=== PATIENT | male | born 1955 | race Caucasian/White ===

== ENCOUNTER 2022-08-04 14:27 | Outpatient (CLI) | payer OTHER, SELFPAY ==
--- OUTSIDE RECORDS SUMMARY | 2022-08-04 14:30 | XMS_ITS | Encounter Summary ---
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 [facility] Procedures Cardiac Rehab Program [address], [address] [place], [place] [address] Referral ID Status Reason Start Date Expiration Date Visits V isits Requested Authorized [id number] Authorized 03/12/2022 03/12/2023 36 36 Reason for Visit Outpatient (Routine) - Authorized Specialty Diagnoses / Procedures Referred By Contact Refer red To Contact Diagnoses Coronary Artery Disease With Stable Angina (With Other Forms Angina Pectoris) ([facility]) [facility] Procedures Cardiac Rehab Program [address], [address] [place], [place] [address] Referral ID Status Reason Start Date Expiration Date Visits V isits Requested Authorized [id number] Authorized 03/12/2022 03/12/2023 36 36 Encounter Details Date Type Department Care Team Description 07/01/2022 Hospital Encounter Department of Cardiac Benja Fry Coronary Artery Rehabilitation ashlee Palomo M.D. 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 aspirin [address] tablet Take 81 mg by mouth 0 daily. clopidogreL (PLAVIX) 75 mg Take 75 mg by mouth 0 tablet daily. levothyroxine (SYNTHROID, Take 125 mcg by 0 LEVOTHROID) 125 mcg tablet mouth every morning before breakfast. metoprolol tartrate Take 25 mg by mouth 0 (LOPRESSOR) 25 mg tablet 2 (two) times a day. nitroglycerin (NITROSTAT) Place 0.4 mg under 0 0.4 mg SL tablet the tongue every 5 (five) minutes as needed for chest pain. rosuvastatin (CRESTOR) 20 Take 20 mg by mouth 0 mg tablet daily. documented as of this encounter Plan of Treatment Upcoming Encounters Date Type Specialty Care Team Description 08/06/2022 Appointment Cardiovascular Disease Benja Fry M.D. [address] [facility] [address] [place] [address] (Wo rk) Scheduled Orders Name Type Priority Associated Diagnoses Order S chedule Cardiac Rehab Card Rehab Routine Coronary Artery Once for 1 Occurrences Program Disease With Stable starting 07/01/2022 Angina (With Other until Forms Angina Pectoris) ([facility]) documented as of this encounter Visit Diagnoses Diagnosis Coronary Artery Disease With Stable Vivienne na (With Other Forms Angina Pectoris) ([facility]) documented in this encounter Additional Health Concerns Assessment Noted Time PHQ-9 Depression Total Score: 6 03/16/2022 9:52 AM CDT documented as of this encounter
--- OUTSIDE RECORDS SUMMARY | 2022-08-04 14:30 | XMS_ITS | Encounter Summary ---
:1955 Author Organization [facility] Address [address] [place] [address] Care Team Providers Name Role Phone Unavailable Primary Care Provider Unavailable Reason for Referral Outpatient (Routine) - Authorized Specialty Diagnoses / Procedures Referred By Contact Refer red To Contact Diagnoses Coronary Artery Disease With Stable Angina (With Other Forms Angina Pectoris) ([facility]) Benja Fry M.D. [facility] Procedures Cardiac Rehab Program [address], [address] [place], [place] [address] Referral ID Status Reason Start Date Expiration Date Visits V isits Requested Authorized [id number] Authorized 03/12/2022 03/12/2023 36 36 Reason for Visit Outpatient (Routine) - Authorized Specialty Diagnoses / Procedures Referred By Contact Refer red To Contact Diagnoses Coronary Artery Disease With Stable Angina (With Other Forms Angina Pectoris) ([facility]) [facility]. [facility] Procedures Cardiac Rehab Program [address], [address] [place], [place] [address] Referral ID Status Reason Start Date Expiration Date Visits V isits Requested Authorized [id number] Authorized 03/12/2022 03/12/2023 36 36 Encounter Details Date Type Department Care Team Description 07/07/2022 Hospital Encounter Department of Cardiac Benja Fry Coronary Artery Rehabilitation ashlee Palomo M.D. Disease With Stable [place], [facility] deejay [address], Angina (With Other [address] [place] [address] [address] Forms Angina [place], [place], Pectoris) ( [facility]) [id number] [place] [address] [phone] Social History Tobacco Use Types Packs/Day Years [...] Disease Benja Fry M.D. [address] [facility] [address] [place] [address] (Wo rk) Scheduled Orders Name Type Priority Associated Diagnoses Order S chedule Cardiac Rehab Card Rehab Routine Coronary Artery Once for 1 Occurrences Program Disease With Stable starting 07/07/2022 Angina (With Other until Forms Angina Pectoris) ([facility]) documented as of this encounter Visit Diagnoses Diagnosis Coronary Artery Disease With Stable Vivienne na (With Other Forms Angina Pectoris) ([facility]) documented in this encounter Additional Health Concerns Assessment Noted Time PHQ-9 Depression Total Score: 6 03/16/2022 9:52 AM CDT documented as of this encounter
--- OUTSIDE RECORDS SUMMARY | 2022-08-04 14:30 | XMS_ITS | Encounter Summary ---
:1955 Author Organization [facility] Address [address] [place] [address] Care Team Providers Name Role Phone Unavailable Primary Care Provider Unavailable Reason for Referral Outpatient (Routine) - Authorized Specialty Diagnoses / Procedures Referred By Contact Refer red To Contact Diagnoses Coronary Artery Disease With Stable Angina (With Other Forms Angina Pectoris) ([facility]) Benja Fry M.D. [facility] Procedures Cardiac Rehab Program [address], [address] [place], [place] [address] Referral ID Status Reason Start Date Expiration Date Visits V isits Requested Authorized [id number] Authorized 03/12/2022 03/12/2023 36 36 Reason for Visit Outpatient (Routine) - Authorized Specialty Diagnoses / Procedures Referred By Contact Refer red To Contact Diagnoses Coronary Artery Disease With Stable Angina (With Other Forms Angina Pectoris) ([facility]) [facility]. [facility] Region Procedures Cardiac Rehab Program [address], [address] [place], [place] [address] Referral ID Status Reason Start Date Expiration Date Visits V isits Requested Authorized [id number] Authorized 03/12/2022 03/12/2023 36 36 Encounter Details Date Type Department Care Team Description 06/30/2022 Hospital Encounter Department of Cardiac Benja Fry Coronary Artery Rehabilitation ashlee Palomo M.D. 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 [address] [facility] [address] [place] [address] (Wo rk) Scheduled Orders Name Type Priority Associated Diagnoses Order S chedule Cardiac Rehab Card Rehab Routine Coronary Artery Once for 1 Occurrences Program Disease With Stable starting 06/30/2022 Angina (With Other until Forms Angina Pectoris) ([facility]) documented as of this encounter Visit Diagnoses Diagnosis Coronary Artery Disease With Stable Vivienne na (With Other Forms Angina Pectoris) ([facility]) documented in this encounter Additional Health Concerns Assessment Noted Time PHQ-9 Depression Total Score: 6 03/16/2022 9:52 AM CDT documented as of this encounter
--- OUTSIDE RECORDS SUMMARY | 2022-08-04 14:30 | XMS_ITS | Clinical Summary ---
:1955 Author Organization [facility] Address [address] [place] [address] Care Team Providers Name Role Phone Unavailable Primary Care Provider Unavailable Source Comments Patient records contain information from all sites at [facility]. For routine questions regarding patient records, call [phone] during business hours, M-F 8:00 AM - 5:00 PM Central Time. Record requests for emergency care only can be directed to [phone] at any time.[facility] Medications Medication Sig Dispensed Refills Start Date End Date Status amLODIPine (NORVASC) 5 Take 5 mg by 0 Active mg tablet mouth daily. aspirin [address] tablet Take 81 mg by 0 Active mouth daily. clopidogreL (PLAVIX) 75 Take 75 mg by 0 Active mg tablet mouth daily. levothyroxine Take 125 mcg by 0 Active (SYNTHROID, LEVOTHROID) mouth every 125 mcg tablet morning before breakfast. metoprolol tartrate Take 25 mg by 0 Active (LOPRESSOR) 25 mg mouth 2 (two) tablet times a day. nitroglycerin Place 0.4 mg 0 Act nathan (NITROSTAT) 0.4 mg SL under the tongue tablet every 5 (five) minutes as needed for chest pain. rosuvastatin (CRESTOR) Take 20 mg by 0 Active 20 mg tablet mouth daily. Encounters Date Type Specialty Care Team Description 08/04/2022 Hospital Encounter Cardiovascular Benja Fry Gonzalez ry Artery Disease Hai Palomo Disease With Stable Angina (With Other For ms Angina Pectoris ) ([facility]) 08/02/2022 Hospital Encounter Cardiovascular Benja Fry [place] ry Artery Disease Hai Palomo Disease With Stable Angina (With Other For ms Angina Pectoris ) ([facility]) 07/30/2022 Hospital Encounter Cardiovascular Benja Fry [place] ry Artery Disease Hai Palomo Disease With Stable Angina (With Other For ms Angina Pectoris ) ([facility]) 07/28/2022 Hospital Encounter Cardiovascular [place], Benja Gonzalez ry Artery Disease K, M.D. Disease With Stable Angina (With Other For ms Angina Pectoris ) ([facility]) 07/26/2022 Hospital Encounter Cardiovascular [place], Benja Gonzalez ry Artery Disease K, M.D. Disease With Stable Angina (With Other For ms Angina Pectoris ) ([facility]) 07/21/2022 Hospital Encounter Cardiovascular [place], Benja Gonzalez ry Artery Disease K, M.D. Disease With Stable Angina (With Other For ms Angina Pectoris ) ([facility]) 07/19/2022 Hospital Encounter Cardiovascular [place], Benja Gonzalez ry Artery Disease K, M.D. Disease With Stable Angina (With Other For ms Angina Pectoris ) ([facility]) 07/16/2022 Hospital Encounter Cardiovascular [place], Benja Gonzalez ry Artery Disease K, M.D. Disease With Stable Angina (With Other For ms Angina Pectoris ) ([facility]) 07/14/2022 Hospital Encounter Cardiovascular [place], Benja Gonzalez ry Artery Disease K, M.D. Disease With Stable Angina (With Other For ms Angina Pectoris ) ([facility]) 07/09/2022 Hospital Encounter Cardiovascular [place], Benja Gonzalez ry Artery Disease K, M.D. Disease With Stable Angina (With Other For ms Angina Pectoris ) ([facility]) 07/07/2022 Hospital Encounter Cardiovascular [place], Benja Gonzalez ry Artery Disease K, M.D. Disease With Stable Angina (With Other For ms Angina Pectoris ) ([facility]) 07/05/2022 Hospital Encounter Cardiovascular [place], Benja Gonzalez ry Artery Disease K, M.D. Disease With Stable Angina (With Other For ms Angina Pectoris ) ([facility]) 07/01/2022 Hospital Encounter Cardiovascular [place], Benja Gonzalez ry Artery Disease K, M.D. Disease With Stable Angina (With Other For ms Angina Pectoris ) ([facility]) 06/30/2022 Hospital Encounter Cardiovascular [place], Benja Gonzalez ry Artery Disease K, M.D. Disease With Stable Angina (With Other For ms Angina Pectoris ) ([facility]) 06/25/2022 Hospital Encounter Cardiovascular [place], Benja Gonzalez ry Artery Disease K, M.D. Disease With Stable Angina (With Other For ms Angina Pectoris ) ([facility]) 06/25/2022 Clinical Cardiovascular [facility], Scheduling Communication Disease Dipti R 06/18/2022 Hospital Encounter Cardiovascular [place], Benja Gonzalez ry Artery Disease K, M.D. Disease With Stable Angina (With Other For ms Angina Pectoris ) ([facility]) 06/14/2022 Hospital Encounter Cardiovascular [place], Benja Gonzalez ry Artery Disease K, M.D. Disease With Stable Angina (With Other For ms Angina Pectoris ) ([facility]) 06/11/2022 Hospital Encounter Cardiovascular [place], Benja Gonzalez ry Artery Disease K, M.D. Disease With Stable Angina (With Other For ms Angina Pectoris ) ([facility]) 06/09/2022 Hospital Encounter Cardiovascular [place], Benja Gonzalez ry Artery Disease K, M.D. Disease With Stable Angina (With Other For ms Angina Pectoris ) ([facility]) 06/07/2022 Hospital Encounter Cardiovascular [place], Benja Gonzalez ry Artery Disease K, M.D. Disease With Stable Angina (With Other For ms Angina Pectoris ) ([facility]) 06/04/2022 Hospital Encounter Cardiovascular [place], Benja Gonzalez ry Artery Disease K, M.D. Disease With Stable Angina (With Other For ms Angina Pectoris ) ([facility]) 06/02/2022 Hospital Encounter Cardiovascular [place], Benja Gonzalez ry Artery Disease K, M.D. Disease With Stable Angina (With Other For ms Angina Pectoris ) ([facility]) 05/31/2022 Hospital Encounter Cardiovascular [place], Benja Gonzalez ry Artery Disease K, M.D. Disease With Stable Angina (With Other For ms Angina Pectoris ) ([facility]) 05/28/2022 Hospital Encounter Cardiovascular [place], Benja Gonzalez ry Artery Disease K, M.D. Disease With Stable Angina (With Other For ms Angina Pectoris ) ([facility]) 05/26/2022 Hospital Encounter Cardiovascular [place], Benja Gonzalez ry Artery Disease K, M.D. Disease With Stable Angina (With Other For ms Angina Pectoris ) ([facility]) 05/24/2022 Hospital Encounter Cardiovascular [place], Ebnja Gonzalez ry Artery Disease K, M.D. Disease With Stable Angina (With Other For ms Angina Pectoris ) ([facility]) from Last 3 Months Social History Tobacco Use Types Packs/Day Years Used Date Smoking Tobacco: Never Assessed Sex Assigned at Date Recorded Not on file Last Filed Vital Signs Vital Sign Reading Time Taken Comments Blood Pressure 120/66 08/03/2022 10:27 AM CDT Pulse - - Temperature - - Respiratory Rate - - Oxygen Saturation - - Inhaled Oxygen Concentration - - Weight 86.2 kg (190 lb) 03/16/2022 9:00 AM CDT Height 172.7 cm (5' 7.99) 08/03/2022 10:00 AM CDT Body Mass Index 28.89 03/16/2022 9:00 AM CDT Plan of Treatment Upcoming Encounters Date Type Specialty Care Team Description 08/06/2022 Appointment Cardiovascular Disease Benja Fry M.D. [address] [address] [place] [address] (Wo rk) Health Maintenance Due Date Last Done Comments CT Colonography 1955 Cologuard 1955 Colonoscopy 1955 Colorectal Cancer Screening 1955 FIT 1955 HIV Screening 1955 Hepatitis C Screening 1955 Thyroid Stimulating Hormone 1955 (TSH) test for thyroid function Zoster Vaccines (1 of 2) 2007 Depression Screening 11/07/2021 (Annual PHQ-2) COVID-19 Vaccine (5 - 05/04/2022 03/09/2022, 09/28/2021, Booster for Pfizer series) 03/03/2021, Additiona l history exists Influenza Vaccine (#1) 2022 09/28/2021, 08/12/2021, 10/10/2020 Creatinine Level 01/14/2023 01/14/2022, 01/13/2022 Sodium Level 01/14/2023 01/14/2022, 01/13/2022 Potassium Level 03/04/2023 03/04/2022, 01/14/2022, 01/13/2022 Fasting Glucose for 01/14/2025 01/14/2022, 01/13/2022 Diabetes Screening Lipid (Cholesterol) 03/02/2027 03/02/2022 Screening DTaP,Tdap,and Td Vaccines 06/10/2027 06/10/2017 (2 - Td or Tdap) Pneumococcal vaccine (0-64 Aged Out No lo nger eligible years) based on patient 's age to complete this topic Insurance Payer Benefit Plan / Subscriber ID Effective Dates Phone Addre ss Type Group NAVEED NAVEED [id number] 2018-Present [phone] [address] [place] [address]
--- OUTSIDE RECORDS SUMMARY | 2022-08-04 14:30 | XMS_ITS | Encounter Summary ---
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 [facility] Procedures Cardiac Rehab Program [address], [address] [place], [place] [address] Referral ID Status Reason Start Date Expiration Date Visits V isits Requested Authorized [id number] Authorized 03/12/2022 03/12/2023 36 36 Reason for Visit Outpatient (Routine) - Authorized Specialty Diagnoses / Procedures Referred By Contact Refer red To Contact Diagnoses Coronary Artery Disease With Stable Angina (With Other Forms Angina Pectoris) ([facility]) [facility] Procedures Cardiac Rehab Program [address], [address] [place], [place] [address] Referral ID Status Reason Start Date Expiration Date Visits V isits Requested Authorized [id number] Authorized 03/12/2022 03/12/2023 36 36 Encounter Details Date Type Department Care Team Description 06/25/2022 Hospital Encounter Department of Cardiac Benja Fry Coronary Artery Rehabilitation ashlee Palomo M.D. 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 documented as of this encounter Progress Notes Chau Sow CCRP - 06/25/2022 8:00 AM CDT Cardiac Rehab Individualized Treatment Plan (ITP) Mr. Chowdary (66 y.o., : 1955) was referred to the [facility] Cardiac Rehab Program and has completed 16 sessions. Medical Record Number (MRN): [id number] Encounter Date: 06/25/2022 PCP: No primary care provider on file. Referring Provider and Rotor Coil Taper 03/16/[address] Yohan Gannon Prescribed Sessions 36 Program Information 03/16/2022 Program Type CR Phase II - Center Based Referral Date 03/03/2022 Primary Diagnosis PCI Date 03/02/2022 Secondary Diagnosis PCI PCI Date 01/13/2022 Enrollment Date 03/16/2022 Risks 03/16/2022 AACVPR Risk Low ECHO Date 03/03/2022 Ejection Fraction (EF) % 66 % Symptoms: Symptoms 03/16/2022 06/01/2022 06/29/2022 Charting Type Initial Assessment Reassessment Reassessment Kenny Dyspnea 2 - Slight 2 - Slight 2 - Slight Cardiovascular Symptoms Claudication;Fatigue;Shortness of Breath;Lightheadedness Claudication;Shortness of Breath;Lightheadedness;Fatigue Claudication;Shortness of Breath;Fatigue;Lightheadedness Claudication Scale 4 - Moderate Claudication (significant, but able to keep walking) 3 - Mild Claudication (easily forgot about) 2 - Onset of Claudication Pain Generalized Edema None None None Right Lower Extremity Edema None None None Left Lower Extremity Edema None None None Circulation Edema No No No Edema Severity None None None Comments - PAD was diagnosed and procedure completed early May; some leg pain is still noted but heis able to walk further without the need to stop PAD sx have improved; able to walk further without the need for rest Exercise Assessment Vital Signs 03/16/2022 06/01/2022 06/29/2022 Source ECG ECG ECG Heart Rate 72 103 81 Source Pulse oximetry Pulse oximetry Pulse oximetry Cardiac Rhythm SR;SB SR SR;SB Ectopy PVCs PVCs PVCs Ectopy Frequency Rare Rare Rare Six Minute Walk Test (6MWT) 03/16/2022 Total Distance Walked (Meters) 228.6 Estimated METs 2.19 % OF PREDICTED DISTANCE 42.83 % Comments stood and stopped; did not sit; needed to due to claudication discomfort that went away with stopping DASI Calculations 03/16/2022 Estimated V02 Peak 23.12 Estimated MET Level 6.61 IPAQ 03/16/2022 MET-mins/week 278 Exercise Session 03/16/2022 06/01/2022 06/29/2022 Session # 1 5 16 Peak METs 2.1 2.5 2.5 Assessment 03/16/2022 06/01/2022 06/29/2022 Exercise Stage of Change Preparation Action Action Assistive Device None None None Do you exercise routinely? No No No Do you perform strength training? No No No Exercise Limitations Yes Yes Yes Limitation Description claudication like sx limit walking progression - - Action Taken will take rest breaks as needed PAD procedure completed; able to walk on TM with no rest breaks - Fall Risk Assessment 03/16/2022 Have you fallen within the last year or do you fear you might fall? No Do you use an assisted device to walk? (Walker, cane, wheelchair, crutch) No Today, do you feel any of the following? Weak, dizzy, shaky, or unsteady? No Have you taken any medication within the last 6 hours which may make you feel drowsy? Such as sleep,pain, or anxiety medication No Exercise Plan Exercise Prescription 03/16/2022 06/01/2022 06/29/2022 Frequency 3-5 sessions per week 3-5 sessions per week 3-5 sessions per week Intensity Work at a level that is comfortable but also challenging Work at a level that is comfortable but also challenging Work at a level that is comfortable but also challenging Target heart rate (pulse): 100-110 100-110 100-110 Rating of Perceived Exertion range (RPE): 11-14 11-14 -14 Rating of Perceived Dyspnea (Kenny Dyspnea): -01/14-01/14-01/14 METS: 2.1-3.1 2.5-3.5 2.5-3.5 Maintain SpO2 at this percentage: 97 97 97 Treadmill Speed: 1.5 1.6 1.6 Treadmill Grade: 0 0 0 Duration Warm-up minutes;Aerobic exercise minutes;Increase 1-5 minutes each session, as tolerated Warm-up minutes;Aerobic exercise minutes;Increase 1-5 minutes each session, as tolerated Warm-up minutes;Aerobic exercise minutes;Increase 1-5 minutes each session, as tolerated Warm Up Minutes: 2-3 2-3 2-3 Aerobic exercise minutes: 30 45 45 Cool Down minutes: 2-3 2-3 2-3 Gradually progress to this many minutes per week: 150 150 150 Goal minutes: 55 55 55 Type Arm Ergometer;Recumbent stepper (with or without arms);Walk indoors;Walk outdoors;Walk treadmill Arm Ergometer;Recumbent stepper (with or without arms);Walk indoors;Walk outdoors;Walk treadmill Arm Ergometer;Recumbent stepper (with or without arms);Walk indoors;Walk outdoors;Walk treadmill Interval Training Moderate intensity interval training Moderate intensity interval training Moderateintensity interval training Progression Use RPE to guide when to increase work level intensity and duration Use RPE to guide when to increase work level intensity and duration Use RPE to guide when to increase work level intensity and duration Increase continuous exercise to this many minutes: 55 55 55 Increase by this many METS: 3.5 3.5 3.5 Flexibility and Balance Stretch major muscle groups daily Stretch major muscle groups daily Stretch major muscle groups daily Strength Training Calisthenics Calisthenics Calisthenics Reps: 10 10 10 Sets: 1 1 1 Other Exercise Avoid prolonged sitting;Gardening/Yardwork/Housework;Farm Chores;Pedometer: 2,500 steps per day above baseline;Play with children;Take the stairs;Walk for transportation;Walk on work breaks Avoid prolonged sitting;Gardening/Yardwork/Housework;Farm Chores;Pedometer: 2,500 steps per day above baseline;Take the stairs;Walk for transportation Avoid prolonged sitting;Gardening/Yardwork/Housework;Farm Chores;Pedometer: 2,500 steps per day above baseline;Take the stairs;Walk for transportation Plan 03/16/2022 06/01/2022 06/29/2022 Charting Type Initial Assessment Reassessment Reassessment Goals Compliance to on-site program;Compliance to home program;Return to work / community service;Target MET level (Comment);Improve exercise tolerance Compliance to on-site program;Compliance to home program;Return to work / community service;Target MET level (Comment);Improve exercise tolerance Compl iance to on-site program;Compliance to home program;Return to work / community service;Target MET level (Comment);Improve exercise tolerance Interventions Therapist Discussion;Vocational/return to work recommendations;Equipment/facility orientation;Review of signs/symptoms to report;Exercise/activity guidelines Therapist Discussion;Vocational/return to work recommendations;Equipment/facility orientation;Review of signs/symptoms to report;Exercise/activity guidelines Therapist Discussion;Vocational/return to work recommendations;Equipment/facility orientation;Review of signs/symptoms to report;Exercise/activity guidelines Progress Toward Goals 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; 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 but is able to get things done 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; 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sx but is able to get things done 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; 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 but is able to get things done Activity Education ACTIVITY LOG [id number];EXERCISE AND PHYSICAL ACTIVITY GUIDELINES FOR PEOPLE WITH HEART DISEASE [id number];EXERCISE PROGRAM GUIDELINES [id number] ACTIVITY LOG [id number];EXERCISE AND PHYSICAL ACTIVITY GUIDELINES FOR PEOPLE WITH HEART DISEASE [id number];EXERCISE PROGRAM GUIDELINES [id number] ACTIVITY LOG [id number];EXERCISE AND PHYSICAL ACTIVITY GUIDELINES FOR PEOPLE WITH HEART DISEASE [id number];EXERCISEPROGRAM GUIDELINES [id number] Comments - PAD procedure in early May; able to walk on TM without the need for 3 rest breaks as it was prior to procedure no change Nutrition Assessment Vital Signs 03/16/2022 06/01/2022 06/29/2022 Height 172.7 cm 172.7 cm 172.7 cm Weight 86.183 kg - - BMI (Calculated) 28.9 - - Assessment 03/16/2022 06/01/2022 06/29/2022 Nutrition Stage of Change Maintenance Maintenance Maintenance Dietary Recommendations Low Salt;Low Fat/ Low Cholesterol Low Salt;Low Fat/ Low Cholesterol Low Salt;Low Fat/ Low Cholesterol Low Salt Amount 2000 mg 2000 mg 2000 mg Appetite Good Good Good Social History Substance and Sexual Activity Alcohol Use Not on file Nutrition Plan Plan 03/16/2022 06/01/2022 06/29/2022 Charting Type Initial Assessment Reassessment Reassessment Goals Increase fruit intake;Increase vegetable intake;Decrease overall portions;Compliance with dietary guidelines;Normalize appetite;Reduce saturated fat intake;Limit sodium intake Increase fruit intake;Increase vegetable intake;Decrease overall portions;Compliance with dietary guidelines;Normalize ap petite;Reduce saturated fat intake;Limit sodium intake Increase fruit intake;Increase vegetable intake;Decrease overall portions;Compliance with dietary guidelines;Normalize appetite;Reduce saturated fat intake;Limit sodium intake Goal Weight no goal weight set on initial session no goal weight set on initial session no goal weight set on initial session Modify weight by Decrease;Percent (%) Decrease;Percent (%) Decrease;Percent (%) Percent (%) 5 % 5 % 5 % Interventions Dietary Consult Referral;Discussion on identifying/incorporating diet changes;Home weight monitoring;Discussion on current eating habits;Diet survey review;Meal/snack related to exercise;Nutrition Class;Therapist Discussion Dietary Consult Referral;Discussion on identifying/incorporatingdiet changes;Home weight monitoring;Discussion on current eating habits;Diet survey review;Meal/snack related to exercise;Nutrition Class;Therapist Discussion Dietary Consult Referral;Discussion on identifying/incorporating diet changes;Home weight monitoring;Discussion on current eating habits;Diet survey review;Meal/snack related to exercise;Nutrition Class;Therapist Discussion Progress Toward Goals pt is working on low salt; low cholesterol pt is working on low salt; low cholesterol pt is working on low salt; low cholesterol Nutrition Education LOWERING HIGH CHOLESTEROL THROUGH DIET [id number];CONTRACTS MANAGER CONSULT/CLASS LOWERING HIGH CHOLESTEROL THROUGH DIET [id number];CONTRACTS MANAGER CONSULT/CLASS LOWERING HIGH CHOLESTEROL THROUGH DIET [id number];CONTRACTS MANAGER CONSULT/CLASS Comments - no change no change Psychosocial Assessment PHQ-9 03/16/2022 Charting Type Initial Assessment PHQ-9 Score 6 Interpretation [facility] 03/16/2022 Total Score 20 Assessment 03/16/2022 06/01/2022 06/29/2022 Psychosocial Stage of Change Maintenance Maintenance Maintenance Current Medication Therapy No No No Support Systems Spouse;Significant other;Children;Family members - - Patient Stress Factors Health changes Health changes Health changes Needs Expressed Denies Denies Denies Psychosocial Plan Plan 03/16/2022 06/01/2022 06/29/2022 Charting Type Initial Assessment Reassessment Reassessment Goals Verbalize appropriate coping skills;Identify a positive support system;Utilize support system;Improve PHQ-9 score;Return to leisure and social activities;Return to vocational activities;Identifies stressors;Normalize Sleep patterns;Verbalize realistic health related expectations Verbalize appropriate coping skills;Identify a positive support system;Utilize support system;Improve PHQ-9 score;Return to leisure and social activities;Return to vocational activities;Identifies stressors;Normalize Sleep patterns;Verbalize realistic health related expectations Verbalize appropriate coping skills;Identify a positive support system;Utilize support system;Improve PHQ-9 score;Return to leisure and social activities;Return to vocational activities;Identifies stressors;Normalize Sleep patterns;Verbalizerealistic health related expectations Interventions Therapist Discussion;Patient declined intervention;Review depression S/S;Assist patient in identifying stressors Therapist Discussion;Patient declined intervention;Review depression S/S;Assist patient in identifying stressors Therapist Discussion;Patient declined intervention;Review depression S/S;Assist patient in identifying stressors Progress Toward Goals pt is frustrated with PAD like sx that limit him; he plans to discuss treatment further with his PCP as it is not on his diagnosis list pt is frustrated with PAD like sx that limit him; he plans to discuss treatment further with his PCP as it is not on his diagnosis list pt is frustrated with PAD like sx that limit him; he plans to discuss treatment further with his PCP as it isnot on his diagnosis list Psychosocial Education STRESS MANAGEMENT/RELAXATION TECHNIQUE CLASS STRESS MANAGEMENT/RELAXATION TECHNIQUE CLASS STRESS MANAGEMENT/RELAXATION TECHNIQUE CLASS Comments - PAD sx improved no change Other Core Components Hypertension Assessment Vital Signs 03/16/2022 06/01/2022 06/29/2022 BP 130/68 116/74 146/78 BP Location Left arm;Upper Left arm;Upper Left arm;Upper Assessment 03/16/2022 06/01/2022 06/29/2022 Hypertension Stage of Change Action Action Action History of Hypertension Yes Yes Yes Current Medication Therapy Yes Yes Yes Hypertension Plan Plan 03/16/2022 06/01/2022 06/29/2022 Charting Type Initial Assessment Reassessment Reassessment Goals Stable BP response;BP at physician prescribed goal;Decrease sodium Stable BP response;BP at physician prescribed goal;Decrease sodium Stable BP response;BP at physician prescribed goal;Decrease sodium Interventions Therapist Discussion;Communication with provider Therapist Discussion;Communication with provider Therapist Discussion;Communication with provider Progress Toward Goals pt is recent to BP medications; his BP is better now than before; tolerating medications well and working on low salt diet pt is recent to BP medications; his BP is better now than before; tolerating medications well and working on low salt diet pt is recent to BP medications; his BP is better now than before; tolerating medications well and working on low salt diet Hypertension Education BLOOD PRESSURE RECORD WALLET CARD [id number];HIGH BLOOD PRESSURE (HYPERTENSION) [id number];MANAGING CHOLESTEROL SODIUM AND TRIGLYCERIDES [id number] BLOOD PRESSURE RECORD WALLET CARD [id number];HIGH BLOOD PRESSURE (HYPERTENSION) [id number];MANAGING CHOLESTEROL SODIUM AND TRIGLYCERIDES [id number] BLOOD PRESSURE RECORD WALLET CARD [id number];HIGH BLOOD PRESSURE (HYPERTENSION) [id number];MANAGING CHOLESTEROL SODIUM AND TRIGLYCERIDES SX4805-09 Comments - no change no change Hyperlipidemia Assessment Assessment 03/16/2022 06/01/2022 06/29/2022 History of Hyperlipidemia Yes Yes Yes Current Medication Therapy Yes Yes Yes Hyperlipidemia Stage of Change Maintenance Maintenance Maintenance Lipids No lab values to display. Hyperlipidemia Plan Plan 03/16/2022 06/01/2022 06/29/2022 Charting Type Initial Assessment Reassessment Reassessment Goals Improve Lipids;Lipids in optimal range;Understand current Lipid profile Improve Lipids;Lipids in optimal range;Understand current Lipid profile Improve Lipids;Lipids in optimal range;Understand current Lipid profile Interventions Therapist Discussion;[employer] Travel Counselor consult/class;Review lipid profile;Discussion on statins Therapist Discussion;[employer] Travel Counselor consult/class;Review lipid profile;Discussion on statins Therapist Ashely borjas;[employer] Travel Counselor consult/class;Review lipid profile;Discussion on statins Progress Toward Goals tolerating statin well tolerating statin well tolerating statin well Hyperlipidemia Education LOWERING HIGH CHOLESTEROL THROUGH DIET [id number] LOWERING HIGH CHOLESTEROL THROUGH DIET [id number] LOWERING HIGH CHOLESTEROL THROUGH DIET [id number] Comments - no change no change Diabetes Assessment Lab Results None Diabetes Plan Plan 03/16/2022 06/01/2022 06/29/2022 Charting Type Initial Assessment Reassessment Reassessment Tobacco Assessment Smoking History/Assessment 03/16/2022 Smoking Status Former (greater than 6 months) Quit Date 11/15/2005 Smoking Types cigarettes Packs Per Day 1 Years 32 Assessment 03/16/2022 06/01/2022 06/29/2022 Charting Type Initial Assessment Reassessment Reassessment Tobacco Stage of Change Maintenance - - Exposure to second hand smoke None Identified None Identified None Identified Social History Substance and Sexual Activity Drug Use Not on file Drug Abuse Screening Test (DAST) 03/16/2022 06/01/2022 06/29/2022 How many times in the past year have you used a recreational drug or used a prescription medication for nonmedical reasons? Never Never Never Tobacco Plan Plan 03/16/2022 06/01/2022 06/29/2022 Charting Type Initial Assessment Reassessment Reassessment Progress Toward Goals has been smoke free since 2005 and it is going well - - Heart Failure Assessment Assessment 03/16/2022 06/01/2022 06/29/2022 Generalized Edema None None None Right Lower Extremity Edema None None None Left Lower Extremity Edema None None None Circulation Edema No No No Edema Severity None None None Heart Failure Plan Plan 03/16/2022 06/01/2022 06/29/2022 Charting Type Initial Assessment Reassessment Reassessment Medication Compliance Assessment Assessment 03/16/2022 06/01/2022 06/29/2022 Med Compliance Stage of Change Maintenance Maintenance Maintenance Medication Compliance Plan Plan 03/16/2022 06/01/2022 06/29/2022 Charting Type Initial Assessment Reassessment Reassessment Goals Medication compliance;Knowledge of medication (Comment) Medication compliance;Knowledge of medication (Comment) Medication compliance;Knowledge of medication (Comment) Interventions Therapist Discussion;Medication review Therapist Discussion;Medication review Therapist Discussion;Medication review Comments reviewed on initial session - - Fletcher Education/Other Education: Medications were reviewed every visit. documented in this encounter Plan of Treatment Upcoming Encounters Date Type Specialty Care Team Description 08/06/2022 Appointment Cardiovascular Disease Benja Fry M.D. [address] [place] [address] [address] [place] [address] (Wo rk) Scheduled Orders Name Type Priority Associated Diagnoses Order S chedule Cardiac Rehab Card Rehab Routine Coronary Artery Once for 1 Occurrences Program Disease With Stable starting 06/25/2022 Angina (With Other until Forms Angina Pectoris) ([facility]) documented as of this encounter Visit Diagnoses Diagnosis Coronary Artery Disease With Stable Vivienne na (With Other Forms Angina Pectoris) ([facility]) documented in this encounter Additional Health Concerns Assessment Noted Time PHQ-9 Depression Total Score: 6 03/16/2022 9:52 AM CDT documented as of this encounter
--- OUTSIDE RECORDS SUMMARY | 2022-08-04 14:30 | XMS_ITS | Encounter Summary ---
:1955 Author Organization [facility] Address [address] [place] [address] Care Team Providers Name Role Phone Unavailable Primary Care Provider Unavailable Reason for Referral Outpatient (Routine) - Authorized Specialty Diagnoses / Procedures Referred By Contact Refer red To Contact Diagnoses Coronary Artery Disease With Stable Angina (With Other Forms Angina Pectoris) ([facility]) Benja Fry M.D. [facility] Procedures Cardiac Rehab Program [address], [address] [place], [place] [address] Referral ID Status Reason Start Date Expiration Date Visits V isits Requested Authorized [id number] Authorized 03/12/2022 03/12/2023 36 36 Reason for Visit Outpatient (Routine) - Authorized Specialty Diagnoses / Procedures Referred By Contact Refer red To Contact Diagnoses Coronary Artery Disease With Stable Angina (With Other Forms Angina Pectoris) ([facility]) [facility].D. [facility] [place] [facility] Procedures Cardiac Rehab Program [address], [address] [place], [place] [address] Referral ID Status Reason Start Date Expiration Date Visits V isits Requested Authorized [id number] Authorized 03/12/2022 03/12/2023 36 36 Encounter Details Date Type Department Care Team Description 07/30/2022 Hospital Encounter Department of Cardiac Benja Fry Coronary Artery Rehabilitation ashlee Palomo M.D. Disease With Stable [place], [facility] rotary drier [address], Angina (With Other [address] [place] [address] [address] Forms Angina [place], [place], Pectoris) ( [facility]) [id number] [place] [address] [phone] Social History Tobacco Use Types Packs/Day Years [...] Disease Benja Fry M.D. [address] [facility] [facility] [address] [place] [address] (Wo rk) Scheduled Orders Name Type Priority Associated Diagnoses Order S chedule Cardiac Rehab Card Rehab Routine Coronary Artery Once for 1 Occurrences Program Disease With Stable starting 07/30/2022 Angina (With Other until Forms Angina Pectoris) ([facility]) documented as of this encounter Visit Diagnoses Diagnosis Coronary Artery Disease With Stable Vivienne na (With Other Forms Angina Pectoris) ([facility]) documented in this encounter Additional Health Concerns Assessment Noted Time PHQ-9 Depression Total Score: 6 03/16/2022 9:52 AM CDT documented as of this encounter
--- OUTSIDE RECORDS SUMMARY | 2022-08-04 14:30 | XMS_ITS | Clinical Summary ---
:1955 Author Organization [email or web address] [place] [address] Care Team Providers Name Role Phone Flako Pierre MD Primary Care Provider Allergies No known active allergies Medications Medication Sig Dispensed Refills Start End Status Date Date multivitamins-mine Take 1 tablet by 0 Active rals-lutein mouth once daily. 1 (CENTRUM SILVER) tab tablet calcium 600 mg Take 2 capsules 0 Active capsule by mouth once 1 daily. levothyroxine Take 125 mcg by 0 Active (SYNTHROID) 125 mouth once daily. [address] 1 TABLET 0 A ctive (NITROSTAT) 0.4 mg UNDER THE TONGUE 2 sublingual tablet NEEDED FOR CHEST PAIN. MAY REPEAT EVERY 5 MINUTES FOR UP TO 3 DOSES. CALL 911 AFTER USE aspirin 81 mg cap Take by mouth. 0 Active acetaminophen SR Take 1,300 mg by 0 Active (TYLENOL mouth every 8 ARTHRITIS) 650 mg hours. Max Extended-Release acetaminophen tablet dose: 4000mg in 24 hrs. amLODIPine Take 1 Tablet (5 90 Tablet 0 Ac tive (NORVASC) 5 mg mg) by mouth once 2 tabletIndications: daily. HTN (hypertension) rosuvastatin Take 1 Tablet (20 90 Tablet 0 Active (CRESTOR) 20 mg mg) by mouth at 2 tabletIndications: bedtime. CAD S/P percutaneous coronary angioplasty clopidogreL Take 1 Tablet (75 90 Tablet 3 Active (PLAVIX) 75 mg mg) by mouth 2 tabletIndications: every morning. CAD S/P percutaneous coronary angioplasty isosorbide Take one-half 45 Tablet 0 Activ e mononitrate tablet (15 mg) by 2 (IMDUR) 30 mg mouth once daily. extended release tablet 24 HourIndications: CAD S/P percutaneous coronary angioplasty chlorthalidone Take 0.5 Tablets 45 Tablet 2 Active (HYGROTON) 25 mg (12.5 mg) by 2 tabletIndications: mouth every HTN (hypertension) morning. metoprolol Take 1 Tablet (25 180 Tablet 1 Active tartrate mg) by mouth two 2 (LOPRESSOR) 25 mg times daily. tabletIndications: Hypertension, unspecified type, PAD (peripheral artery disease) (HC) metoprolol Take one and 270 Tablet 0 Disco ntinued tartrate one-half tablets 2 022 (*E rror/Order (LOPRESSOR) 25 mg (37.5 mg) by entry error) tabletIndications: mouth 2 times CAD S/P daily. percutaneous coronary angioplasty metoprolol Take 1 Tablet (25 90 Tablet 1 D iscontinued tartrate mg) by mouth two 2 022 (*M edication (LOPRESSOR) 25 mg times daily. 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 S/P angiogram of extremity 05/18/2022 S/P insertion of iliac artery stent 05/18/2022 Overview: Bilateral iliac artery stents CAD S/P percutaneous coronary angioplasty 01/13/2022 Overview: - 01/13/22: s/p rotational atherectomy and NOAH X 2 mLAD *consider staged intervention to RCA - 03/02/22: complex PCI of severely disea sed RCA; rotational atherectomy utilized; s/p NOAH pRCA, s/p NOAH mRCA, s/p NOAH dRCA Paroxysmal atrial fibrillation 07/16/2011 Erectile dysfunction 07/16/2011 Encounters Date Type Specialty Care Team Description 07/07/2022 Office Visit Maninder Begum MD office vis it (OV; Imaging after visit; 6w FU aortogram and i liac stenting) 07/07/2022 Hospital Encounter Vivek Chan H, Periph eral vascular Allied Health disease with c laudication (HC) 07/07/2022 Travel 06/18/2022 Refill Abilio Qureshi Refill Request MD Luca (Chlorthalidone ) 05/18/2022 Anesthesia Event Ayo Dai MD Pickering, Jordan L, ALEXANDRA 05/18/2022 Surgery Maninder Begum MD PERCUTANEO US AORTOGRAM, BILATERAL ILIAC STENTING 05/18/2022 Hospital Encounter Maninder Begum MD 05/18/2022 Orders Only Shazia Banks <No scans att ached> MD Jerilyn 05/18/2022 Travel from Last 3 Months Social History Tobacco Use Types Packs/Day Years Used Date Former Smoker Cigarettes Quit: 11/15/19 06 Smokeless Tobacco: Never Used Tobacco Cessation: Counseling Given: Yes Comments: TIP 01/14/22 Alcohol Use Standard Drinks/Week Comments Yes 1.7 (1 standard drink = 0.6 oz pure alco hol) Sex Assigned at Date Recorded Not on file COVID-19 Exposure Response Date Recorded In the last 10 days, have you been in contact with No / Unsu re 07/07/2022 1:43 PM CDT someone who was confirmed or suspected to have Coronavirus/COVID-19? Obstetrics History Last Filed Vital Signs Vital Sign Reading Time Taken Comments Blood Pressure 144/72 07/07/2022 1:58 PM CDT Pulse 60 07/07/2022 1:58 PM CDT Temperature 36 ??C (96.8 ??F) 05/18/2022 1:00 PM CDT Respiratory Rate 16 05/18/2022 1:00 PM CDT Oxygen Saturation 98% 07/07/2022 1:58 PM CDT Inhaled Oxygen Concentration - - Weight 87.1 kg (192 lb) 07/07/2022 1:58 PM CDT Height 172.7 cm (5' 8) 05/18/2022 7:02 AM CDT Body Mass Index 29.19 05/18/2022 7:02 AM CDT Plan of Treatment Health Maintenance Due Date Last Done Comments Tdap 1968 Depression screening for age 12+ 1969 BMI (ht and wt on same day) for 1975 age 18+ Hepatitis C screening for age 0212/20/1975 18-79 Tetanus booster 1977 Colonoscopy through age 75 2002 Zoster (shingles) series for age 0212/20/2007 50+ (1 of 2) Influenza for age 50-64 07/08/2022 Lipids for age 45-75 03/02/2027 03/02/2022 COVID-19 vaccine series Completed 03/09/2022, 09/28/2021, 03/03/2021, Additional history exists Procedures Procedure Name Priority Date/Time Associated Diagnosis Comme nts US ANKLE BRACHIAL Routine 07/07/2022 3:33 PM Peripheral vascul ar Results for this INDEX BILATERAL CDT disease with procedure ar e in claudication (HC) the result s section. HCHG ACTIVATED Timed 05/18/2022 8:56 AM Results for this CLOTTING TM CV CDT procedure are in the results section. HCHG ACTIVATED Timed 05/18/2022 8:37 AM Results for this CLOTTING TM CV CDT procedure are in the results section. ENDOTRACHEAL TUBE Routine 05/18/2022 7:55 AM Resu lts for this CDT procedure are i n the results section. ENDOTRACHEAL TUBE Routine 05/18/2022 7:55 AM Resu lts for this CDT procedure are i n the results section. ENDOTRACHEAL TUBE Routine 05/18/2022 7:55 AM Resu lts for this CDT procedure are i n the results section. PV OTHER PROCEDURE Routine 05/18/2022 7:24 AM Res ults for this CDT procedure are i n the results section. ANGIOGRAM FOR 05/18/2022 7:11 AM CLAUDICATION VASCULAR OR PROCEDURE CDT Case Notes AORTOGRAM, ILIAC STENTING, P OSS BILATERAL FEMORAL ARTERY CUTDOWN, POSS BILATERAL FEMORAL ENDARTERECTOMIES-SMILEY W/GORE *COVID + ON 04/11, NO TEST NEEDED* INSERTION AND PLACEMENT VASCULAR STENT ILIAC 10/2022 7:11 AM CDT CLAUDICATION ARTERY Case Notes AORTOGRAM, ILIAC STENTING, P OSS BILATERAL FEMORAL ARTERY CUTDOWN, POSS BILATERAL FEMORAL ENDARTERECTOMIES-SMILEY W/GORE *COVID + ON 04/11, NO TEST NEEDED* HCHG KIT PR5 Routine 05/18/2022 7:05 AM CDT Resul ts for this procedure are i n the results section . [facility] DRSG PR5 Routine 05/18/2022 7:05 AM CDT Resu lts for this procedure are i n the results section . [facility] DRSG PR1 Routine 05/18/2022 7:05 AM CDT Resu lts for this procedure are i n the results section . [facility] TUBING PR20 Routine 05/18/2022 7:05 AM CDT R esults for this procedure are i n the results section . [facility] TUBING PR1 Routine 05/18/2022 7:05 AM CDT Re sults for this procedure are i n the results section . [facility] ANES ARTERIAL CATH Routine 05/18/2022 7:05 AM CDT Results for this FOR SAMPLE MONITOR TRANS pro cedure are in the results section . [facility] CATH PR5 Routine 05/18/2022 7:05 AM CDT Resu lts for this procedure are i n the results section . EKG 12 LEAD Preop 05/18/2022 6:36 AM CDT Resul ts for this procedure are i n the results section . TYPE & SCREEN Preop 05/18/2022 6:29 AM CDT Resu lts for this procedure are i n the results section . NUCLEATED RED BLOOD CELLS STAT 05/18/2022 6:29 AM CDT Results for this PERCENT OF BLOOD procedur e are in the LEUKOCYTES results section . BASIC METABOLIC PANEL Preop 05/18/2022 6:29 AM CDT Results for this procedure are i n the results section . CBC W PLT NO DIFF Preop 05/18/2022 6:29 AM CDT Results for this procedure are i n the results section . SCAN-OPERATIVE/PROCEDURE 05/18/2022 12:00 AM CDT Results for this REPORT procedure are i n the results section . SCAN-CARDIAC STRIP 05/18/2022 12:00 AM CDT Results for this procedure are i n the results section . from Last 3 Months Results US ANKLE BRACHIAL INDEX BILATERAL (07/07/2022 3:33 PM CDT) Anatomical Region Laterality Modality ANKLES, ANKLE L, ANKLE R Ultrasound Specimen (Source) Anatomical Collection Method Collection Time Re ceived Time Location / / Volume Laterality 07/07/2022 3:17 PM CDT Narrative 07/07/2022 5:32 PM CDT VASCULAR ULTRASOUND REPORT MANJEET PENN Accession#: ?? [id number] : ?1955 ??Study Date: ?? 06/09 3:17:43 PM Age: ?66 years ?? Tech: ? BHM Gender: M ?Referring MD: SA EVA BANKS Site: [facility] Study performed: ?Resting ASAD, (b ilateral). Indication for study: Follow-up BIOFUELS OPERATIONS MANAGER/sten t/bypass Study Quality: ?Good TECHNIQUE: Lower/upper extremity arteries were exam ined per exam protocol by duplex ultrasound, color-flow and spectral Doppler. Peak systolic velocities (PSV), Doppler waveform quality, velocity ratios and vessel size in cm, were documented at protocol specific sites. Physiologic data including segmental pressures, ankle/brachial index (ASAD), digit PPG recordings, laser Doppler flowmetry and digit temperatures were documented at sites per exam protoc ol and test requirements. IMPRESSION: 1. Right ASAD is normal at 1.23 and left ASAD is normal at 1.20. Normal pulse volume recordings at both ankles. COMPARISON: Compared to prior study 04/07/2022, No c hanges on the right. On the left the ASAD has improved significantly from 0.71 to 1.20. FINDINGS: Pressures +-----+ +--------+ +-----+ ? RIGHT (mmHg) ? LEFT (mmHg) ? +-----+ +--------+ +-----+ Index ?129 ? Brachial ?1 28 ? Index +-----+ +--------+ +-----+ 1.22 ?157 ?BIOFUELS OPERATIONS MANAGER ?155 ? 1.20 +-----+ +--------+ +-----+ 1.22 ?158 ?DPA ?150 ? 1.16 +-----+ +--------+ +-----+ Yamil Funk MD. Electronically signed on 07/07/2022 5:32: 04 PM This study was performed and interpreted by a service accredited by the Intersocietal Accreditation Commission (IAC/Vascular), www.intersocietal.org/vascular Report generated by [employer]. ??Final ?? Procedure Note Yamil Funk MD - 07/07/2022 VASCULAR ULTRASOUND REPORT MANJEET PENN : 1955 Study Date: 07/07/2022 3:1 7:43 PM Age: 66 years Tech: [facility] Gender: M Referring MD: SHAZIA BANKS Site: [facility] Study performed: Resting ASAD, (bilateral ). Indication for study: Follow-up BIOFUELS OPERATIONS MANAGER/sten t/bypass Study Quality: Good TECHNIQUE: Lower/upper extremity arteries were exam ined per exam protocol by duplex ultrasound, color-flow and spectral Doppler. Peak systolic velocities (PSV), Doppler waveform quality, velocity ratios and vessel size in cm, were documented at protocol specific sit es. Physiologic data including segmental pressures, ankle/brachial index (ASAD), digit PPG recordings, laser Doppler flowmetry and digit temperatures were documented at sites per exam protocol and test requirements. IMPRESSION: 1. Right ASAD is normal at 1.23 and left ASAD is normal at 1.20. Normal pulse volume recordings at both ankles. COMPARISON: Compared to prior study 04/07/2022, No c hanges on the right. On the left the ASAD has improved significantly from 0.71 to 1.20. FINDINGS: Pressures +-----+ +--------+ +-----+ RIGHT (mmHg) LEFT (mmHg) +-----+ +--------+ +-----+ Index 129 Brachial 128 Index +-----+ +--------+ +-----+ 1.22 157 BIOFUELS OPERATIONS MANAGER 155 1.20 +-----+ +--------+ +-----+ 1.22 158 DPA 150 1.16 +-----+ +--------+ +-----+ Yamil Funk MD. Electronically signed on 07/07/2022 5:32: 04 PM This study was performed and interpreted by a service accredited by the Intersocietal Accreditation Commission (IAC/Vascular), www.intersocietal.org/vascular Report generated by [employer]. Final Shazia Banks MD (ABNORMAL) ACTIVATED CLOTTING TIME [id number] ACT (05/18/2022 8:56 AM CDT)Only the most recent of2 resultswithin the time period is included. P athologist Signature ACTIVATED 237 (H) 74 - 125 05/19/2022 [facility] CLOTTING TIME, sec 6:36 PM CDT LABORATORY-CE N POCT TRAL LABORATORY Specimen Anatomical Collection Method Collection Time Receive d Time (Source) Location / / Volume Laterality Blood BLOOD SPECIMEN / 05/18/2022 8:56 AM 05/19 6:36 Unknown CDT PM CDT Maninder Begum MD HEMATOLOGY Performing Organization Address City/State/ZIP Code Phon e Number [facility] [address] [place] [address] LABORATORY-CENTRAL 2000 LABORATORY HCHG TUBE PR1, HCHG STYLET PR1, HCHG MOUTHPIECE PR1 (05/18/2022 7:55 AM CDT) Narrative Demetrio Jang CRNA - 05/18/2022 7 :55 AM CDT Demetrio Jang CRNA ? 05/18/2022 ??7:55 AM Procedure: ETT Patient location during procedure: OR ETT Properties Mask Ventilation: oral airway (hurtado) Final Technique: direct laryngoscopy Type: straight Location: oral Cuffed: yes Tube Size: 7.5 mm Stylet: yes Laryngoscope Blade: Mac Blade Size: 3 Cormack-Lehane Grade View: 1 Insertion Attempts: 1 Placement Verification: auscultation, en d tidal CO2 and symmetrical chest wall movement Assessment: pharynx clear, atraumatic an d dentition unchanged Secured at: 23 Measured From: lips Tooth guard used and removed: yes Difficulty: 0 (not difficult) Electronically signed by Priya Jang CRNA ? Ayo Dai MD ANESTHESIA PX NOTE ORDERABLE S PV OTHER PROCEDURE (05/18/2022 7:24 AM CDT) Anatomical Region Laterality Modality Other Specimen (Source) Anatomical Location Collection Method / Collectio n Time Received Time / Laterality Volume Narrative 05/18/2022 7:24 AM CDT Maninder Begum MD ? 05/18/2022 ??7:26 AM I have seen the patient and the procedur e has been discussed. The planned procedure is Aortogram, poss ible iliac bilateral angioplasty, possible bilateral femoral endarterectomies. The indication, benefits and risks, bene fits and alternatives of the procedure have been fully explained. to the patient. The consent form has been signed and is in the patients chart. The surgical site has been marked by mys elf. Manjeet Penn has no further question s and would like to proceed with the above stated procedure. Maninder Begum MD Courtroom Deputy Or Calendar Clerk of [facility] Vascular and Endovascular Surgeon 27:25 AM Maninder Begum MD CV IMAGING HCHG CATH PR5, HCHG ANES ARTERIAL CATH FOR SAMPLE MONITOR TRANS, HCHG TUBING PR1, HCHG TUBING PR20, HCHG DRSG PR1, HCHG DRSG PR5, HCHG KIT PR5 (05/18/2022 7:05 AM CDT) Narrative Ayo Dai MD - 05/18/2022 7:05 AM CDT Ayo Dai MD ? 05/18/2022 ??7:05 AM Arterial Line Patient location during procedure: pre-o p Start time: 05/18/2022 7:05 AM Indications: lab sampling and monitoring Staffing Preanesthetic Checklist Completed: patient identified, risks and benefits discussed, consent obtained and timeout performed Arterial Line Patient position: supine. Comment:. Laterality: left Site: radial Local Anesthetic: lidocaine 1%. Securement/dressing: Biopatch applied, d ressing applied. Comment: Vessel Purse Seining Hand Additional supplies used to locate vesse l: no Needle Catheter size: 20 G. Comment:. Catheter length: 4.5 cm. Comment: Events: no complications. Electronically signed by Ayo Dai MD ? Ayo Dai MD ANESTHESIA PX NOTE ORDERABLE S EKG (05/18/2022 6:36 AM CDT) Component Value Ref Range Test Analysis Performed Pathologis t Method Time At Signature Interpretation Sinus bradycardia BEYOND NOW Left axis deviation Cannot rule out Inferior [place], ??(cited on or before 04-Mar-20) Nonspecific T wave abnormality Abnormal ECG When compared with ECG of 04-MAR-2022 06:22, Criteria For Anterior [place] no longer Present Ventricular Rate 48 BPM BEYOND NOW Atrial Rate 48 BPM BEYOND NOW P-R Interval 160 ms BEYOND NOW QRS Duration 90 ms BEYOND NOW QT 452 ms BEYOND NOW QTc 403 ms BEYOND NOW P [place] 39 degrees BEYOND NOW R [place] -35 degrees BEYOND NOW T [place] -14 degrees BEYOND NOW Specimen Anatomical Collection Method Collection Time Receive d Time (Source) Location / / Volume Laterality 05/18/2022 6:36 AM 8:50 CDT PM CDT Narrative [facility] NOW - 05/18/2022 8:50 PM CDT Test Indication: PREOP Renetta CASE EKG ORD Performing Organization Address City/State/ZIP Code Phon e Number [facility] NOW [place], [place] Type and Screen (05/18/2022 6:29 AM CDT) [facility] gist Method Time Signature ABORH O Rh 05/18/2022 [facility] Negative 7:15 AM CDT LAB-CENTRAL LAB BLOOD BANK ANTIBODY Negative Negative 05/18/2022 [facility] SCREEN 7:15 AM CDT LAB-CENTRAL LAB BLOOD BANK SPECIMEN 05/21/22 05/18/2022 [facility] EXPIRATION 23:59 7:15 AM CDT LAB-CENTRAL DATE/TIME LAB BLOOD BANK Specimen Anatomical Collection Method / Collection Time Recei jerome Time (Source) Location / Volume Laterality Blood BLOOD SPECIMEN / Venipuncture / 05/18/2022 6:29 2021 6:38 Unknown Unknown AM CDT AM CDT Ren[facility] CASE BLOOD BANK Performing Organization Address City/State/ZIP Code Phon e Number [facility] LAB-CENTRAL LAB [address] [place] [address] 5 [phone] BLOOD BANK NUCLEATED RED BLOOD CELLS PERCENT OF BLOOD LEUKOCYTES (05/18/2022 6:29 AM CDT) P athologist Signature NRBC 0.0 % 05/18/2022 [facility] 6:46 AM CDT LABORATORY-CENTR AL LABORATORY ABS NRBC 0.0 thou /cu mm 05/18/2022 [facility] 6:46 AM CDT LABORATORY-CENTR AL LABORATORY Specimen Anatomical Collection Method / Collection Time Recei jerome Time (Source) Location / Volume Laterality Blood BLOOD SPECIMEN / Venipuncture / 05/18/2022 6:29 2021 6:39 Unknown Unknown AM CDT AM CDT Ren[facility] CASE LABORATORY Performing Organization Address City/State/ZIP Code Phon e Number [facility] [address] [place] [address] LABORATORY-CENTRAL 2000 LABORATORY (ABNORMAL) CBC with Platelet no Diff (05/18/2022 6:29 AM CDT) Patholo gist Method Time Signature WHITE BLOOD 5.4 4.5 - 11.0 05/18/2022 [facility] COUNT thou/cu mm 6:46 AM CDT LABORATORY-CAREY TRAL LABORATORY RED BLOOD COUNT 4.04 (L) 4.30 - 05/18/2022 [facility] 5.90 6:46 AM CDT LABORATORY-CAREY mil/cu mm TRAL LABORATORY HEMOGLOBIN 12.8 (L) 13.5 - 05/18/2022 [facility] 17.5 g/dL 6:46 AM CDT LABORATORY-CAREY TRAL LABORATORY HEMATOCRIT 37.0 37.0 - 05/18/2022 [facility] 53.0 % 6:46 AM CDT LABORATORY-CAREY TRAL LABORATORY MCV 92 80 - 100 05/18/2022 [facility] fL 6:46 AM CDT LABORATORY-CAREY TRAL LABORATORY MCH 31.7 26.0 - 05/18/2022 [facility] 34.0 pg 6:46 AM CDT LABORATORY-CAREY TRAL LABORATORY MCHC 34.6 32.0 - 05/18/2022 [facility] [employer] 36.0 g/dL 6:46 AM CDT LABORATORY-CAREY TRAL LABORATORY RDW 12.0 11.5 - 05/18/2022 [facility] 15.5 % 6:46 AM CDT LABORATORY-CAREY TRAL LABORATORY PLATELET COUNT 246 140 - 440 05/18/2022 [facility] thou/cu mm 6:46 AM CDT LABORATORY-CAREY TRAL LABORATORY MPV 8.8 6.5 - 11.0 05/18/2022 [facility] fL 6:46 AM CDT LABORATORY-CAREY TRAL LABORATORY Specimen Anatomical Collection Method / Collection Time Recei jerome Time (Source) Location / Volume Laterality Blood BLOOD SPECIMEN / Venipuncture / 05/18/2022 6:29 2021 6:39 Unknown Unknown AM CDT AM CDT Renetta CASE HEMATOLOGY Performing Organization Address City/State/ZIP Code Phon e Number [facility] [address] [place] [address] LABORATORY-CENTRAL 2000 LABORATORY (ABNORMAL) Basic Metabolic Panel (05/18/2022 6:29 AM CDT) Analysis Performed At Patho logist Time Signature SODIUM 133 (L) 135 - 145 05/18/2022 [facility] mmol/L 7:05 AM CDT LABORATORY-CAREY TRAL LABORATORY POTASSIUM 4.1 3.5 - 5.0 05/18/2022 [facility] mmol/L 7:05 AM CDT LABORATORY-CAREY TRAL LABORATORY CHLORIDE 100 98 - 110 05/18/2022 [facility] mmol/L 7:05 AM CDT LABORATORY-CAREY TRAL LABORATORY CO2,TOTAL 23 21 - 31 05/18/2022 [facility] mmol/L 7:05 AM CDT LABORATORY-CAREY TRAL LABORATORY ANION GAP 10 5 - 18 05/18/2022 [facility] 7:05 AM CDT LABORATORY-CAREY TRAL LABORATORY GLUCOSE 107 (H) 65 - 100 05/18/2022 [facility] mg/dL 7:05 AM CDT LABORATORY-CAREY TRAL LABORATORY CALCIUM 9.5 8.5 - 10.5 05/18/2022 [facility] mg/dL 7:05 AM CDT LABORATORY-CAREY TRAL LABORATORY BUN 13 8 - 25 05/18/2022 [facility] mg/dL 7:05 AM CDT LABORATORY-CAREY TRAL LABORATORY CREATININE 0.82 0.72 - 05/18/2022 [facility] 1.25 mg/dL 7:05 AM CDT LABORATORY-CAREY TRAL LABORATORY BUN/CREAT RATIO 16 10 - 20 05/18/2022 [facility] [employer] 7:05 AM CDT LABORATORY-CAREY TRAL LABORATORY eGFR >90 >90 05/18/2022 [facility] [employer] mL/min/1.7 7:05 AM CDT LABORATORY-CAREY 3m2 TRAL LABORATORY Comment: As of 2022, eGFR is calcu lated by the CKD-EPI creatinine equation without race adjustment. eGFR can be inf luenced by muscle mass, exercise, and diet. The reported eGFR is an estimation only and is only applicable if the renal function is stable. Specimen Anatomical Collection Method / Collection Time Recei jerome Time (Source) Location / Volume Laterality Blood BLOOD SPECIMEN / Venipuncture / 05/18/2022 6:29 2021 6:38 Unknown Unknown AM CDT AM CDT Renetta CASE CHEMISTRY Performing Organization Address City/State/ZIP Code Phon e Number [facility] [address] [place] [address] LABORATORY-CENTRAL 2000 LABORATORY SCAN-CARDIAC STRIP (05/18/2022 12:00 AM CDT) Narrative 05/18/2022 12:00 AM CDT This result has an attachment that is no t available. Ordered by an unspecified provider. Other Clinical Staff OTHER SCAN-OPERATIVE/PROCEDURE REPORT (05/18/2022 12:00 AM CDT) Narrative 05/18/2022 12:00 AM CDT This result has an attachment that is no t available. Ordered by an unspecified provider. Other Clinical Staff OTHER from Last 3 Months Advance Directives Documents on File Type Date Recorded Patient Corporate Legal Assistant Explanati on Healthcare Directive 06/09/2012 06/09/2012 Latest Code Status on File Code Status Date Activated Date Inactivated Comments Full Code 05/18/2022 6:06 AM 05/20/2022 7:34 PM Code Status Discussion: Unable to Assess Preferences, Provid er to review later Full Code 03/02/2022 2:07 PM 03/04/2022 3:44 PM Code Status Discussion: Reviewed Preferences Full Code 03/02/2022 2:07 PM 03/02/2022 2:07 PM Code Status Discussion: Reviewed Preferences Full Code 01/13/2022 12:06 PM 01/14/2022 4:47 PM Code Status Discussion: Unable to Assess Preferences, Provid er to review later Care Teams Sales Program Manager Relationship Specialty Start Date End Date Flako Pierre MD PCP - General Internal Medicine 12/10/211999 [place] [address]
--- OUTSIDE RECORDS SUMMARY | 2022-08-04 14:30 | XMS_ITS | Encounter Summary ---
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 [facility] Procedures Cardiac Rehab Program [address], [address] [place], [place] [address] Referral ID Status Reason Start Date Expiration Date Visits V isits Requested Authorized [id number] Authorized 03/12/2022 03/12/2023 36 36 Reason for Visit Outpatient (Routine) - Authorized Specialty Diagnoses / Procedures Referred By Contact Refer red To Contact Diagnoses Coronary Artery Disease With Stable Angina (With Other Forms Angina Pectoris) ([facility]) Ben[facility]. [facility] [place] [facility] Procedures Cardiac Rehab Program [address], [address] [place], [place] [address] Referral ID Status Reason Start Date Expiration Date Visits V isits Requested Authorized [id number] Authorized 03/12/2022 03/12/2023 36 36 Encounter Details Date Type Department Care Team Description 07/21/2022 Hospital Encounter Department of Cardiac Benja Fry Coronary Artery Rehabilitation ashlee Palomo M.D. Disease With Stable [place], [facility] travel cota [address], Angina (With Other [address] [place] [address] [address] Forms Angina [place], [place], Pectoris) ( [facility]) [address] [place] [address] [phone] Social History Tobacco Use Types Packs/Day Years [...] Disease Benja Fry M.D. [address] [facility] [address] [place] [address] (Wo rk) Scheduled Orders Name Type Priority Associated Diagnoses Order S chedule Cardiac Rehab Card Rehab Routine Coronary Artery Once for 1 Occurrences Program Disease With Stable starting 07/21/2022 Angina (With Other until Forms Angina Pectoris) ([facility]) documented as of this encounter Visit Diagnoses Diagnosis Coronary Artery Disease With Stable Vivienne na (With Other Forms Angina Pectoris) ([facility]) documented in this encounter Additional Health Concerns Assessment Noted Time PHQ-9 Depression Total Score: 6 03/16/2022 9:52 AM CDT documented as of this encounter
--- OUTSIDE RECORDS SUMMARY | 2022-08-04 14:30 | XMS_ITS | Encounter Summary ---
:1955 Author Organization [facility] Address [address] [place] [address] Care Team Providers Name Role Phone Unavailable Primary Care Provider Unavailable Reason for Visit Reason Comments Scheduling Encounter Details Date Type Department Care Team Description 06/25/2022 Clinical Communication Department of Cardiac [place], Scheduling Rehabilitation in [address] [phone] Social History Tobacco Use Types Packs/Day Years Used Date Smoking Tobacco: Never Assessed Sex Assigned at Date Recorded Not on file documented as of this encounter Plan of Treatment Upcoming Encounters Date Type Specialty Care Team Description 08/06/2022 Appointment Cardiovascular Disease Benja Fry M.D. [address] [place] [address] (Wo rk) documented as of this encounter Visit Diagnoses Not on filedocumented in this encounter Additional Health Concerns Assessment Noted Time PHQ-9 Depression Total Score: 6 03/16/2022 9:52 AM CDT documented as of this encounter
--- OUTSIDE RECORDS SUMMARY | 2022-08-04 14:30 | XMS_ITS | Encounter Summary ---
:1955 Author Organization [facility] Address [address] [place] [address] Care Team Providers Name Role Phone Unavailable Primary Care Provider Unavailable Reason for Referral Outpatient (Routine) - Authorized Specialty Diagnoses / Procedures Referred By Contact Refer red To Contact Diagnoses Coronary Artery Disease With Stable Angina (With Other Forms Angina Pectoris) ([facility]) Benja Fry M.D. [facility] Procedures Cardiac Rehab Program [address], [address] [place], [place] [address] Referral ID Status Reason Start Date Expiration Date Visits V isits Requested Authorized [id number] Authorized 03/12/2022 03/12/2023 36 36 Reason for Visit Outpatient (Routine) - Authorized Specialty Diagnoses / Procedures Referred By Contact Refer red To Contact Diagnoses Coronary Artery Disease With Stable Angina (With Other Forms Angina Pectoris) ([facility]) Benja Fry M.D. [facility] [place] [facility] Procedures Cardiac Rehab Program [address], [address] [place], [place] [address] Referral ID Status Reason Start Date Expiration Date Visits V isits Requested Authorized [id number] Authorized 03/12/2022 03/12/2023 36 36 Encounter Details Date Type Department Care Team Description 08/04/2022 Hospital Encounter Department of Cardiac Benja Fry Coronary Artery Rehabilitation ashlee Palomo M.D. 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 [address] [facility] [address] [place] [address] (Wo rk) Scheduled Orders Name Type Priority Associated Diagnoses Order S chedule Cardiac Rehab Card Rehab Routine Coronary Artery Once for 1 Occurrences Program Disease With Stable starting 08/04/2022 Angina (With Other until Forms Angina Pectoris) ([facility]) documented as of this encounter Visit Diagnoses Diagnosis Coronary Artery Disease With Stable Vivienne na (With Other Forms Angina Pectoris) ([facility]) documented in this encounter Additional Health Concerns Assessment Noted Time PHQ-9 Depression Total Score: 6 03/16/2022 9:52 AM CDT documented as of this encounter
--- OUTSIDE RECORDS SUMMARY | 2022-08-04 14:30 | XMS_ITS | Encounter Summary ---
:1955 Author Organization [facility] Address [address] [place] [address] Care Team Providers Name Role Phone Unavailable Primary Care Provider Unavailable Reason for Referral Outpatient (Routine) - Authorized Specialty Diagnoses / Procedures Referred By Contact Refer red To Contact Diagnoses Coronary Artery Disease With Stable Angina (With Other Forms Angina Pectoris) ([facility]) Benja Fry M.D. [facility] Procedures Cardiac Rehab Program [address] [place], [place] [address] Referral ID Status Reason Start Date Expiration Date Visits V isits Requested Authorized [id number] Authorized 03/12/2022 03/12/2023 36 36 Reason for Visit Outpatient (Routine) - Authorized Specialty Diagnoses / Procedures Referred By Contact Refer red To Contact Diagnoses Coronary Artery Disease With Stable Angina (With Other Forms Angina Pectoris) ([facility]) [facility]ja [facility]. [facility] Procedures Cardiac Rehab Program [address], [address] [place], [place] [address] Referral ID Status Reason Start Date Expiration Date Visits V isits Requested Authorized [id number] Authorized 03/12/2022 03/12/2023 36 36 Encounter Details Date Type Department Care Team Description 07/16/2022 Hospital Encounter Department of Cardiac Benja Fry Coronary Artery Rehabilitation ashlee Palomo M.D. 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 [address] [facility] [address] [place] [address] (Wo rk) Scheduled Orders Name Type Priority Associated Diagnoses Order S chedule Cardiac Rehab Card Rehab Routine Coronary Artery Once for 1 Occurrences Program Disease With Stable starting 07/16/2022 Angina (With Other until 07/2022 Forms Angina Pectoris) ([facility]) documented as of this encounter Visit Diagnoses Diagnosis Coronary Artery Disease With Stable Vivienne na (With Other Forms Angina Pectoris) ([facility]) documented in this encounter Additional Health Concerns Assessment Noted Time PHQ-9 Depression Total Score: 6 03/16/2022 9:52 AM CDT documented as of this encounter
--- OUTSIDE RECORDS SUMMARY | 2022-08-04 14:30 | XMS_ITS | Encounter Summary ---
:1955 Author Organization [facility] Address [address] [place] [address] Care Team Providers Name Role Phone Unavailable Primary Care Provider Unavailable Reason for Referral Outpatient (Routine) - Authorized Specialty Diagnoses / Procedures Referred By Contact Refer red To Contact Diagnoses Coronary Artery Disease With Stable Angina (With Other Forms Angina Pectoris) ([facility]) Benja Fry M.D. [facility] Procedures Cardiac Rehab Program [address], [address] [place], [place] [address] Referral ID Status Reason Start Date Expiration Date Visits V isits Requested Authorized [id number] Authorized 03/12/2022 03/12/2023 36 36 Reason for Visit Outpatient (Routine) - Authorized Specialty Diagnoses / Procedures Referred By Contact Refer red To Contact Diagnoses Coronary Artery Disease With Stable Angina (With Other Forms Angina Pectoris) ([facility]) Benja Fry M.D. [facility] Region Procedures Cardiac Rehab Program [address], [address] [place], [place] [address] Referral ID Status Reason Start Date Expiration Date Visits V isits Requested Authorized [id number] Authorized 03/12/2022 03/12/2023 36 36 Encounter Details Date Type Department Care Team Description 06/18/2022 Hospital Encounter Department of Cardiac Benja Fry Coronary Artery Rehabilitation ashlee Palomo M.D. 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 [address] [facility] [address] [place] [address] (Wo rk) Scheduled Orders Name Type Priority Associated Diagnoses Order S chedule Cardiac Rehab Card Rehab Routine Coronary Artery Once for 1 Occurrences Program Disease With Stable starting 06/18/2022 Angina (With Other until 10/2022 Forms Angina Pectoris) ([facility]) documented as of this encounter Visit Diagnoses Diagnosis Coronary Artery Disease With Stable Vivienne na (With Other Forms Angina Pectoris) ([facility]) documented in this encounter Additional Health Concerns Assessment Noted Time PHQ-9 Depression Total Score: 6 03/16/2022 9:52 AM CDT documented as of this encounter
--- OUTSIDE RECORDS SUMMARY | 2022-08-04 14:30 | XMS_ITS | Encounter Summary ---
:1955 Author Organization [facility] Address [address] [place] [address] Care Team Providers Name Role Phone Unavailable Primary Care Provider Unavailable Reason for Referral Outpatient (Routine) - Authorized Specialty Diagnoses / Procedures Referred By Contact Refer red To Contact Diagnoses Coronary Artery Disease With Stable Angina (With Other Forms Angina Pectoris) ([facility]) Benja Fry M.D. [facility] Procedures Cardiac Rehab Program [address], [address] [place], [place] [address] Referral ID Status Reason Start Date Expiration Date Visits V isits Requested Authorized [id number] Authorized 03/12/2022 03/12/2023 36 36 Reason for Visit Outpatient (Routine) - Authorized Specialty Diagnoses / Procedures Referred By Contact Refer red To Contact Diagnoses Coronary Artery Disease With Stable Angina (With Other Forms Angina Pectoris) ([facility]) Benja Fry M.D. [facility] Region Procedures Cardiac Rehab Program [address], [address] [place], [place] [address] Referral ID Status Reason Start Date Expiration Date Visits V isits Requested Authorized [id number] Authorized 03/12/2022 03/12/2023 36 36 Encounter Details Date Type Department Care Team Description 08/02/2022 Hospital Encounter Department of Cardiac Benja Fry Coronary Artery Rehabilitation ashlee Palomo M.D. 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) [address] [place] [address] [phone] Social History Tobacco Use Types Packs/Day Years [...] Benja Fry M.D. [address] [facility] [address] [place] [address] (Wo rk) Scheduled Orders Name Type Priority Associated Diagnoses Order S chedule Cardiac Rehab Card Rehab Routine Coronary Artery Once for 1 Occurrences Program Disease With Stable starting 08/02/2022 Angina (With Other until Forms Angina Pectoris) ([facility]) documented as of this encounter Visit Diagnoses Diagnosis Coronary Artery Disease With Stable Vivienne na (With Other Forms Angina Pectoris) ([facility]) documented in this encounter Additional Health Concerns Assessment Noted Time PHQ-9 Depression Total Score: 6 03/16/2022 9:52 AM CDT documented as of this encounter
--- OUTSIDE RECORDS SUMMARY | 2022-08-04 14:30 | XMS_ITS | Encounter Summary ---
:1955 Author Organization [facility] Address [address] [place] [address] Care Team Providers Name Role Phone Unavailable Primary Care Provider Unavailable Reason for Referral Outpatient (Routine) - Authorized Specialty Diagnoses / Procedures Referred By Contact Refer red To Contact Diagnoses Coronary Artery Disease With Stable Angina (With Other Forms Angina Pectoris) ([facility]) Benja Fry M.D. [facility] Procedures Cardiac Rehab Program [address], [address] [place], [place] [address] Referral ID Status Reason Start Date Expiration Date Visits V isits Requested Authorized [id number] Authorized 03/12/2022 03/12/2023 36 36 Reason for Visit Outpatient (Routine) - Authorized Specialty Diagnoses / Procedures Referred By Contact Refer red To Contact Diagnoses Coronary Artery Disease With Stable Angina (With Other Forms Angina Pectoris) ([facility]) Benja [facility]. [facility] Region Procedures Cardiac Rehab Program [address], [address] [place], [place] [address] Referral ID Status Reason Start Date Expiration Date Visits V isits Requested Authorized [id number] Authorized 03/12/2022 03/12/2023 36 36 Encounter Details Date Type Department Care Team Description 07/28/2022 Hospital Encounter Department of Cardiac Benja Fry Coronary Artery Rehabilitation ashlee Palomo M.D. 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 [address] [facility] [address] [place] [address] (Wo rk) Scheduled Orders Name Type Priority Associated Diagnoses Order S chedule Cardiac Rehab Card Rehab Routine Coronary Artery Once for 1 Occurrences Program Disease With Stable starting 07/28/2022 Angina (With Other until Forms Angina Pectoris) ([facility]) documented as of this encounter Visit Diagnoses Diagnosis Coronary Artery Disease With Stable Vivienne na (With Other Forms Angina Pectoris) ([facility]) documented in this encounter Additional Health Concerns Assessment Noted Time PHQ-9 Depression Total Score: 6 03/16/2022 9:52 AM CDT documented as of this encounter
--- OUTSIDE RECORDS SUMMARY | 2022-08-04 14:30 | XMS_ITS | Encounter Summary ---
:1955 Author Organization [facility] Address [address] [place] [address] Care Team Providers Name Role Phone Unavailable Primary Care Provider Unavailable Reason for Referral Outpatient (Routine) - Authorized Specialty Diagnoses / Procedures Referred By Contact Refer red To Contact Diagnoses Coronary Artery Disease With Stable Angina (With Other Forms Angina Pectoris) ([facility]) Benja Fry M.D. [facility] Procedures Cardiac Rehab Program [address], [address] [place], [place] [address] Referral ID Status Reason Start Date Expiration Date Visits V isits Requested Authorized [id number] Authorized 03/12/2022 03/12/2023 36 36 Reason for Visit Outpatient (Routine) - Authorized Specialty Diagnoses / Procedures Referred By Contact Refer red To Contact Diagnoses Coronary Artery Disease With Stable Angina (With Other Forms Angina Pectoris) ([facility]) Benja Fry M.[facility]. [facility] Region Procedures Cardiac Rehab Program [address], [address] [place], [place] [address] Referral ID Status Reason Start Date Expiration Date Visits V isits Requested Authorized [id number] Authorized 03/12/2022 03/12/2023 36 36 Encounter Details Date Type Department Care Team Description 07/19/2022 Hospital Encounter Department of Cardiac Benja Fry Coronary Artery Rehabilitation ashlee Palomo M.D. 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 [address] [facility] [address] [place] [address] (Wo rk) Scheduled Orders Name Type Priority Associated Diagnoses Order S chedule Cardiac Rehab Card Rehab Routine Coronary Artery Once for 1 Occurrences Program Disease With Stable starting 07/19/2022 Angina (With Other until 10/2022 Forms Angina Pectoris) ([facility]) documented as of this encounter Visit Diagnoses Diagnosis Coronary Artery Disease With Stable Vivienne na (With Other Forms Angina Pectoris) ([facility]) documented in this encounter Additional Health Concerns Assessment Noted Time PHQ-9 Depression Total Score: 6 03/16/2022 9:52 AM CDT documented as of this encounter
--- OUTSIDE RECORDS SUMMARY | 2022-08-04 14:30 | XMS_ITS | Encounter Summary ---
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 [facility] Region Procedures Cardiac Rehab Program [address], [address] [place], [place] [address] Referral ID Status Reason Start Date Expiration Date Visits V isits Requested Authorized [id number] Authorized 03/12/2022 03/12/2023 36 36 Encounter Details Date Type Department Care Team Description 07/26/2022 Hospital Encounter Department of Cardiac Benja Fry Coronary Artery Rehabilitation ashlee Palomo M.D. Disease With Stable [place], [facility] deejay [address], Angina (With Other [address] [place] [address] [address] Forms Angina [place], [place], Pectoris) ( [facility]) [id number] [place] [address] [phone] Social History Tobacco Use Types Packs/Day Years [...] encounter Progress Notes Chau Sow CCRP - 07/26/2022 8:00 AM CDT Cardiac Rehab Individualized Treatment Plan (ITP) Mr. Chowdary (66 y.o., : 1955) was referred to the [facility] Cardiac Rehab Program and has completed 26 sessions. Medical Record Number (MRN): [id number] Encounter Date: 07/26/2022 PCP: No primary care provider on file. Referring Provider and Musical Instrument Supervisor 03/16/[address] Yohan Gannon Prescribed Sessions 36 Program Information 03/16/2022 Program Type CR Phase II - Center Based Referral Date 03/03/2022 Primary Diagnosis PCI Date 03/02/2022 Secondary Diagnosis PCI PCI Date 01/13/2022 Enrollment Date 03/16/2022 Risks 03/16/2022 AACVPR Risk Low ECHO Date 03/03/2022 Ejection Fraction (EF) % 66 % Symptoms: Symptoms 03/16/2022 06/01/2022 06/29/2022 08/03/2022 Charting Type Initial Assessment Reassessment Reassessment Reassessment Kenny Dyspnea 2 - Slight 2 - Slight 2 - Slight 2 - Slight Cardiovascular Symptoms Claudication;Fatigue;Shortness of Breath;Lightheadedness Claudication;Shortness of Breath;Lightheadedness;Fatigue Claudication;Shortness of Breath;Fatigue;Lightheadedness Claudication;Shortness of Breath;Fatigue;Lightheadedness Claudication Scale 4 - Moderate Claudication (significant, but able to keep walking) 3 - Mild Claudication (easily forgot about) 2 - Onset of Claudication Pain 2 - Onset of Claudication Pain Generalized Edema None None None None Right Lower Extremity Edema None None None None Left Lower Extremity Edema None None None None Circulation Edema No No No No Edema Severity None None None None Comments - PAD was diagnosed and procedure completed early May; some leg pain is still noted but heis able to walk further without the need to stop PAD sx have improved; able to walk further without the need for rest - Exercise Assessment Vital Signs 03/16/2022 06/01/2022 06/29/2022 08/03/2022 Source ECG ECG ECG ECG Heart Rate 72 103 81 80 Source Pulse oximetry Pulse oximetry Pulse oximetry Pulse oximetry Cardiac Rhythm SR;SB SR SR;SB SR;SB Ectopy PVCs PVCs PVCs PVCs Ectopy Frequency Rare Rare Rare Rare Six Minute Walk Test (6MWT) 03/16/2022 Total Distance Walked (Meters) 228.6 Estimated METs 2.19 % OF PREDICTED DISTANCE 42.83 % Comments stood and stopped; did not sit; needed to due to claudication discomfort that went away with stopping DASI Calculations 03/16/2022 Estimated V02 Peak 23.12 Estimated MET Level 6.61 IPAQ 03/16/2022 MET-mins/week 278 Exercise Session 03/16/2022 06/01/2022 06/29/2022 08/03/2022 Session # 1 5 16 26 Peak METs 2.1 2.5 2.5 2.23 Assessment 03/16/2022 06/01/2022 06/29/2022 08/03/2022 Exercise Stage of Change Preparation Action Action Action Assistive Device None None None None Do you exercise routinely? No No No No Do you perform strength training? No No No No Exercise Limitations Yes Yes Yes Yes Limitation Description claudication like sx limit walking progression - - - Action Taken will take rest breaks as needed PAD procedure completed; able to walk on TM with no rest breaks - - Fall Risk Assessment 03/16/2022 Have you [...] Exercise Plan Exercise Prescription 03/16/2022 06/01/2022 06/29/2022 08/03/2022 Frequency 3-5 sessions per week 3-5 sessions per week 3-5 sessions per week 3-5 sessions per week Intensity Work at a level that is comfortable but also challenging Work at a level that is comfortable but also challenging Work at a level that is comfortable but also challenging Work at a level thatis comfortable but also challenging Target heart rate (pulse): 100-110 100-110 100-110 100-110 Rating of Perceived Exertion range (RPE): 11-14 11-14 11-14 11-14 Rating of Perceived Dyspnea (Kenny Dyspnea): -01/14-01/14-01/14-01/14 METS: 2.1-3.1 2.5-3.5 2.5-3.5 2.5-3.5 Maintain SpO2 at this percentage: 97 97 97 97 Treadmill Speed: 1.5 1.6 1.6 1.6 Treadmill Grade: 0 0 0 0 Duration Warm-up minutes;Aerobic exercise minutes;Increase 1-5 minutes each session, as tolerated Warm-up minutes;Aerobic exercise minutes;Increase 1-5 minutes each session, as tolerated Warm-up minutes;Aerobic exercise minutes;Increase 1-5 minutes each session, as tolerated Warm-up minutes;Aerobic exercise minutes;Increase 1-5 minutes each session, as tolerated Warm Up Minutes: 2-3 2-3 2-3 2-3 Aerobic exercise minutes: 30 45 45 45 Cool Down minutes: 2-3 2-3 2-3 2-3 Gradually progress to this many minutes per week: 150 150 150 150 Goal minutes: 55 55 55 55 Type Arm Ergometer;Recumbent stepper (with or without arms);Walk indoors;Walk outdoors;Walk treadmill Arm Ergometer;Recumbent stepper (with or without arms);Walk indoors;Walk outdoors;Walk treadmill Arm Ergometer;Recumbent stepper (with or without arms);Walk indoors;Walk outdoors;Walk treadmill Arm Erg ometer;Recumbent stepper (with or without arms);Walk indoors;Walk outdoors;Walk treadmill Interval Training Moderate intensity interval training Moderate intensity interval training Moderateintensity interval training Moderate intensity interval training Progression Use RPE to guide when to increase work level intensity and duration Use RPE to guide when to increase work level intensity and duration Use RPE to guide when to increase work level intensity and duration Use RPE to guide when to increase work level intensity and duration Increase continuous exercise to this many minutes: 55 55 55 55 Increase by this many METS: 3.5 3.5 3.5 3.5 Flexibility and Balance Stretch major muscle groups daily Stretch major muscle groups daily Stretch major muscle groups daily Stretch major muscle groups daily Strength Training Calisthenics Calisthenics Calisthenics Calisthenics Reps: 10 10 10 10 Sets: 1 1 1 1 Other Exercise Avoid prolonged sitting;Gardening/Yardwork/Housework;Farm Chores;Pedometer: 2,500 steps per day above baseline;Play with children;Take the stairs;Walk for transportation;Walk on work breaks Avoid prolonged sitting;Gardening/Yardwork/Housework;Farm Chores;Pedometer: 2,500 steps per day above baseline;Take the stairs;Walk for transportation Avoid prolonged sitting;Gardening/Yardwork/Housework;Farm Chores;Pedometer: 2,500 steps per day above baseline;Take the stairs;Walk for transportation Avoid prolonged sitting;Gardening/Yardwork/Housework;Farm Chores;Pedometer: 2,500 steps per day above baseline;Shopping;Take the stairs;Walk for transportation Plan 03/16/2022 06/01/2022 06/29/2022 08/03/2022 Charting Type Initial Assessment Reassessment Reassessment Reassessment Goals Compliance to on-site program;Compliance to home program;Return to work / community service;Target MET level (Comment);Improve exercise tolerance Compliance to on-site program;Compliance to home program;Return to work / community service;Target MET level (Comment);Improve exercise tolerance Compl iance to on-site program;Compliance to home program;Return to work / community service;Target MET level (Comment);Improve exercise tolerance Compliance to on- site program;Compliance to home program;Return to work / [...] Toward Goals 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; 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 but is able to get things done 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; 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sx but is able to get things done 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; 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 but is able to get things done 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; 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 but is able to get things done Activity Education ACTIVITY LOG [id number];EXERCISE AND PHYSICAL ACTIVITY GUIDELINES FOR PEOPLE WITH HEART DISEASE VP7085-29;EXERCISE PROGRAM GUIDELINES [id number] ACTIVITY LOG [id number];EXERCISE AND PHYSICAL ACTIVITY GUIDELINES FOR PEOPLE WITH HEART DISEASE MU7540-89;EXERCISE PROGRAM GUIDELINES BL1070 ACTIVITY LOG [id number];EXERCISE AND PHYSICAL ACTIVITY GUIDELINES FOR PEOPLE WITH HEART DISEASE MG8831-76;EXERCISEPROGRAM GUIDELINES SR4794 ACTIVITY LOG FU9719;EXERCISE AND PHYSICAL ACTIVITY GUIDELINES FOR PEOPLE WITH HEART DISEASE GJ3746-27;EXERCISE PROGRAM GUIDELINES OC1578 Comments - PAD procedure in early May; able to walk on TM without the need for 3 rest breaks as it was prior to procedure no change PAD is not as limiting as it was before procedure; able to walk further distances without issue Nutrition Assessment Vital Signs 03/16/2022 06/01/2022 06/29/2022 08/03/2022 Height 172.7 cm 172.7 cm 172.7 cm 172.7 cm Weight 86.183 kg - - - BMI (Calculated) 28.9 - - - Assessment 03/16/2022 06/01/2022 06/29/2022 08/03/2022 Nutrition Stage of Change Maintenance Maintenance Maintenance Maintenance Dietary Recommendations Low Salt;Low Fat/ Low Cholesterol Low Salt;Low Fat/ Low Cholesterol Low Salt;Low Fat/ Low Cholesterol Low Salt;Low Fat/ Low Cholesterol Low Salt Amount 2000 mg 2000 mg 2000 mg 2000 mg Appetite Good Good Good Good Social History Substance and Sexual Activity Alcohol Use Not on file Nutrition Plan Plan 03/16/2022 06/01/2022 06/29/2022 08/03/2022 Charting Type Initial Assessment Reassessment Reassessment Reassessment Goals Increase fruit intake;Increase vegetable intake;Decrease overall portions;Compliance with dietary guidelines;Normalize appetite;Reduce saturated fat intake;Limit sodium intake Increase fruit intake;Increase vegetable intake;Decrease overall portions;Compliance with dietary guidelines;Normalize ap petite;Reduce saturated fat intake;Limit sodium intake Increase fruit intake;Increase vegetable intake;Decrease overall portions;Compliance with dietary guidelines;Normalize appetite;Reduce saturated fat intake;Limit sodium intake Increase fruit intake;Increase vegetable intake;Decrease overall portion s;Compliance with dietary guidelines;Normalize appetite;Reduce saturated fat intake;Limit sodium intake Goal Weight no goal weight set on initial session no goal weight set on initial session no goal weight set on initial session no goal weight set on initial session Modify weight by Decrease;Percent (%) Decrease;Percent (%) Decrease;Percent (%) Decrease;Percent (%) Percent (%) 5 % 5 % 5 % 5 % Interventions [...] Nutrition Education LOWERING HIGH CHOLESTEROL THROUGH DIET [id number];GRAPE CUTTER CONSULT/CLASS LOWERING HIGH CHOLESTEROL THROUGH DIET [id number];GRAPE CUTTER CONSULT/CLASS LOWERING HIGH CHOLESTEROL THROUGH DIET KF9267-42;GRAPE CUTTER CONSULT/CLASS LOWERING HIGH CHOLESTEROL THROUGH DIET DC1311-78;GRAPE CUTTER CONSU LT/CLASS Comments - no change no change no change Psychosocial Assessment PHQ-9 03/16/2022 Charting Type Initial Assessment PHQ-9 Score 6 Interpretation Mild depression [facility] 03/16/2022 Total Score 20 Assessment 03/16/2022 06/01/2022 06/29/2022 08/03/2022 Psychosocial Stage of Change Maintenance Maintenance Maintenance Maintenance Current Medication Therapy No No No No Support Systems Spouse;Significant other;Children;Family members - - - Patient Stress Factors Health changes Health changes Health changes Health changes Needs Expressed Denies Denies Denies Denies Psychosocial Plan Plan 03/16/2022 06/01/2022 06/29/2022 08/03/2022 Charting Type Initial Assessment Reassessment Reassessment Reassessment Goals Verbalize appropriate coping skills;Identify [...] activities;Identifies stressors;Normalize Sleep patterns;Verbalizerealistic health related expectations Verbalize appropriate coping skills;Identify a positive support system;Utilize support system;Improve PHQ-9 score;Return to leisure and social activities;Return tovocational activities;Identifies stressors;Normalize Sleep patterns;Verbalize realistic health related expectations Interventions Therapist Discussion;Patient declined [...] as it isnot on his diagnosis list pt is frustrated with PAD like sx that limit him; he plans to discuss treatment further with his PCP as it is not on his diagnosis list Psychosocial Education STRESS MANAGEMENT/RELAXATION TECHNIQUE CLASS STRESS MANAGEMENT/RELAXATION TECHNIQUE CLASS STRESS MANAGEMENT/RELAXATION TECHNIQUE CLASS STRESS MANAGEMENT/RELAXATION TECHNIQUE CLASS Comments - PAD sx improved no change PAD sx have improved greatly after recent procedure; no need torest on TM; able to do 20 min Other Core Components Hypertension Assessment Vital Signs 03/16/2022 06/01/2022 06/29/2022 08/03/2022 BP 130/68 116/74 146/78 120/66 BP Location Left arm;Upper Left arm;Upper Left arm;Upper Left arm;Upper Assessment 03/16/2022 06/01/2022 06/29/2022 08/03/2022 Hypertension Stage of Change Action Action Action Action History of Hypertension Yes Yes Yes Yes Current Medication Therapy Yes Yes Yes Yes Hypertension Plan Plan 03/16/2022 06/01/2022 06/29/2022 08/03/2022 Charting Type Initial Assessment Reassessment Reassessment Reassessment Goals Stable BP response;BP at [...] working on low salt diet pt is recentto BP medications; his BP is better now than before; tolerating medications well and working on low salt diet Hypertension Education BLOOD PRESSURE RECORD WALLET CARD [id number];HIGH BLOOD PRESSURE (HYPERTENSION) XL9172;MANAGING CHOLESTEROL SODIUM AND TRIGLYCERIDES PE3230-60 BLOOD PRESSURE RECORD WALLET CARD TM5566-47;HIGH BLOOD PRESSURE (HYPERTENSION) QE8719;MANAGING CHOLESTEROL SODIUM AND TRIGLYCERIDES LB5277-64 BLOOD PRESSURE RECORD WALLET CARD [id number];HIGH BLOOD PRESSURE (HYPERTENSION) UJ5855;MANAGING CHOLESTEROL SODIUM AND TRIGLYCERIDES NL6995-12 BLOOD PRESSURE RECORD WALLET CARD [id number];HIGH BLOOD PRESSURE (HYPERTENSION) TC4601;MANAGING CHOLESTEROL SODIUM AND TRIGLYCERIDES [id number] Comments - no change no change no change; BP WNL in CR Hyperlipidemia Assessment Assessment 03/16/2022 06/01/2022 06/29/2022 08/03/2022 History of Hyperlipidemia Yes Yes Yes Yes Current Medication Therapy Yes Yes Yes Yes Hyperlipidemia Stage of Change Maintenance Maintenance Maintenance Maintenance Lipids No lab values to display. Hyperlipidemia Plan Plan 03/16/2022 06/01/2022 06/29/2022 08/03/2022 Charting Type Initial Assessment Reassessment Reassessment Reassessment Goals Improve Lipids;Lipids in optimal range;Understand current Lipid profile Improve Lipids;Lipids in optimal range;Understand current Lipid profile Improve Lipids;Lipids in optimal range;Understand current Lipid profile Improve Lipids;Lipids in optimal range;Understand current Lipid profile Interventions Therapist Discussion;Collections Rep consult/class;Review lipid profile;Discussion on statins Therapist Discussion;Collections Rep consult/class;Review lipid profile;Discussion on statins Therapist Ashely borjas;Collections Rep consult/class;Review lipid profile;Discussion on statins Therapist Discussion;Collections Rep consult/class;Review lipid profile;Discussion on statins Progress Toward Goals tolerating statin well tolerating statin well tolerating statin well tolerating statin well Hyperlipidemia Education LOWERING HIGH CHOLESTEROL THROUGH DIET [id number] LOWERING HIGH CHOLESTEROL THROUGH DIET WH8593-73 LOWERING HIGH CHOLESTEROL THROUGH DIET UY1725-82 LOWERING HIGH CHOLESTEROL THROUGH DIET VU6093-69 Comments - no change no change no change Diabetes Assessment Lab Results None Diabetes Plan Plan 03/16/2022 06/01/2022 06/29/2022 08/03/2022 Charting Type Initial Assessment Reassessment Reassessment Reassessment Tobacco Assessment Smoking History/Assessment 03/16/2022 Smoking Status Former (greater than 6 months) Quit Date 11/15/2005 Smoking Types cigarettes Packs Per Day 1 Years 32 Assessment 03/16/2022 06/01/2022 06/29/2022 08/03/2022 Charting Type Initial Assessment Reassessment Reassessment Reassessment Tobacco Stage of Change Maintenance - - - Exposure to second hand smoke None Identified None Identified None Identified None Identified Social History Substance and Sexual Activity Drug Use Not on file Drug Abuse Screening Test (DAST) 03/16/2022 06/01/2022 06/29/2022 08/03/2022 How many times in the past year have you used a recreational drug or used a prescription medication for nonmedical reasons? Never Never Never Never Tobacco Plan Plan 03/16/2022 06/01/2022 06/29/2022 08/03/2022 Charting Type Initial Assessment Reassessment Reassessment Reassessment Progress Toward Goals has been smoke free since 2005 and it is going well - - - Heart Failure Assessment Assessment 03/16/2022 06/01/2022 06/29/2022 08/03/2022 Generalized Edema None None None None Right Lower Extremity Edema None None None None Left Lower Extremity Edema None None None None Circulation Edema No No No No Edema Severity None None None None Heart Failure Plan Plan 03/16/2022 06/01/2022 06/29/2022 08/03/2022 Charting Type Initial Assessment Reassessment Reassessment Reassessment Medication Compliance Assessment Assessment 03/16/2022 06/01/2022 06/29/2022 08/03/2022 Med Compliance Stage of Change Maintenance Maintenance Maintenance Maintenance Medication Compliance Plan Plan 03/16/2022 06/01/2022 06/29/2022 08/03/2022 Charting Type Initial Assessment Reassessment Reassessment Reassessment Goals Medication compliance;Knowledge of medication (Comment) Medication compliance;Knowledge of medication (Comment) Medication compliance;Knowledge of medication (Comment) Medication compliance;Knowledge of medication (Comment) Interventions Therapist Discussion;Medication review Therapist Discussion;Medication review Therapist Discussion;Medication review Therapist Discussion;Medication review Comments reviewed on initial session - - - Fletcher Education/Other Education: Medications were reviewed every visit. documented in this encounter Plan of Treatment Upcoming Encounters Date Type Specialty Care Team Description 08/06/2022 Appointment Cardiovascular Disease Benja Fry M.D. [address] [address] [place] [address] (Wo rk) Scheduled Orders Name Type Priority Associated Diagnoses Order S chedule Cardiac Rehab Card Rehab Routine Coronary Artery Once for 1 Occurrences Program Disease With Stable starting 07/26/2022 Angina (With Other until Forms Angina Pectoris) ([facility]) documented as of this encounter Visit Diagnoses Diagnosis Coronary Artery Disease With Stable Vivienne na (With Other Forms Angina Pectoris) ([facility]) documented in this encounter Additional Health Concerns Assessment Noted Time PHQ-9 Depression Total Score: 6 03/16/2022 9:52 AM CDT documented as of this encounter
--- OUTSIDE RECORDS SUMMARY | 2022-08-04 14:30 | XMS_ITS | Encounter Summary ---
:1955 Author Organization [facility] Address [address] [place] [address] Care Team Providers Name Role Phone Unavailable Primary Care Provider Unavailable Reason for Referral Outpatient (Routine) - Authorized Specialty Diagnoses / Procedures Referred By Contact Refer red To Contact Diagnoses Coronary Artery Disease With Stable Angina (With Other Forms Angina Pectoris) ([facility]) Benja Fry M.D. [facility] Procedures Cardiac Rehab Program [address], [address] [place], [place] [address] Referral ID Status Reason Start Date Expiration Date Visits V isits Requested Authorized [id number] Authorized 03/12/2022 03/12/2023 36 36 Reason for Visit Outpatient (Routine) - Authorized Specialty Diagnoses / Procedures Referred By Contact Refer red To Contact Diagnoses Coronary Artery Disease With Stable Angina (With Other Forms Angina Pectoris) ([facility]) Benja Fry M.D. [facility] Region Procedures Cardiac Rehab Program [address], [address] [place], [place] [address] Referral ID Status Reason Start Date Expiration Date Visits V isits Requested Authorized [id number] Authorized 03/12/2022 03/12/2023 36 36 Encounter Details Date Type Department Care Team Description 07/09/2022 Hospital Encounter Department of Cardiac Benja Fry Coronary Artery Rehabilitation ashlee Palomo M.D. Disease With Stable [place], [facility] deejay [address], Angina (With Other [address] [place] [address] [address] Forms Angina [place], [place], Pectoris) ( [facility]) [address] [place] [address] [phone] Social History Tobacco Use Types Packs/Day Years [...] [address] [facility] [address] [place] [address] (Wo rk) Scheduled Orders Name Type Priority Associated Diagnoses Order S chedule Cardiac Rehab Card Rehab Routine Coronary Artery Once for 1 Occurrences Program Disease With Stable starting 07/09/2022 Angina (With Other until 12/2021 Forms Angina Pectoris) ([facility]) documented as of this encounter Visit Diagnoses Diagnosis Coronary Artery Disease With Stable Vivienne na (With Other Forms Angina Pectoris) ([facility]) documented in this encounter Additional Health Concerns Assessment Noted Time PHQ-9 Depression Total Score: 6 03/16/2022 9:52 AM CDT documented as of this encounter
--- OUTSIDE RECORDS SUMMARY | 2022-08-04 14:30 | XMS_ITS | Encounter Summary ---
:1955 Author Organization [facility] Address [address] [place] [address] Care Team Providers Name Role Phone Unavailable Primary Care Provider Unavailable Reason for Referral Outpatient (Routine) - Authorized Specialty Diagnoses / Procedures Referred By Contact Refer red To Contact Diagnoses Coronary Artery Disease With Stable Angina (With Other Forms Angina Pectoris) ([facility]) Benja Fry M.D. [facility] Procedures Cardiac Rehab Program [address], [address] [place], [place] [address] Referral ID Status Reason Start Date Expiration Date Visits V isits Requested Authorized [id number] Authorized 03/12/2022 03/12/2023 36 36 Reason for Visit Outpatient (Routine) - Authorized Specialty Diagnoses / Procedures Referred By Contact Refer red To Contact Diagnoses Coronary Artery Disease With Stable Angina (With Other Forms Angina Pectoris) ([facility]) Benja Fry M.D. [facility] Procedures Cardiac Rehab Program [address], [address] [place], [place] [address] Referral ID Status Reason Start Date Expiration Date Visits V isits Requested Authorized [id number] Authorized 03/12/2022 03/12/2023 36 36 Encounter Details Date Type Department Care Team Description 07/14/2022 Hospital Encounter Department of Cardiac Benja Fry Coronary Artery Rehabilitation ashlee Palomo M.D. Disease With Stable [place], [facility] deejay [address], Angina (With Other [address] [place] [address] [address] Forms Angina [place], [place], Pectoris) ( [facility]) [address] [place] [address] [phone] Social History Tobacco Use Types Packs/Day Years [...] Disease Benja Fry M.D. [address] [facility] [address] [place] [address] (Wo rk) Scheduled Orders Name Type Priority Associated Diagnoses Order S chedule Cardiac Rehab Card Rehab Routine Coronary Artery Once for 1 Occurrences Program Disease With Stable starting 07/14/2022 Angina (With Other until 05/2022 Forms Angina Pectoris) ([facility]) documented as of this encounter Visit Diagnoses Diagnosis Coronary Artery Disease With Stable Vivienne na (With Other Forms Angina Pectoris) ([facility]) documented in this encounter Additional Health Concerns Assessment Noted Time PHQ-9 Depression Total Score: 6 03/16/2022 9:52 AM CDT documented as of this encounter
--- OUTSIDE RECORDS SUMMARY | 2022-08-04 14:30 | XMS_ITS | Encounter Summary ---
:1955 Author Organization [facility] Address [address] [place] [address] Care Team Providers Name Role Phone Unavailable Primary Care Provider Unavailable Reason for Referral Outpatient (Routine) - Authorized Specialty Diagnoses / Procedures Referred By Contact Refer red To Contact Diagnoses Coronary Artery Disease With Stable Angina (With Other Forms Angina Pectoris) ([facility]) Benja Fry M.D. [facility] Procedures Cardiac Rehab Program [address], [address] [place], [place] [address] Referral ID Status Reason Start Date Expiration Date Visits V isits Requested Authorized [id number] Authorized 03/12/2022 03/12/2023 36 36 Reason for Visit Outpatient (Routine) - Authorized Specialty Diagnoses / Procedures Referred By Contact Refer red To Contact Diagnoses Coronary Artery Disease With Stable Angina (With Other Forms Angina Pectoris) ([facility]) Benja Fry M.D. [facility] Region Procedures Cardiac Rehab Program [address], [address] [place], [place] [address] Referral ID Status Reason Start Date Expiration Date Visits V isits Requested Authorized [id number] Authorized 03/12/2022 03/12/2023 36 36 Encounter Details Date Type Department Care Team Description 07/05/2022 Hospital Encounter Department of Cardiac Benja Fry Coronary Artery Rehabilitation ashlee Palomo M.D. Disease With Stable [place], 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 [address] [facility] [address] [place] [address] (Wo rk) Scheduled Orders Name Type Priority Associated Diagnoses Order S chedule Cardiac Rehab Card Rehab Routine Coronary Artery Once for 1 Occurrences Program Disease With Stable starting 07/05/2022 Angina (With Other until Forms Angina Pectoris) ([facility]) documented as of this encounter Visit Diagnoses Diagnosis Coronary Artery Disease With Stable Vivienne na (With Other Forms Angina Pectoris) ([facility]) documented in this encounter Additional Health Concerns Assessment Noted Time PHQ-9 Depression Total Score: 6 03/16/2022 9:52 AM CDT documented as of this encounter
--- OUTSIDE RECORDS SUMMARY | 2022-08-04 14:31 | XMS_ITS | Encounter Summary ---
:1955 Author Organization [facility] Address [address] [place] [address] Care Team Providers Name Role Phone Unavailable Primary Care Provider Unavailable Reason for Referral Outpatient (Routine) - Authorized Specialty Diagnoses / Procedures Referred By Contact Refer red To Contact Diagnoses Coronary Artery Disease With Stable Angina (With Other Forms Angina Pectoris) ([facility]) Benja Fry M.D. [facility] Procedures Cardiac Rehab Program [address], [address] [place], [place] [address] Referral ID Status Reason Start Date Expiration Date Visits V isits Requested Authorized [id number] Authorized 03/12/2022 03/12/2023 36 36 Reason for Visit Outpatient (Routine) - Authorized Specialty Diagnoses / Procedures Referred By Contact Refer red To Contact Diagnoses Coronary Artery Disease With Stable Angina (With Other Forms Angina Pectoris) ([facility]) Benja Fry M.D. [facility] Region Procedures Cardiac Rehab Program [address], [address] [place], [place] [address] Referral ID Status Reason Start Date Expiration Date Visits V isits Requested Authorized [id number] Authorized 03/12/2022 03/12/2023 36 36 Encounter Details Date Type Department Care Team Description 06/04/2022 Hospital Encounter Department of Cardiac Benja Fry Coronary Artery Rehabilitation ashlee Palomo M.D. Disease With Stable [place], [facility] deejay [address], Angina (With Other [address] [place] [address] [address] Forms Angina [place], [place], Pectoris) ( [facility]) [address] [place] [address] [phone] Social History Tobacco Use Types Packs/Day Years [...] [address] [facility] [address] [place] [address] (Wo rk) Scheduled Orders Name Type Priority Associated Diagnoses Order S chedule Cardiac Rehab Card Rehab Routine Coronary Artery Once for 1 Occurrences Program Disease With Stable starting 06/04/2022 Angina (With Other until Forms Angina Pectoris) ([facility]) documented as of this encounter Visit Diagnoses Diagnosis Coronary Artery Disease With Stable Vivienne na (With Other Forms Angina Pectoris) ([facility]) documented in this encounter Additional Health Concerns Assessment Noted Time PHQ-9 Depression Total Score: 6 03/16/2022 9:52 AM CDT documented as of this encounter
--- OUTSIDE RECORDS SUMMARY | 2022-08-04 14:31 | XMS_ITS | Encounter Summary ---
:1955 Author Organization [facility] Address [address] [place] [address] Care Team Providers Name Role Phone Unavailable Primary Care Provider Unavailable Reason for Referral Outpatient (Routine) - Authorized Specialty Diagnoses / Procedures Referred By Contact Refer red To Contact Diagnoses Coronary Artery Disease With Stable Angina (With Other Forms Angina Pectoris) ([facility]) Benja Fry M.D. [facility] Procedures Cardiac Rehab Program [address], [address] [place], [place] [address] Referral ID Status Reason Start Date Expiration Date Visits V isits Requested Authorized [id number] Authorized 03/12/2022 03/12/2023 36 36 Reason for Visit Outpatient (Routine) - Authorized Specialty Diagnoses / Procedures Referred By Contact Refer red To Contact Diagnoses Coronary Artery Disease With Stable Angina (With Other Forms Angina Pectoris) ([facility]) Benja Fry M.D. [facility] Region Procedures Cardiac Rehab Program [address], [address] [place], [place] [address] Referral ID Status Reason Start Date Expiration Date Visits V isits Requested Authorized [id number] Authorized 03/12/2022 03/12/2023 36 36 Encounter Details Date Type Department Care Team Description 05/26/2022 Hospital Encounter Department of Cardiac Benja Fry Coronary Artery Rehabilitation ashlee Palomo M.D. Disease With Stable [place], [facility] deejay [address], Angina (With Other [address] [place] [address] [address] Forms Angina [place], [place], Pectoris) ( [facility]) [address] [place] [address] [phone] Social History Tobacco Use Types Packs/Day Years [...] Disease Benja Fry M.D. [address] [facility] [address] [place] [address] (Wo rk) Scheduled Orders Name Type Priority Associated Diagnoses Order S chedule Cardiac Rehab Card Rehab Routine Coronary Artery Once for 1 Occurrences Program Disease With Stable starting 05/26/2022 Angina (With Other until Forms Angina Pectoris) ([facility]) documented as of this encounter Visit Diagnoses Diagnosis Coronary Artery Disease With Stable Vivienne na (With Other Forms Angina Pectoris) ([facility]) documented in this encounter Additional Health Concerns Assessment Noted Time PHQ-9 Depression Total Score: 6 03/16/2022 9:52 AM CDT documented as of this encounter
--- OUTSIDE RECORDS SUMMARY | 2022-08-04 14:31 | XMS_ITS | Encounter Summary ---
:1955 Author Organization [facility] Address [address] [place] [address] Care Team Providers Name Role Phone Unavailable Primary Care Provider Unavailable Reason for Referral Outpatient (Routine) - Authorized Specialty Diagnoses / Procedures Referred By Contact Refer red To Contact Diagnoses Coronary Artery Disease With Stable Angina (With Other Forms Angina Pectoris) ([facility]) Benja Fry M.D. [facility] Procedures Cardiac Rehab Program [address], [address] [place], [place] [address] Referral ID Status Reason Start Date Expiration Date Visits V isits Requested Authorized [id number] Authorized 03/12/2022 03/12/2023 36 36 Reason for Visit Outpatient (Routine) - Authorized Specialty Diagnoses / Procedures Referred By Contact Refer red To Contact Diagnoses Coronary Artery Disease With Stable Angina (With Other Forms Angina Pectoris) ([facility]) Benja Fry M.D. [facility] [place] Region Procedures Cardiac Rehab Program [address], [address] [place], [place] [address] Referral ID Status Reason Start Date Expiration Date Visits V isits Requested Authorized [id number] Authorized 03/12/2022 03/12/2023 36 36 Encounter Details Date Type Department Care Team Description 05/28/2022 Hospital Encounter Department of Cardiac Benja Fry Coronary Artery Rehabilitation ashlee Palomo M.D. Disease With Stable [place], [facility] deejay [address], Angina (With Other [address] [place] [address] [address] Forms Angina [place], [place], Pectoris) ( [facility]) [address] [place] [address] [phone] Social History Tobacco Use Types Packs/Day Years [...] Disease Benja Fry M.D. [address] [facility] [address] [place] [address] (Wo rk) Scheduled Orders Name Type Priority Associated Diagnoses Order S chedule Cardiac Rehab Card Rehab Routine Coronary Artery Once for 1 Occurrences Program Disease With Stable starting 05/28/2022 Angina (With Other until Forms Angina Pectoris) ([facility]) documented as of this encounter Visit Diagnoses Diagnosis Coronary Artery Disease With Stable Vivienne na (With Other Forms Angina Pectoris) ([facility]) documented in this encounter Additional Health Concerns Assessment Noted Time PHQ-9 Depression Total Score: 6 03/16/2022 9:52 AM CDT documented as of this encounter
--- OUTSIDE RECORDS SUMMARY | 2022-08-04 14:31 | XMS_ITS | Encounter Summary ---
:1955 Author Organization [facility] Address [address] [place] [address] Care Team Providers Name Role Phone Unavailable Primary Care Provider Unavailable Reason for Referral Outpatient (Routine) - Authorized Specialty Diagnoses / Procedures Referred By Contact Refer red To Contact Diagnoses Coronary Artery Disease With Stable Angina (With Other Forms Angina Pectoris) ([facility]) Benja Fry M.D. [facility] Procedures Cardiac Rehab Program [address], [address] [place], [place] [address] Referral ID Status Reason Start Date Expiration Date Visits V isits Requested Authorized [id number] Authorized 03/12/2022 03/12/2023 36 36 Reason for Visit Outpatient (Routine) - Authorized Specialty Diagnoses / Procedures Referred By Contact Refer red To Contact Diagnoses Coronary Artery Disease With Stable Angina (With Other Forms Angina Pectoris) ([facility]) Benja Fry M.D. [facility] Region Procedures Cardiac Rehab Program [address], [address] [place], [place] [address] Referral ID Status Reason Start Date Expiration Date Visits V isits Requested Authorized [id number] Authorized 03/12/2022 03/12/2023 36 36 Encounter Details Date Type Department Care Team Description 03/19/2022 Hospital Encounter Department of Cardiac Benja Fry Coronary Artery Rehabilitation ashlee Palomo M.D. Disease With Stable [place], [facility] deejay [address], Angina (With Other [address] [place] [address] [address] Forms Angina [place], [place], Pectoris) ( [facility]) [address] [place] [address] [phone] Social History Tobacco Use Types Packs/Day Years [...] [address] [facility] 300 [place] [address] (Wo rk) Scheduled Orders Name Type Priority Associated Diagnoses Order S chedule Cardiac Rehab Card Rehab Routine Coronary Artery Once for 1 Occurrences Program Disease With Stable starting 03/19/2022 Angina (With Other until Forms Angina Pectoris) ([facility]) documented as of this encounter Visit Diagnoses Diagnosis Coronary Artery Disease With Stable Vivienne na (With Other Forms Angina Pectoris) ([facility]) documented in this encounter Additional Health Concerns Assessment Noted Time PHQ-9 Depression Total Score: 6 03/16/2022 9:52 AM CDT documented as of this encounter
--- OUTSIDE RECORDS SUMMARY | 2022-08-04 14:31 | XMS_ITS | Encounter Summary ---
:1955 Author Organization [facility] Address [address] [place] [address] Care Team Providers Name Role Phone Unavailable Primary Care Provider Unavailable Reason for Referral Outpatient (Routine) - Authorized Specialty Diagnoses / Procedures Referred By Contact Refer red To Contact Diagnoses Coronary Artery Disease With Stable Angina (With Other Forms Angina Pectoris) ([facility]) Benja Fry M.D. [facility] Procedures Cardiac Rehab Program [address], [address] [place], [place] [address] Referral ID Status Reason Start Date Expiration Date Visits V isits Requested Authorized [id number] Authorized 03/12/2022 03/12/2023 36 36 Reason for Visit Outpatient (Routine) - Authorized Specialty Diagnoses / Procedures Referred By Contact Refer red To Contact Diagnoses Coronary Artery Disease With Stable Angina (With Other Forms Angina Pectoris) ([facility]) Benja Fry M.D. [facility] Region Procedures Cardiac Rehab Program [address], [address] [place], [place] [address] Referral ID Status Reason Start Date Expiration Date Visits V isits Requested Authorized [id number] Authorized 03/12/2022 03/12/2023 36 36 Encounter Details Date Type Department Care Team Description 06/02/2022 Hospital Encounter Department of Cardiac Benja Fry Coronary Artery Rehabilitation ashlee Palomo M.D. Disease With Stable [place], [facility] deejay [address], Angina (With Other [address] [place] [address] [address] Forms Angina [place], [place], Pectoris) ( [facility]) [address] [place] [address] [phone] Social History Tobacco Use Types Packs/Day Years [...] [address] [facility] [address] [place] [address] (Wo rk) Scheduled Orders Name Type Priority Associated Diagnoses Order S chedule Cardiac Rehab Card Rehab Routine Coronary Artery Once for 1 Occurrences Program Disease With Stable starting 06/02/2022 Angina (With Other until Forms Angina Pectoris) ([facility]) documented as of this encounter Visit Diagnoses Diagnosis Coronary Artery Disease With Stable Vivienne na (With Other Forms Angina Pectoris) ([facility]) documented in this encounter Additional Health Concerns Assessment Noted Time PHQ-9 Depression Total Score: 6 03/16/2022 9:52 AM CDT documented as of this encounter
--- OUTSIDE RECORDS SUMMARY | 2022-08-04 14:31 | XMS_ITS | Encounter Summary ---
:1955 Author Organization [facility] Address [address] [place] [address] Care Team Providers Name Role Phone Unavailable Primary Care Provider Unavailable Reason for Referral Outpatient (Routine) - Authorized Specialty Diagnoses / Procedures Referred By Contact Refer red To Contact Diagnoses Coronary Artery Disease With Stable Angina (With Other Forms Angina Pectoris) ([facility]) Benja Fry M.D. [facility] Procedures Cardiac Rehab Program [address], [address] [place], [place] [address] Referral ID Status Reason Start Date Expiration Date Visits V isits Requested Authorized [id number] Authorized 03/12/2022 03/12/2023 36 36 Reason for Visit Outpatient (Routine) - Authorized Specialty Diagnoses / Procedures Referred By Contact Refer red To Contact Diagnoses Coronary Artery Disease With Stable Angina (With Other Forms Angina Pectoris) ([facility]) Benja Fry M.D. [facility] Region Procedures Cardiac Rehab Program [address], [address] [place], [place] [address] Referral ID Status Reason Start Date Expiration Date Visits V isits Requested Authorized [id number] Authorized 03/12/2022 03/12/2023 36 36 Encounter Details Date Type Department Care Team Description 06/11/2022 Hospital Encounter Department of Cardiac Benja Fry Coronary Artery Rehabilitation ashlee Palomo M.D. Disease With Stable [place], [facility] deejay [address], Angina (With Other [address] [place] [address] [address] Forms Angina [place], [place], Pectoris) ( [facility]) [address] [place] [address] [phone] Social History Tobacco Use Types Packs/Day Years [...] [facility] 300 [place] [address] (Wo rk) Scheduled Orders Name Type Priority Associated Diagnoses Order S chedule Cardiac Rehab Card Rehab Routine Coronary Artery Once for 1 Occurrences Program Disease With Stable starting 06/11/2022 Angina (With Other until 03/2022 Forms Angina Pectoris) ([facility]) documented as of this encounter Visit Diagnoses Diagnosis Coronary Artery Disease With Stable Vivienne na (With Other Forms Angina Pectoris) ([facility]) documented in this encounter Additional Health Concerns Assessment Noted Time PHQ-9 Depression Total Score: 6 03/16/2022 9:52 AM CDT documented as of this encounter
--- OUTSIDE RECORDS SUMMARY | 2022-08-04 14:31 | XMS_ITS | Encounter Summary ---
:1955 Author Organization [facility] Address [address] [place] [address] Care Team Providers Name Role Phone Unavailable Primary Care Provider Unavailable Reason for Referral Outpatient (Routine) - Authorized Specialty Diagnoses / Procedures Referred By Contact Refer red To Contact Diagnoses Coronary Artery Disease With Stable Angina (With Other Forms Angina Pectoris) ([facility]) Benja Fry M.D. [facility] Procedures Cardiac Rehab Program [address], [address] [place], [place] [address] Referral ID Status Reason Start Date Expiration Date Visits V isits Requested Authorized [id number] Authorized 03/12/2022 03/12/2023 36 36 Reason for Visit Outpatient (Routine) - Authorized Specialty Diagnoses / Procedures Referred By Contact Refer red To Contact Diagnoses Coronary Artery Disease With Stable Angina (With Other Forms Angina Pectoris) ([facility]) Benja Fry M.D. [facility] Region Procedures Cardiac Rehab Program [address], [address] [place], [place] [address] Referral ID Status Reason Start Date Expiration Date Visits V isits Requested Authorized [id number] Authorized 03/12/2022 03/12/2023 36 36 Encounter Details Date Type Department Care Team Description 06/09/2022 Hospital Encounter Department of Cardiac Benja Fry Coronary Artery Rehabilitation ashlee Palomo M.D. Disease With Stable [place], [facility] deejay [address], Angina (With Other [address] [place] [address] [address] Forms Angina [place], [place], Pectoris) ( [facility]) [address] [place] [address] [phone] Social History Tobacco Use Types Packs/Day Years [...] [address] [facility] [address] [place] [address] (Wo rk) Scheduled Orders Name Type Priority Associated Diagnoses Order S chedule Cardiac Rehab Card Rehab Routine Coronary Artery Once for 1 Occurrences Program Disease With Stable starting 06/09/2022 Angina (With Other until 01/2022 Forms Angina Pectoris) ([facility]) documented as of this encounter Visit Diagnoses Diagnosis Coronary Artery Disease With Stable Vivienne na (With Other Forms Angina Pectoris) ([facility]) documented in this encounter Additional Health Concerns Assessment Noted Time PHQ-9 Depression Total Score: 6 03/16/2022 9:52 AM CDT documented as of this encounter
--- OUTSIDE RECORDS SUMMARY | 2022-08-04 14:31 | XMS_ITS | Encounter Summary ---
:1955 Author Organization [facility] Address [address] [place] [address] Care Team Providers Name Role Phone Unavailable Primary Care Provider Unavailable Reason for Referral Outpatient (Routine) - Authorized Specialty Diagnoses / Procedures Referred By Contact Refer red To Contact Diagnoses Coronary Artery Disease With Stable Angina (With Other Forms Angina Pectoris) ([facility]) Benja Fry M.D. [facility] Procedures Cardiac Rehab Program [address], [address] [place], [place] [address] Referral ID Status Reason Start Date Expiration Date Visits V isits Requested Authorized [id number] Authorized 03/12/2022 03/12/2023 36 36 Reason for Visit Outpatient (Routine) - Authorized Specialty Diagnoses / Procedures Referred By Contact Refer red To Contact Diagnoses Coronary Artery Disease With Stable Angina (With Other Forms Angina Pectoris) ([facility]) [facility]. [facility] Region Procedures Cardiac Rehab Program [address], [address] [place], [place] [address] Referral ID Status Reason Start Date Expiration Date Visits V isits Requested Authorized [id number] Authorized 03/12/2022 03/12/2023 36 36 Encounter Details Date Type Department Care Team Description 06/07/2022 Hospital Encounter Department of Cardiac Benja Fry Coronary Artery Rehabilitation ashlee Palomo M.D. Disease With Stable [place], [facility] deejay [address], Angina (With Other [address] [place] [address] [address] Forms Angina [place], [place], Pectoris) ( [facility]) [address] [place] [address] [phone] Social History Tobacco Use Types Packs/Day Years [...] Disease Benja Fry M.D. [address] [facility] [address] [place] [address] (Wo rk) Scheduled Orders Name Type Priority Associated Diagnoses Order S chedule Cardiac Rehab Card Rehab Routine Coronary Artery Once for 1 Occurrences Program Disease With Stable starting 06/07/2022 Angina (With Other until 11/2021 Forms Angina Pectoris) ([facility]) documented as of this encounter Visit Diagnoses Diagnosis Coronary Artery Disease With Stable Vivienne na (With Other Forms Angina Pectoris) ([facility]) documented in this encounter Additional Health Concerns Assessment Noted Time PHQ-9 Depression Total Score: 6 03/16/2022 9:52 AM CDT documented as of this encounter
--- OUTSIDE RECORDS SUMMARY | 2022-08-04 14:31 | XMS_ITS | Encounter Summary ---
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 [facility] Region Procedures Cardiac Rehab Program [address], [address] [place], [place] [address] Referral ID Status Reason Start Date Expiration Date Visits V isits Requested Authorized [id number] Authorized 03/12/2022 03/12/2023 36 36 Encounter Details Date Type Department Care Team Description 05/31/2022 Hospital Encounter Department of Cardiac Benja Fry Coronary Artery Rehabilitation ashlee Palomo M.D. Disease With Stable [place], [facility] deejay [address], Angina (With Other [address] [place] [address] [address] Forms Angina [place], [place], Pectoris) ( [facility]) [address] [place] [address] [phone] Social History Tobacco Use Types Packs/Day Years [...] Disease Benja Fry M.D. [address] [facility] [address] [place] [address] (Wo rk) Scheduled Orders Name Type Priority Associated Diagnoses Order S chedule Cardiac Rehab Card Rehab Routine Coronary Artery Once for 1 Occurrences Program Disease With Stable starting 05/31/2022 Angina (With Other until Forms Angina Pectoris) [...]
--- OUTSIDE RECORDS SUMMARY | 2022-08-04 14:31 | XMS_ITS | Encounter Summary ---
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 [facility] Region Procedures Cardiac Rehab Program [address], [address] [place], [place] [address] Referral ID Status Reason Start Date Expiration Date Visits V isits Requested Authorized [id number] Authorized 03/12/2022 03/12/2023 36 36 Encounter Details Date Type Department Care Team Description 03/24/2022 Hospital Encounter Department of Cardiac Benja Fry Coronary Artery Rehabilitation ashlee Palomo M.D. Disease With Stable [place], [facility] deejay [address], Angina (With Other [address] [place] [address] [address] Forms Angina [place], [place], Pectoris) ( [facility]) [address] [place] [address] [phone] Social History Tobacco Use Types Packs/Day Years [...] encounter Progress Notes Chau Sow CCRP - 03/24/2022 8:00 AM CDT Pt is on hold from outpatient CR due to COVID and also a PAD procedure planned in May. Pt will contact therapist when procedure is completed and when he is ready to return. As of now his chart is on hold. documented in this encounter Plan of Treatment Upcoming Encounters Date Type Specialty Care Team Description 08/06/2022 Appointment Cardiovascular Disease Benja Fry M.D. [address] [place] [address] (Wo rk) Scheduled Orders Name Type Priority Associated Diagnoses Order S chedule Cardiac Rehab Card Rehab Routine Coronary Artery Once for 1 Occurrences Program Disease With Stable starting 03/24/2022 Angina (With Other until Forms Angina Pectoris) ([facility]) documented as of this encounter Visit Diagnoses Diagnosis Coronary Artery Disease With Stable Vivienne na (With Other Forms Angina Pectoris) ([facility]) documented in this encounter Additional Health Concerns Assessment Noted Time PHQ-9 Depression Total Score: 6 03/16/2022 9:52 AM CDT documented as of this encounter
--- OUTSIDE RECORDS SUMMARY | 2022-08-04 14:31 | XMS_ITS | Encounter Summary ---
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 [facility] Region Procedures Cardiac Rehab Program [address], [address] [place], [place] [address] Referral ID Status Reason Start Date Expiration Date Visits V isits Requested Authorized [id number] Authorized 03/12/2022 03/12/2023 36 36 Encounter Details Date Type Department Care Team Description 05/24/2022 Hospital Encounter Department of Cardiac Benja Fry Coronary Artery Rehabilitation ashlee Palomo M.D. Disease With Stable [place], [facility] deejay [address], Angina (With Other [address] [place] [address] [address] Forms Angina [place], [place], Pectoris) ( [facility]) [address] [place] [address] [phone] Social History Tobacco Use Types Packs/Day Years [...] encounter Progress Notes Chau Sow CCRP - 05/24/2022 8:00 AM CDT Cardiac Rehab Individualized Treatment Plan (ITP) Mr. Chowdary (66 y.o., : 1955) was referred to the [facility] Cardiac Rehab Program and has completed 5 sessions. Medical Record Number (MRN): [id number] Encounter Date: 05/24/2022 PCP: No primary care provider on file. Referring Provider and Supervisor [employer] 03/16/[address] Yohan Gannon Prescribed Sessions 36 Program Information 03/16/2022 Program Type CR Phase II - Center Based Referral Date 03/03/2022 Primary Diagnosis PCI Date 03/02/2022 Secondary Diagnosis PCI PCI Date 01/13/2022 Enrollment Date 03/16/2022 Risks 03/16/2022 AACVPR Risk Low ECHO Date 03/03/2022 Ejection Fraction (EF) % 66 % Symptoms: Symptoms 03/16/2022 06/01/2022 Charting Type Initial Assessment Reassessment Kenny Dyspnea 2 - Slight 2 - Slight Cardiovascular Symptoms Claudication;Fatigue;Shortness of Breath;Lightheadedness Claudication;Shortness of Breath;Lightheadedness;Fatigue Claudication Scale 4 - Moderate Claudication (significant, but able to keep walking) 3 - Mild Claudication (easily forgot about) Generalized Edema None None Right Lower Extremity Edema None None Left Lower Extremity Edema None None Circulation Edema No No Edema Severity None None Comments - PAD was diagnosed and procedure completed early May; some leg pain is still noted but heis able to walk further without the need to stop Exercise Assessment Vital Signs 03/16/2022 06/01/2022 Source ECG ECG Heart Rate 72 103 Source Pulse oximetry Pulse oximetry Cardiac Rhythm SR;SB SR Ectopy PVCs PVCs Ectopy Frequency Rare Rare Six Minute Walk Test (6MWT) 03/16/2022 Total Distance Walked (Meters) 228.6 Estimated METs 2.19 % OF PREDICTED DISTANCE 42.83 % Comments stood and stopped; did not sit; needed to due to claudication discomfort that went away with stopping DASI Calculations 03/16/2022 Estimated V02 Peak 23.12 Estimated MET Level 6.61 IPAQ 03/16/2022 MET-mins/week 278 Exercise Session 03/16/2022 06/01/2022 Session # 1 5 Peak METs 2.1 2.5 Assessment 03/16/2022 06/01/2022 Exercise Stage of Change Preparation Action Assistive Device None None Do you exercise routinely? No No Do you perform strength training? No No Exercise Limitations Yes Yes Limitation Description claudication like sx limit walking progression - Action Taken will take rest breaks as needed PAD procedure completed; able to walk on TM with no rest breaks Fall Risk Assessment 03/16/2022 Have you fallen [...] No Exercise Plan Exercise Prescription 03/16/2022 06/01/2022 Frequency 3-5 sessions per week 3-5 sessions per week Intensity Work at a level that is comfortable but also challenging Work at a level that is comfortable but also challenging Target heart rate (pulse): 100-110 100-110 Rating of Perceived Exertion range (RPE): 11-14 11-14 Rating of Perceived Dyspnea (Kenny Dyspnea): 1-3/10 1-3/10 METS: 2.1-3.1 2.5-3.5 Maintain SpO2 at this percentage: 97 97 Treadmill Speed: 1.5 1.6 Treadmill Grade: 0 0 Duration Warm-up minutes;Aerobic exercise minutes;Increase 1-5 minutes each session, as tolerated Warm-up minutes;Aerobic exercise minutes;Increase 1-5 minutes each session, as tolerated Warm Up Minutes: 2-3 2-3 Aerobic exercise minutes: 30 45 Cool Down minutes: 2-3 2-3 Gradually progress to this many minutes per week: 150 150 Goal minutes: 55 55 Type Arm Ergometer;Recumbent stepper (with or without arms);Walk indoors;Walk outdoors;Walk treadmill Arm Ergometer;Recumbent stepper (with or without arms);Walk indoors;Walk outdoors;Walk treadmill Interval Training Moderate intensity interval training Moderate intensity interval training Progression Use RPE to guide when to increase work level intensity and duration Use RPE to guide when to increase work level intensity and duration Increase continuous exercise to this many minutes: 55 55 Increase by this many METS: 3.5 3.5 Flexibility and Balance Stretch major muscle groups daily Stretch major muscle groups daily Strength Training Chalino Allred Reps: 10 10 Sets: 1 1 Other Exercise Avoid prolonged sitting;Gardening/Yardwork/Housework;Farm Chores;Pedometer: 2,500 steps per day above baseline;Play with children;Take the stairs;Walk for transportation;Walk on work breaks Avoid prolonged sitting;Gardening/Yardwork/Housework;Farm Chores;Pedometer: 2,500 steps per day above baseline;Take the stairs;Walk for transportation Plan 03/16/2022 06/01/2022 Charting Type Initial Assessment Reassessment Goals Compliance to on-site program;Compliance to [...] Toward Goals 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; 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 but is able to get things done 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; 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sx but is able to get things done Activity Education ACTIVITY LOG [id number];EXERCISE AND PHYSICAL ACTIVITY GUIDELINES FOR PEOPLE WITH HEART DISEASE [id number];EXERCISE PROGRAM GUIDELINES [id number] ACTIVITY LOG [id number];EXERCISE AND PHYSICAL ACTIVITY GUIDELINES FOR PEOPLE WITH HEART DISEASE [id number];EXERCISE PROGRAM GUIDELINES [id number] Comments - PAD procedure in early May; able to walk on TM without the need for 3 rest breaks as it was prior to procedure Nutrition Assessment Vital Signs 03/16/2022 06/01/2022 Height 172.7 cm 172.7 cm Weight 86.183 kg - BMI (Calculated) 28.9 - Assessment 03/16/2022 06/01/2022 Nutrition Stage of Change Maintenance Maintenance Dietary Recommendations Low Salt;Low Fat/ Low Cholesterol Low Salt;Low Fat/ Low Cholesterol Low Salt Amount 2000 mg 2000 mg Appetite Good Good Social History Substance and Sexual Activity Alcohol Use Not on file Nutrition Plan Plan 03/16/2022 06/01/2022 Charting Type Initial Assessment Reassessment Goals Increase fruit intake;Increase vegetable intake;Decrease overall portions;Compliance with dietary guidelines;Normalize appetite;Reduce saturated fat intake;Limit sodium intake Increase fruit intake;Increase vegetable intake;Decrease overall portions;Compliance with dietary guidelines;Normalize ap petite;Reduce saturated fat intake;Limit sodium intake Goal Weight no goal weight set on initial session no goal weight set on initial session Modify weight by Decrease;Percent (%) Decrease;Percent (%) Percent (%) 5 % 5 % Interventions Dietary Consult [...] Nutrition Education LOWERING HIGH CHOLESTEROL THROUGH DIET [id number];MARKETING MGR CONSULT/CLASS LOWERING HIGH CHOLESTEROL THROUGH DIET [id number];MARKETING MGR CONSULT/CLASS Comments - no change Psychosocial Assessment PHQ-9 03/16/2022 Charting Type Initial Assessment PHQ-9 Score 6 Interpretation Mild depression [facility] 03/16/2022 Total Score 20 Assessment 03/16/2022 06/01/2022 Psychosocial Stage of Change Maintenance Maintenance Current Medication Therapy No No Support Systems Spouse;Significant other;Children;Family members - Patient Stress Factors Health changes Health changes Needs Expressed Denies Denies Psychosocial Plan Plan 03/16/2022 06/01/2022 Charting Type Initial Assessment Reassessment Goals Verbalize appropriate coping skills;Identify a [...] TECHNIQUE CLASS Comments - PAD sx improved Other Core Components Hypertension Assessment Vital Signs 03/16/2022 06/01/2022 BP 130/68 116/74 BP Location Left arm;Upper Left arm;Upper Assessment 03/16/2022 06/01/2022 Hypertension Stage of Change Action Action History of Hypertension Yes Yes Current Medication Therapy Yes Yes Hypertension Plan Plan 03/16/2022 06/01/2022 Charting Type Initial Assessment Reassessment Goals Stable BP response;BP at physician [...] Hypertension Education BLOOD PRESSURE RECORD WALLET CARD [id number];HIGH BLOOD PRESSURE (HYPERTENSION) [id number];MANAGING CHOLESTEROL SODIUM AND TRIGLYCERIDES [id number] BLOOD PRESSURE RECORD WALLET CARD [id number];HIGH BLOOD PRESSURE (HYPERTENSION) [id number];MANAGING CHOLESTEROL SODIUM AND TRIGLYCERIDES [id number] Comments - no change Hyperlipidemia Assessment Assessment 03/16/2022 06/01/2022 History of Hyperlipidemia Yes Yes Current Medication Therapy Yes Yes Hyperlipidemia Stage of Change Maintenance Maintenance Lipids No lab values to display. Hyperlipidemia Plan Plan 03/16/2022 06/01/2022 Charting Type Initial Assessment Reassessment Goals Improve Lipids;Lipids in optimal range;Understand current Lipid profile Improve Lipids;Lipids in optimal range;Understand current Lipid profile Interventions Therapist Discussion;Human Services Manager consult/class;Review lipid profile;Discussion on statins Therapist Discussion;Human Services Manager consult/class;Review lipid profile;Discussion on statins Progress Toward Goals tolerating statin well tolerating statin well Hyperlipidemia Education LOWERING HIGH CHOLESTEROL THROUGH DIET [id number] LOWERING HIGH CHOLESTEROL THROUGH DIET [id number] Comments - no change Diabetes Assessment Lab Results None Diabetes Plan Plan 03/16/2022 06/01/2022 Charting Type Initial Assessment Reassessment Tobacco Assessment Smoking History/Assessment 03/16/2022 Smoking Status Former (greater than 6 months) Quit Date 11/15/2005 Smoking Types cigarettes Packs Per Day 1 Years 32 Assessment 03/16/2022 06/01/2022 Charting Type Initial Assessment Reassessment Tobacco Stage of Change Maintenance - Exposure to second hand smoke None Identified None Identified Social History Substance and Sexual Activity Drug Use Not on file Drug Abuse Screening Test (DAST) 03/16/2022 06/01/2022 How many times in the past year have you used a recreational drug or used a prescription medication for nonmedical reasons? Never Never Tobacco Plan Plan 03/16/2022 06/01/2022 Charting Type Initial Assessment Reassessment Progress Toward Goals has been smoke free since 2005 and it is going well - Heart Failure Assessment Assessment 03/16/2022 06/01/2022 Generalized Edema None None Right Lower Extremity Edema None None Left Lower Extremity Edema None None Circulation Edema No No Edema Severity None None Heart Failure Plan Plan 03/16/2022 06/01/2022 Charting Type Initial Assessment Reassessment Medication Compliance Assessment Assessment 03/16/2022 06/01/2022 Med Compliance Stage of Change Maintenance Maintenance Medication Compliance Plan Plan 03/16/2022 06/01/2022 Charting Type Initial Assessment Reassessment Goals Medication compliance;Knowledge of medication (Comment) Medication compliance;Knowledge of medication (Comment) Interventions Therapist Discussion;Medication review Therapist Discussion;Medication review Comments reviewed on initial session - Fletcher Education/Other Education: Medications were reviewed every visit. documented in this encounter Plan of Treatment Upcoming Encounters Date Type Specialty Care Team Description 08/06/2022 Appointment Cardiovascular Disease Benja Fry M.D. [address] [place] [address] [address] [place] [address] (Wo rk) Scheduled Orders Name Type Priority Associated Diagnoses Order S [facility] Cardiac Rehab Card Rehab Routine Coronary Artery Once for 1 Occurrences Program Disease With Stable starting 05/24/2022 Angina (With Other until Forms Angina Pectoris) ([facility]
--- OUTSIDE RECORDS SUMMARY | 2022-08-04 14:31 | XMS_ITS | Encounter Summary ---
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 [facility] Procedures Cardiac Rehab Program [address], [address] [place], [place] [address] Referral ID Status Reason Start Date Expiration Date Visits V isits Requested Authorized [id number] Authorized 03/12/2022 03/12/2023 36 36 Encounter Details Date Type Department Care Team Description 03/16/2022 Hospital Encounter Department of Cardiac Benja Fry Coronary Artery Rehabilitation ashlee Palomo M.D. Disease With Stable [place], [facility] deejay [address], Angina (With Other [address] [place] [address] [address] Forms Angina [place], [place], Pectoris) ( [facility]) [id number] [place] [address] [phone] Social History Tobacco Use Types Packs/Day Years Used Date Smoking Tobacco: Never Assessed Sex Assigned at Date Recorded Not on file documented as of this encounter Last Filed Vital Signs Vital Sign Reading Time Taken Comments Blood Pressure 130/68 03/16/2022 10:00 AM CDT Pulse - - Temperature - - Respiratory Rate - - Oxygen Saturation - - Inhaled Oxygen Concentration - - Weight 86.2 kg (190 lb) 03/16/2022 9:00 AM CDT Height 172.7 cm (5' 8) 03/16/2022 9:00 AM CDT Body Mass Index 28.89 03/16/2022 9:00 AM CDT documented in this encounter Medications at Time of Discharge [...] encounter Progress Notes Chau Sow CCRP - 03/16/2022 8:00 AM CDT Cardiac Rehab Individualized Treatment Plan (ITP) Mr. Chowdary (66 y.o., : 1955) was referred to the [facility] Cardiac Rehab Program and has completed 1 session. Medical Record Number (MRN): [id number] Encounter Date: 03/16/2022 PCP: No primary care provider on file. Referring Provider and Hydropulper Operator 03/16/[address] Yohan Gannon Prescribed Sessions 36 Program Information 03/16/2022 Program Type CR Phase II - Center Based Referral Date 03/03/2022 Primary Diagnosis PCI Date 03/02/2022 Secondary Diagnosis PCI PCI Date 01/13/2022 Enrollment Date 03/16/2022 Risks 03/16/2022 AACVPR Risk Low ECHO Date 03/03/2022 Ejection Fraction (EF) % 66 % Symptoms: Symptoms 03/16/2022 Charting Type Initial Assessment Kenny Dyspnea 2 - Slight Cardiovascular Symptoms Claudication;Fatigue;Shortness of Breath;Lightheadedness Claudication Scale 4 - Moderate Claudication (significant, but able to keep walking) Generalized Edema None Right Lower Extremity Edema None Left Lower Extremity Edema None Circulation Edema No Edema Severity None Exercise Assessment Vital Signs 03/16/2022 Source ECG Heart Rate 72 Source Pulse oximetry Cardiac Rhythm SR;SB Ectopy PVCs Ectopy Frequency Rare Six Minute Walk Test (6MWT) 03/16/2022 Total Distance Walked (Meters) 228.6 Estimated METs 2.19 % OF PREDICTED DISTANCE 42.83 % Comments stood and stopped; did not sit; needed to due to claudication discomfort that went away with stopping DASI Calculations 03/16/2022 Estimated V02 Peak 23.12 Estimated MET Level 6.61 IPAQ 03/16/2022 MET-mins/week 278 Exercise Session 03/16/2022 Session # 1 Peak METs 2.1 Assessment 03/16/2022 Exercise Stage of Change Preparation Assistive Device None Do you exercise routinely? No Do you perform strength training? No Exercise Limitations Yes Limitation Description claudication like sx limit walking progression Action Taken will take rest breaks as needed Fall Risk Assessment 03/16/2022 Have you fallen [...] medication No Exercise Plan Exercise Prescription 03/16/2022 Frequency 3-5 sessions per week Intensity Work at a level that is comfortable but also challenging Target heart rate (pulse): 100-110 Rating of Perceived Exertion range (RPE): 11-14 Rating of Perceived Dyspnea (Kenny Dyspnea): 1-3/10 METS: 2.1-3.1 Maintain SpO2 at this percentage: 97 Treadmill Speed: 1.5 Treadmill Grade: 0 Duration Warm-up minutes;Aerobic exercise minutes;Increase 1-5 minutes each session, as tolerated Warm Up Minutes: 2-3 Aerobic exercise minutes: 30 Cool Down minutes: 2-3 Gradually progress to this many minutes per week: 150 Goal minutes: 55 Type Arm Ergometer;Recumbent stepper (with or without arms);Walk indoors;Walk outdoors;Walk treadmill Interval Training Moderate intensity interval training Progression Use RPE to guide when to increase work level intensity and duration Increase continuous exercise to this many minutes: 55 Increase by this many METS: 3.5 Flexibility and Balance Stretch major muscle groups daily Strength Training Calisthenics Reps: 10 Sets: 1 Other Exercise Avoid prolonged sitting;Gardening/Yardwork/Housework;Farm Chores;Pedometer: 2,500 steps per day above baseline;Play with children;Take the stairs;Walk for transportation;Walk on work breaks Plan 03/16/2022 Charting Type Initial Assessment Goals Compliance to on-site program;Compliance to home program;Return to work / community service;Target MET level (Comment);Improve exercise tolerance Interventions Therapist Discussion;Vocational/return to work recommendations;Equipment/facility orientation;Review of signs/symptoms to report;Exercise/activity guidelines Progress Toward Goals 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; 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 but is able to get things done Activity Education ACTIVITY LOG [id number];EXERCISE AND PHYSICAL ACTIVITY GUIDELINES FOR PEOPLE WITH HEART DISEASE [id number];EXERCISE PROGRAM GUIDELINES [id number] Nutrition Assessment Vital Signs 03/16/2022 Height 172.7 cm Weight 86.183 kg BMI (Calculated) 28.9 Assessment 03/16/2022 Nutrition Stage of Change Maintenance Dietary Recommendations Low Salt;Low Fat/ Low Cholesterol Low Salt Amount 2000 mg Appetite Good Social History Substance and Sexual Activity Alcohol Use Not on file Nutrition Plan Plan 03/16/2022 Charting Type Initial Assessment Goals Increase fruit intake;Increase vegetable intake;Decrease overall portions;Compliance with dietary guidelines;Normalize appetite;Reduce saturated fat intake;Limit sodium intake Goal Weight no goal weight set on initial session Modify weight by Decrease;Percent (%) Percent (%) 5 % Interventions Dietary Consult Referral;Discussion on identifying/incorporating diet changes;Home weight monitoring;Discussion on current eating habits;Diet survey review;Meal/snack related to exercise;Nutrition Class;Therapist Discussion Progress Toward Goals pt is working on low salt; low cholesterol Nutrition Education LOWERING HIGH CHOLESTEROL THROUGH DIET [id number];SECURITY INTERN CONSULT/CLASS Psychosocial Assessment PHQ-9 03/16/2022 Charting Type Initial Assessment PHQ-9 Score [address] [facility] 03/16/2022 Total Score 20 Assessment 03/16/2022 Psychosocial Stage of Change Maintenance Current Medication Therapy No Support Systems Spouse;Significant other;Children;Family members Patient Stress Factors Health changes Needs Expressed Denies Psychosocial Plan Plan 03/16/2022 Charting Type Initial Assessment Goals Verbalize appropriate coping skills;Identify a positive [...] list Psychosocial Education STRESS MANAGEMENT/RELAXATION TECHNIQUE CLASS Other Core Components Hypertension Assessment Vital Signs 03/16/2022 BP 130/68 BP Location Left arm;Upper Assessment 03/16/2022 Hypertension Stage of Change Action History of Hypertension Yes Current Medication Therapy Yes Hypertension Plan Plan 03/16/2022 Charting Type Initial Assessment Goals Stable BP response;BP at physician prescribed goal;Decrease sodium Interventions Therapist Discussion;Communication with provider Progress Toward Goals pt is recent to BP medications; his BP is better now than before; tolerating medications well and working on low salt diet Hypertension Education BLOOD PRESSURE RECORD WALLET CARD [id number];HIGH BLOOD PRESSURE (HYPERTENSION) [id number];MANAGING CHOLESTEROL SODIUM AND TRIGLYCERIDES [id number] Hyperlipidemia Assessment Assessment 03/16/2022 History of Hyperlipidemia Yes Current Medication Therapy Yes Hyperlipidemia Stage of Change Maintenance Lipids No lab values to display. Hyperlipidemia Plan Plan 03/16/2022 Charting Type Initial Assessment Goals Improve Lipids;Lipids in optimal range;Understand current Lipid profile Interventions Therapist Discussion;Sales Representative Graphic Art consult/class;Review lipid profile;Discussion on statins Progress Toward Goals tolerating statin well Hyperlipidemia Education LOWERING HIGH CHOLESTEROL THROUGH DIET [id number] Diabetes Assessment Lab Results None Diabetes Plan Plan 03/16/2022 Charting Type Initial Assessment Tobacco Assessment Smoking History/Assessment 03/16/2022 Smoking Status Former (greater than 6 months) Quit Date 11/15/2005 Smoking Types cigarettes Packs Per Day 1 Years 32 Assessment 03/16/2022 Charting Type Initial Assessment Tobacco Stage of Change Maintenance Exposure to second hand smoke None Identified Social History Substance and Sexual Activity Drug Use Not on file Drug Abuse Screening Test (DAST) 03/16/2022 How many times in the past year have you used a recreational drug or used a prescription medication for nonmedical reasons? Never Tobacco Plan Plan 03/16/2022 Charting Type Initial Assessment Progress Toward Goals has been smoke free since 2005 and it is going well Heart Failure Assessment Assessment 03/16/2022 Generalized Edema None Right Lower Extremity Edema None Left Lower Extremity Edema None Circulation Edema No Edema Severity None Heart Failure Plan Plan 03/16/2022 Charting Type Initial Assessment Medication Compliance Assessment Assessment 03/16/2022 Med Compliance Stage of Change Maintenance Medication Compliance Plan Plan 03/16/2022 Charting Type Initial Assessment Goals Medication compliance;Knowledge of medication (Comment) Interventions Therapist Discussion;Medication review Comments reviewed on initial session Fletcher Education/Other Education: Medications were reviewed every visit. documented in this encounter Plan of Treatment Upcoming Encounters Date Type Specialty Care Team Description 08/06/2022 Appointment Cardiovascular Disease Benja Fry M.D. [address] [place] [id number] (Wo rk) Scheduled Orders Name Type Priority Associated Diagnoses [facility] Card Rehab Routine Coronary Artery Once for 1 Occurrences Program Disease With Stable starting 03/16/2022 Angina (With Other until 08/2022 Forms Angina Pectoris) ([facility]) documented as of this encounter Visit Diagnoses Diagnosis Coronary Artery Disease With Stable Vivienne na (With Other Forms Angina Pectoris) ([facility]) documented in this encounter Additional Health Concerns Assessment Noted Time PHQ-9 Depression Total Score: 6 03/16/2022 9:52 AM CDT documented as of this encounter
--- OUTSIDE RECORDS SUMMARY | 2022-08-04 14:31 | XMS_ITS | Encounter Summary ---
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 [facility] Procedures Cardiac Rehab Program [address], [address] [place], [place] [address] Referral ID Status Reason Start Date Expiration Date Visits V isits Requested Authorized [id number] Authorized 03/12/2022 03/12/2023 36 36 Encounter Details Date Type Department Care Team Description 03/22/2022 Hospital Encounter Department of Cardiac Benja Fry Coronary Artery Rehabilitation ashlee Palomo M.D. Disease With Stable [place], [facility] deejay [address], Angina (With Other [address] [place] [address] [address] Forms Angina [place], [place], Pectoris) ( [facility]) [id number] [place] [id number] [phone] Social History Tobacco Use Types Packs/Day Years [...] Fry M.D. [address] [facility] [address] [place] [address] (Wo rk) Scheduled Orders Name Type Priority Associated Diagnoses Order S chedule Cardiac Rehab Card Rehab Routine Coronary Artery Once for 1 Occurrences Program Disease With Stable starting 03/22/2022 Angina (With Other until Forms Angina Pectoris) ([facility]) documented as of this encounter Visit Diagnoses Diagnosis Coronary Artery Disease With Stable Vivienne na (With Other Forms Angina Pectoris) ([facility]) documented in this encounter Additional Health Concerns Assessment Noted Time PHQ-9 Depression Total Score: 6 03/16/2022 9:52 AM CDT documented as of this encounter
--- OUTSIDE RECORDS SUMMARY | 2022-08-04 14:31 | XMS_ITS | Encounter Summary ---
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 [facility] Region Procedures CT Abd Pelvis Angio and Lower Ext Runoff Bilat with IV Contrast [address] [place] [address] Referral ID Status Reason Start Date Expiration Date Visits Requ ested Visits Authorized [id number] Closed 03/23/2022 03/23/2023 1 1 Reason for Visit MRI/CAT/PET Scan (Routine) - Closed Specialty Diagnoses / Procedures Referred By Contact Refer red To Contact Radiology Diagnoses Coronary Artery Disease With Stable Angina (With Other Forms Angina Pectoris) (HCC) Abilio Qureshi M.D. [facility] Region Procedures CT Abd Pelvis Angio and Lower Ext Runoff Bilat with IV Contrast [address] [place] [address] Referral ID Status Reason Start Date Expiration Date Visits Requ ested Visits Authorized [id number] Closed 03/23/2022 03/23/2023 1 1 Encounter Details Date Type Department Care Team Description 03/23/2022 Hospital Encounter Department of Abilio Qureshi Coronar y Artery Radiology in Tunde Meza M.D. Disease With Stable [place], [place] [address] Angina (With Other [address] [place], [place] [address] Pectoris) ([facility]) [id number] Social History Tobacco Use Types Packs/Day Years [...] Cardiovascular Disease Benja Fry M.D. [address] [place] [address] [address] [place] [address] (Wo rk) documented as of this encounter Procedures Procedure Name Priority Date/Time Associated Comments Diagnosis CT ABD PELVIS RAD - Routine 03/23/2022 12:35 Coronary Artery Result s for this ANGIO AND LOWER (most inpatients PM CDT Disease With procedur e are in EXT RUNOFF BILAT and all Stable Angina the result s WITH IV CONTRAST outpatients) (With Other Forms sectio n. Angina Pectoris) ([facility]) documented in this encounter Results CT Abd Pelvis Angio and Lower Ext Runoff Bilat with IV Contrast (03/23/2022 12:35 PM CDT) Anatomical Region Laterality Modality Abdomen, Pelvis, Cardiovascular RST LOS, Vascular Bilateral Computed Tomography Interventional ARZ LOS, Vascular Interventional FLA LOS, Procedural Specimen (Source) Anatomical Collection Method Collection Time Re ceived Time Location / / Volume Laterality 03/23/2022 12:44 PM CDT Impressions 03/24/2022 12:04 AM CDT 1. ??Multifocal atherosclerosis resulting in 90% stenosis at the ostium of the left common iliac artery, 90% stenosis at the left poplite al artery, and suspected multifocal occlusion at the left NILA, though a two-vessel runoff is paten t to at least the distal three fourths of the left lower leg. Consider correlation with arterial ultrasound for pedal vessel patency if clinically indicated. 2. ??Left lower extremity arteries with single focus of high-grade stenosis near the adductor hiatus. Three vessel right lower leg runoff is p atent to at least the mid calf. 3. ??5 mm pulmonary nodularity in the ri ght lower lobe. If the patient has risk factors, recommend follow-up CT chest in 12 months. Narrative 03/24/2022 12:04 AM CDT EXAM: CT ABD PELVIS ANGIO AND LOWER EXT RUNOFF BILAT WITH IV CONTRAST Including 3-D image postprocessing. COMPARISON: None available at this insti tution FINDINGS: Vascular: Abdominal aorta: Moderate atherosclerosi s including calcified coral reef type plaque in the infrarenal abdominal aorta resulting in 20% stenosis. Aorta is tortuous but normal in caliber. Celiac artery: No significant stenosis. Superior mesenteric artery: No significa nt stenosis. Inferior mesenteric artery: No significa nt stenosis. Right renal artery: Calcified plaque at the ostium resulting in 20% stenosis. No high-grade stenosis. Left renal artery: Mild atherosclerotic plaque at the ostium resulting in no stenosis. Right common iliac artery: Peripheral ca lcifications without causing significant stenosis. Tortuous vessel. Right internal iliac artery: No signific ant stenosis. Right external iliac artery: No stenosis . Right common femoral artery: Calcified p laque along the posterior margin results in 40% stenosis throughout the common femoral artery. Right superficial femoral artery: Calcif ied plaque near the adductor hiatus results in 70% stenosis. Right profunda femoris artery: No stenos is. Right popliteal artery: Mild atheroscler otic plaque without causing significant stenosis. Right three vessel runoff: Poor contrast enhancement in the infrapopliteal vessels limit the evaluation. 3 vessel runoff is patent to at least the mid calf region. Atherosclerotic plaque is present and results in areas of mild kong noses along the segments containing contrast. Left common iliac artery: Faintly calcif ied plaque at the ostium for the left common iliac artery is associated with 90% stenosis for a short segment measuring 7 mm in length. Left internal iliac artery: Scattered at herosclerosis throughout the vessel resulting in multifocal mild stenoses. Left external iliac artery: No stenosis. Left common femoral artery: Mild atheros clerosis resulting in no stenosis. Very short left common femoral artery and high bifurcation loca nanci at the level of the mid femoral head. Left superficial femoral artery: Mild at herosclerosis near the adductor hiatus resulting in 20% stenosis. Left profunda femoris artery: Tortuosity and plaque result in mild stenosis measuring 30% at the ostium. Left popliteal artery: Multifocal athero sclerotic plaque including a coral reef plaque located at the junction of the P1 and P2 segments r esulting in 90% stenosis for a short segment measuring 8 mm in length. Moderate stenosis located at the mid P2 segment resulting in 50% stenosis. Left three vessel runoff: Poor contrast enhancement in the infrapopliteal vessels limit the evaluation. Multifocal calcifications th roughout the NILA probably representing multifocal occlusions. Two-vessel runoff is patent to at least the distal three fourths of the lower leg. Non-vascular: Lung bases: 5 mm pulmonary nodularity in the right lower lobe posterior laterally (series 5, image 72). Lung bases are otherwise clear. Rig ht ventricle is enlarged. Coronary artery stenting. Liver: Normal hepatic contours. Gallbladder and biliary tree: Normal deion earing gallbladder. No biliary ductal dilatation. Pancreas: No main pancreas duct dilation . No surrounding inflammatory stranding. Spleen: Normal in size. Small splenule l ocated at the splenic hilum. Adrenal glands: Symmetric with no mass. Kidneys:No hydronephrosis or nephrolithi asis. Normal renal enhancement. Punctate bilateral renal cortical exophytic hypodensities, too sm all to further characterize but statistically most likely representing renal cysts. Bowel: The bowel shows no sign of obstru ction. Diverticulosis of the descending and sigmoid colon. Mesentery: No ascites or mesenteric lymp hadenopathy. Retroperitoneum: No retroperitoneal lymp hadenopathy. Pelvis: No pelvic free fluid. Bones: L2 compression deformity without acute fracture lucencies. Multilevel spondylosis throughout the lumbar spine, greatest at L5-S1. Mil d degenerative changes at the knee, slightly greater on the right. Procedure Note Rd Yañez M.D. - 03/24/2022Formatt ing of this note might be different from the original. EXAM: CT ABD PELVIS ANGIO AND LOWER EXT RUNOFF BILAT WITH IV CONTRAST Including 3-D image postprocessing. COMPARISON: None available at this insti tution FINDINGS: Vascular: Abdominal aorta: Moderate atherosclerosi s including calcified coral reef type plaque in the infrarenal abdominal aorta resulting in 20% stenosis. Aorta is tortuous but normal in caliber. Celiac artery: No significant stenosis. Superior mesenteric artery: No significa nt stenosis. Inferior mesenteric artery: No significa nt stenosis. Right renal artery: Calcified plaque at the ostium resulting in 20% stenosis. No high-grade stenosis. Left renal artery: Mild atherosclerotic plaque at the ostium resulting in no stenosis. Right common iliac artery: Peripheral ca lcifications without causing significant stenosis. Tortuous vessel. Right internal iliac artery: No signific ant stenosis. Right external iliac artery: No stenosis . Right common femoral artery: Calcified p laque along the posterior margin results in 40% stenosis throughout the common femoral artery. Right superficial femoral artery: Calcif ied plaque near the adductor hiatus results in 70% stenosis. Right profunda femoris artery: No stenos is. Right popliteal artery: Mild atheroscler otic plaque without causing significant stenosis. Right three vessel runoff: Poor contrast enhancement in the infrapopliteal vessels limit the evaluation. 3 vessel runoff is patent to at least the mid calf region. Atherosclerotic plaque is present and results in areas of mild kong noses along the segments containing contrast. Left common iliac artery: Faintly calcif ied plaque at the ostium for the left common iliac artery is associated with 90% stenosis for a short segment measuring 7 mm in length. Left internal iliac artery: Scattered at herosclerosis throughout the vessel resulting in multifocal mild stenoses. Left external iliac artery: No stenosis. Left common femoral artery: Mild atheros clerosis resulting in no stenosis. Very short left common femoral artery and high bifurcation loca nanci at the level of the mid femoral head. Left superficial femoral artery: Mild at herosclerosis near the adductor hiatus resulting in 20% stenosis. Left profunda femoris artery: Tortuosity and plaque result in mild stenosis measuring 30% at the ostium. Left popliteal artery: Multifocal athero sclerotic plaque including a coral reef plaque located at the junction of the P1 and P2 segments r esulting in 90% stenosis for a short segment measuring 8 mm in length. Moderate stenosis located at the mid P2 segment resulting in 50% stenosis. Left three vessel runoff: Poor contrast enhancement in the infrapopliteal vessels limit the evaluation. Multifocal calcifications th roughout the NILA probably representing multifocal occlusions. Two-vessel runoff is patent to at least the distal three fourths of the lower leg. Non-vascular: Lung bases: 5 mm pulmonary nodularity in the right lower lobe posterior laterally (series 5, image 72). Lung bases are otherwise clear. Rig ht ventricle is enlarged. Coronary artery stenting. Liver: Normal hepatic contours. Gallbladder and biliary tree: Normal deion earing gallbladder. No biliary ductal dilatation. Pancreas: No main pancreas duct dilation . No surrounding inflammatory stranding. Spleen: Normal in size. Small splenule l ocated at the splenic hilum. Adrenal glands: Symmetric with no mass. Kidneys:No hydronephrosis or nephrolithi asis. Normal renal enhancement. Punctate bilateral renal cortical exophytic hypodensities, too sm all to further characterize but statistically most likely representing renal cysts. Bowel: The bowel shows no sign of obstru ction. Diverticulosis of the descending and sigmoid colon. Mesentery: No ascites or mesenteric lymp hadenopathy. Retroperitoneum: No retroperitoneal lymp hadenopathy. Pelvis: No pelvic free fluid. Bones: L2 compression deformity without acute fracture lucencies. Multilevel spondylosis throughout the lumbar spine, greatest at L5-S1. Mil d degenerative changes at the knee, slightly greater on the right. IMPRESSION: 1. Multifocal atherosclerosis resulting in 90% stenosis at the ostium of the left common iliac artery, 90% stenosis at the left poplite al artery, and suspected multifocal occlusion at the left NILA, though a two-vessel runoff is paten t to at least the distal three fourths of the left lower leg. Consider correlation with arterial ultrasound for pedal vessel patency if clinically indicated. 2. Left lower extremity arteries with si ngle focus of high-grade stenosis near the adductor hiatus. Three vessel right lower leg runoff is p atent to at least the mid calf. 3. 5 mm pulmonary nodularity in the righ t lower lobe. If the patient has risk factors, recommend follow-up CT chest in [address] PROCEDURES documented in this encounter Visit Diagnoses Diagnosis Coronary Artery Disease With Stable Vivienne na (With Other Forms Angina Pectoris) (HCC) documented in this encounter Administered Medications Inactive Administered Medications - up to 3 most recent administrations Medication Order MAR Action Action Date Dose Rate Site iohexoL 350 mg iodine/mL solution Given 03/23/2022 12:46 PM CDT 140 mL 1-200 mL (OMNIPAQUE) 1-200 mL, intravenous, Once in imaging, contrast, Starting on Tue03/23/22 at 1236, For 1 dose, Dose per Radiant Medication Guidelines NaCl 0.9 % bolus 100 mL Bolus from Bag 03/23/2022 12:40 PM CDT 100 mL 100 mL/hr 100 mL, intravenous, at 100 mL/hr, Administer over 1 Hours, Once in imaging, Post Contrast, Starting on Tue03/23/22 at 1236, For 1 dose sodium chloride 0.9 % injection 10 mL Given 03/23/2022 12:40 PM CDT 10 mL 10 mL, intravenous, Once in imaging, line care, Starting on Tue03/23/22 at 1236, For 1 dose documented in this encounter Additional Health Concerns Assessment Noted Time PHQ-9 Depression Total Score: 6 03/16/2022 9:52 AM CDT documented as of this encounter
--- OUTSIDE RECORDS SUMMARY | 2022-08-04 14:31 | XMS_ITS | Encounter Summary ---
:1955 Author Organization [facility] Address [address] [place] [address] Care Team Providers Name Role Phone Unavailable Primary Care Provider Unavailable Reason for Referral Outpatient (Routine) - Authorized Specialty Diagnoses / Procedures Referred By Contact Refer red To Contact Diagnoses Coronary Artery Disease With Stable Angina (With Other Forms Angina Pectoris) ([facility]) Benja Fry M.D. [facility] Procedures Cardiac Rehab Program [address], [address] [place], [place] [address] Referral ID Status Reason Start Date Expiration Date Visits V isits Requested Authorized [id number] Authorized 03/12/2022 03/12/2023 36 36 Reason for Visit Outpatient (Routine) - Authorized Specialty Diagnoses / Procedures Referred By Contact Refer red To Contact Diagnoses Coronary Artery Disease With Stable Angina (With Other Forms Angina Pectoris) ([facility]) [facility] Region Procedures Cardiac Rehab Program [address], [address] [place], [place] [address] Referral ID Status Reason Start Date Expiration Date Visits V isits Requested Authorized [id number] Authorized 03/12/2022 03/12/2023 36 36 Encounter Details Date Type Department Care Team Description 06/14/2022 Hospital Encounter Department of Cardiac Benja Fry Coronary Artery Rehabilitation ashlee Palomo M.D. 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 [address] [facility] [address] [place] [address] (Wo rk) Scheduled Orders Name Type Priority Associated Diagnoses Order S chedule Cardiac Rehab Card Rehab Routine Coronary Artery Once for 1 Occurrences Program Disease With Stable starting 06/14/2022 Angina (With Other until 06/2022 Forms Angina Pectoris) ([facility]) documented as of this encounter Visit Diagnoses Diagnosis Coronary Artery Disease With Stable Vivienne na (With Other Forms Angina Pectoris) ([facility]) documented in this encounter Additional Health Concerns Assessment Noted Time PHQ-9 Depression Total Score: 6 03/16/2022 9:52 AM CDT documented as of this encounter
[2022-08-04 16:08] LABS: Albumin* 4.5 g/dL (3.3-5.0); Chloride* 94 mmol/L (96-114)
[2022-08-04 16:09] LABS: Potassium* 3.9 mmol/L (3.6-5.1); Sodium* 129 mmol/L (135-149)
[2022-08-04 16:11] LABS: Aspartate Amino Transferase* 29 U/L (12-35); Bilirubin Total* 1.1 mg/dL (0.1-1.5); Blood Urea Nitrogen* 13 mg/dL (7-30); Carbon Dioxide* 27 mmol/L (20-32); Cholesterol* 110 mg/dL (90-199); Creatinine* 0.9 mg/dL (0.5-1.5); Estimated Glomerular Filt Rate 95 ml/min; Glucose* 89 mg/dL (60-115); Total Protein* 6.9 g/dL (6.0-8.3)
[2022-08-04 16:12] LABS: Alanine Aminotransferase* 18 U/L (4-50); Alkaline Phosphatase* 72 U/L (40-150); HDL Cholesterol* 58 mg/dL (>=40); LDL Cholesterol Calculated 35 mg/dL (<100); Triglycerides* 84 mg/dL (40-149)
[2022-08-04 16:41] LABS: TSH With Reflex to FT4* 0.132 uIU/mL (0.270-4.200)
[2022-08-04 18:19] LABS: Free T4 Free Thyroxine* 1.58 ng/dL (0.70-1.85)
== END 2022-08-04 14:28 | disposition home or self-care (01) ==
PROVIDERS: PCP Internal Medicine; Visit Provider Internal Medicine
DX: Z98.890 Other specified postprocedural states (principal); I10 Essential (primary) hypertension; E03.9 Hypothyroidism, unspecified; Z13.6 Encounter for screening for cardiovascular disorders
CPT/HCPCS: 80053; 80061; 84439; 84443

== ENCOUNTER 2022-09-16 08:40 | Outpatient (CLI) | payer OTHER, SELFPAY ==
--- OUTSIDE RECORDS SUMMARY | 2022-09-16 07:59 | XMS_ITS | Encounter Summary ---
:1955 Author Organization [facility] Address [address] [place] [address] Care Team Providers Name Role Phone Unavailable Primary Care Provider Unavailable Reason for Referral Outpatient (Routine) - Closed Specialty Diagnoses / Procedures Referred By Contact Refer red To Contact Diagnoses Coronary Artery Disease With Stable Angina (With Other Forms Angina Pectoris) ([facility]) Benja Fry M.D. [facility] Procedures Cardiac Rehab Program [address], [address] [place], [place] [address] Referral ID Status Reason Start Date Expiration Date Visits Requ ested Visits Authorized [id number] Closed 03/12/2022 03/12/2023 36 36 Reason for Visit Outpatient (Routine) - Closed Specialty Diagnoses / Procedures Referred By Contact Refer red To Contact Diagnoses Coronary Artery Disease With Stable Angina (With Other Forms Angina Pectoris) ([facility]) [facility]. [facility] Procedures Cardiac Rehab Program [address] [place], [place] [address] Referral ID Status Reason Start Date Expiration Date Visits Requ ested Visits Authorized [id number] Closed 03/12/2022 03/12/2023 36 36 Encounter Details Date Type Department Care Team Description 07/21/2022 Hospital Encounter Department of Cardiac Benja Fry Coronary Artery Rehabilitation ashlee Palomo M.D. Disease With Stable [place], [facility] deejay [address], Angina (With Other [address] [place] [address] [address] Forms Angina [place], [place], Pectoris) ( [facility]) [id number] [place] [address] [phone] Social History Tobacco Use Types Packs/Day Years [...] as of this encounter Plan of Treatment Scheduled Orders Name Type Priority Associated Diagnoses Order S [facility] Cardiac Rehab Card Rehab Routine Coronary Artery Once for 1 Occurrences Program Disease With Stable starting 07/21/2022 Angina (With Other until Forms Angina Pectoris) ([facility]) documented as of this encounter Visit Diagnoses Diagnosis Coronary Artery Disease With Stable Vivienne na (With Other Forms Angina Pectoris) ([facility]) documented in this encounter Additional Health Concerns Assessment Noted Time PHQ-9 Depression Total Score: 6 03/16/2022 9:52 AM CDT documented as of this encounter
--- OUTSIDE RECORDS SUMMARY | 2022-09-16 07:59 | XMS_ITS | Encounter Summary ---
:1955 Author Organization [facility] Address [address] [place] [address] Care Team Providers Name Role Phone Unavailable Primary Care Provider Unavailable Reason for Referral Outpatient (Routine) - Closed Specialty Diagnoses / Procedures Referred By Contact Refer red To Contact Diagnoses Coronary Artery Disease With Stable Angina (With Other Forms Angina Pectoris) ([facility]) Benja Fry M.D. [facility] Procedures Cardiac Rehab Program [address], [address] [place], [place] [address] Referral ID Status Reason Start Date Expiration Date Visits Requ ested Visits Authorized [id number] Closed 03/12/2022 03/12/2023 36 36 Reason for Visit Outpatient (Routine) - Closed Specialty Diagnoses / Procedures Referred By Contact Refer red To Contact Diagnoses Coronary Artery Disease With Stable Angina (With Other Forms Angina Pectoris) ([facility]) [facility]. [facility] Procedures Cardiac Rehab Program [address], [address] [place], [place] [address] Referral ID Status Reason Start Date Expiration Date Visits Requ ested Visits Authorized [id number] Closed 03/12/2022 03/12/2023 36 36 Encounter Details Date Type Department Care Team Description 08/13/2022 Hospital Encounter Department of Cardiac Benja Fry Coronary Artery Rehabilitation ashlee Palomo M.D. 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 [address], Angina (With Other [address] [place] [address] [address] Forms Angina [place], [place], Pectoris) ( [facility]) [id number] [place] [address] [phone] Social History Tobacco Use Types Packs/Day Years [...] Name Type Priority Associated Diagnoses Order S [facility] Cardiac Rehab Card Rehab Routine Coronary Artery Once for 1 Occurrences Program Disease With Stable starting 08/13/2022 Angina (With Other until 05/2022 Forms Angina Pectoris) ([facility]) documented as of this encounter Visit Diagnoses Diagnosis Coronary Artery Disease With Stable Vivienne na (With Other Forms Angina Pectoris) ([facility]) documented in this encounter Additional Health Concerns Assessment Noted Time PHQ-9 Depression Total Score: 6 03/16/2022 9:52 AM CDT documented as of this encounter
--- OUTSIDE RECORDS SUMMARY | 2022-09-16 07:59 | XMS_ITS | Encounter Summary ---
:1955 Author Organization [facility] Address [address] [place] [address] Care Team Providers Name Role Phone Unavailable Primary Care Provider Unavailable Reason for Referral Outpatient (Routine) - Closed Specialty Diagnoses / Procedures Referred By Contact Refer red To Contact Diagnoses Coronary Artery Disease With Stable Angina (With Other Forms Angina Pectoris) ([facility]) Benja Fry M.D. [facility] Procedures Cardiac Rehab Program [address] [place], [place] [address] Referral ID Status Reason Start Date Expiration Date Visits Requ ested Visits Authorized [id number] Closed 03/12/2022 03/12/2023 36 36 Reason for Visit Outpatient (Routine) - Closed Specialty Diagnoses / Procedures Referred By Contact Refer red To Contact Diagnoses Coronary Artery Disease With Stable Angina (With Other Forms Angina Pectoris) ([facility]) Benja Fry M.D. [facility] Procedures Cardiac Rehab Program [address] [place], [place] [address] Referral ID Status Reason Start Date Expiration Date Visits Requ ested Visits Authorized [id number] Closed 03/12/2022 03/12/2023 36 36 Encounter Details Date Type Department Care Team Description 06/30/2022 Hospital Encounter Department of Cardiac Benja Fry Coronary Artery Rehabilitation ashlee Palomo M.D. 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 [address], Angina (With Other [id number] [place] [address] [address] Forms Angina [place], [place], Pectoris) ( [facility]) [id number] [place] [address] [phone] Social History Tobacco Use Types Packs/Day Years [...] Name Type Priority Associated Diagnoses Order S [facility] Cardiac Rehab Card Rehab Routine Coronary Artery Once for 1 Occurrences Program Disease With Stable starting 06/30/2022 Angina (With Other until Forms Angina Pectoris) ([facility]) documented as of this encounter Visit Diagnoses Diagnosis Coronary Artery Disease With Stable Vivienne na (With Other Forms Angina Pectoris) ([facility]) documented in this encounter Additional Health Concerns Assessment Noted Time PHQ-9 Depression Total Score: 6 03/16/2022 9:52 AM CDT documented as of this encounter
--- OUTSIDE RECORDS SUMMARY | 2022-09-16 07:59 | XMS_ITS | Encounter Summary ---
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 [facility] Procedures Cardiac Rehab Program [address], [address] [place], [place] [address] Referral ID Status Reason Start Date Expiration Date Visits Requ ested Visits Authorized [id number] Closed 03/12/2022 03/12/2023 36 36 Encounter Details Date Type Department Care Team Description 07/19/2022 Hospital Encounter Department of Cardiac Benja Fry Coronary Artery Rehabilitation ashlee Palomo M.D. Disease With Stable [place], [facility]ejay [address], Angina (With Other [address] [place] [address] [address] Forms Angina [place], [place], Pectoris) ( [facility]) [id number] [place] [id number] [phone] Social History Tobacco Use Types Packs/Day Years [...] Name Type Priority Associated Diagnoses Order S [place] Cardiac Re[facility] Card Rehab Routine Coronary Artery Once for 1 Occurrences Program Disease With Stable starting 07/19/2022 Angina (With Other until 10/2022 Forms Angina Pectoris) ([facility]) documented as of this encounter Visit Diagnoses Diagnosis Coronary Artery Disease With Stable Vivienne na (With Other Forms Angina Pectoris) ([facility]) documented in this encounter Additional Health Concerns Assessment Noted Time PHQ-9 Depression Total Score: 6 03/16/2022 9:52 AM CDT documented as of this encounter
--- OUTSIDE RECORDS SUMMARY | 2022-09-16 07:59 | XMS_ITS | Encounter Summary ---
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 [facility] Procedures Cardiac Rehab Program [address], [address] [place], [place] [address] Referral ID Status Reason Start Date Expiration Date Visits Requ ested Visits Authorized [id number] Closed 03/12/2022 03/12/2023 36 36 Encounter Details Date Type Department Care Team Description 08/04/2022 Hospital Encounter Department of Cardiac Benja Fry Coronary Artery Rehabilitation ashlee Palomo M.D. Disease With Stable [place], [facility] deej[facility] [address], Angina (With Other [address] [place] [address] [address] Forms Angina [place], [place], Pectoris) ( [facility]) [id number] [place] [id number] [phone] Social History Tobacco Use Types Packs/Day Years [...] Name Type Priority Associated Diagnoses Order S [facility] Cardiac Rehab Card Rehab Routine Coronary Artery Once for 1 Occurrences Program Disease With Stable starting 08/04/2022 Angina (With Other until Forms Angina Pectoris) ([facility]) documented as of this encounter Visit Diagnoses Diagnosis Coronary Artery Disease With Stable Vivienne na (With Other Forms Angina Pectoris) ([facility]) documented in this encounter Additional Health Concerns Assessment Noted Time PHQ-9 Depression Total Score: 6 03/16/2022 9:52 AM CDT documented as of this encounter
--- OUTSIDE RECORDS SUMMARY | 2022-09-16 07:59 | XMS_ITS | Encounter Summary ---
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 [facility] Procedures Cardiac Rehab Program [address], [address] [place], [place] [address] Referral ID Status Reason Start Date Expiration Date Visits Requ ested Visits Authorized [id number] Closed 03/12/2022 03/12/2023 36 36 Encounter Details Date Type Department Care Team Description 07/16/2022 Hospital Encounter Department of Cardiac Benja Fry Coronary Artery Rehabilitation ashlee Palomo M.D. Disease With Stable [place], [facility] de[facility] [address], Angina (With Other [address] [place] [address] [address] Forms Angina [place], [place], Pectoris) ( [facility]) [id number] [place] [address] [phone] Social History Tobacco Use Types Packs/Day Years [...] Name Type Priority Associated Diagnoses Order S [facility] Cardiac Rehab Card Rehab Routine Coronary Artery Once for 1 Occurrences Program Disease With Stable starting 07/16/2022 Angina (With Other until 07/2022 Forms Angina Pectoris) ([facility] [...]
--- OUTSIDE RECORDS SUMMARY | 2022-09-16 07:59 | XMS_ITS | Encounter Summary ---
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 [facility] Procedures Cardiac Rehab Program [address], [address] [place], [place] [address] Referral ID Status Reason Start Date Expiration Date Visits Requ ested Visits Authorized [id number] Closed 03/12/2022 03/12/2023 36 36 Encounter Details Date Type Department Care Team Description 08/11/2022 Hospital Encounter Department of Cardiac Benja Fry Coronary Artery Rehabilitation ashlee Palomo M.D. Disease With Stable [place], [facility] [employer] [address], Angina (With Other [address] [place] [address] [address] Forms Angina [place], [place], Pectoris) ( [facility]) [id number] [place] [address] [phone] Social History Tobacco Use Types Packs/Day Years [...] Name Type Priority Associated Diagnoses Order S [facility] Cardiac Rehab Card Rehab Routine Coronary Artery Once for 1 Occurrences Program Disease With Stable starting 08/11/2022 Angina (With Other until 03/2022 Forms Angina Pectoris) ([facility]) documented as of this encounter Visit Diagnoses Diagnosis Coronary Artery Disease With Stable Vivienne na (With Other Forms Angina Pectoris) ([facility]) documented in this encounter Additional Health Concerns Assessment Noted Time PHQ-9 Depression Total Score: 6 03/16/2022 9:52 AM CDT documented as of this encounter
--- OUTSIDE RECORDS SUMMARY | 2022-09-16 07:59 | XMS_ITS | Encounter Summary ---
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 [facility] Procedures Cardiac Rehab Program [address], [address] [place], [place] [address] Referral ID Status Reason Start Date Expiration Date Visits Requ ested Visits Authorized [id number] Closed 03/12/2022 03/12/2023 36 36 Encounter Details Date Type Department Care Team Description 08/25/2022 Hospital Encounter Department of Cardiac Benja Fry Coronary Artery Rehabilitation ashlee Palomo M.D. Disease With Stable [place], [facility] deejay [address], Angina (With Other [address] [place] [address] [address] Forms Angina [place], [place], Pectoris) ( [facility]LY [facility]) [id number] [place] [id number] Social History Tobacco Use Types Packs/Day Years [...] encounter Progress Notes Chau Sow CCRP - 08/25/2022 8:00 AM CDT Cardiac Rehab Individualized Treatment Plan (ITP) Mr. Chowdary (66 y.o., : 1955) was referred to the [facility] Cardiac Rehab Program and has completed 36 sessions. Medical Record Number (MRN): [id number] Encounter Date: 08/25/2022 PCP: No primary care provider on file. Referring Provider and Drier Tender 03/16/[address] Yohan Gannon Prescribed Sessions 36 Program Information 03/16/2022 Program Type CR Phase II - Center Based Referral Date 03/03/2022 Primary Diagnosis PCI Date 03/02/2022 Secondary Diagnosis PCI PCI Date 01/13/2022 Enrollment Date 03/16/2022 Risks 03/16/2022 AACVPR Risk Low ECHO Date 03/03/2022 Ejection Fraction (EF) % 66 % Symptoms: Symptoms 03/16/2022 06/01/2022 06/29/2022 08/03/2022 08/31/2022 Charting Type Initial Assessment Reassessment Reassessment Reassessment Final Assessment Kenny Dyspnea 2 - Slight 2 - Slight 2 - Slight 2 - Slight 2 - Slight Cardiovascular Symptoms Claudication;Fatigue;Shortness of Breath;Lightheadedness Claudication;Shortness of Breath;Lightheadedness;Fatigue Claudication;Shortness of Breath;Fatigue;Lightheadedness Claudication;Shortness of Breath;Fatigue;Lightheadedness Fatigue Claudication Scale 4 - Moderate Claudication (significant, but able to keep walking) 3 - Mild Claudication (easily forgot about) 2 - Onset of Claudication Pain 2 - Onset of Claudication Pain 2 - Onset of Claudication Pain Generalized Edema None None None None None Right Lower Extremity Edema None None None None None Left Lower Extremity Edema None None None None None Circulation Edema No No No No No Edema Severity None None None None None Comments - PAD was diagnosed and procedure completed early May; some leg pain is still noted but heis able to walk further without the need to stop PAD sx have improved; able to walk further without the need for rest - - Exercise Assessment Vital Signs 03/16/2022 06/01/2022 06/29/2022 08/03/2022 08/31/2022 Source ECG ECG ECG ECG ECG Heart Rate 72 103 81 80 97 Source Pulse oximetry Pulse oximetry Pulse oximetry Pulse oximetry Pulse oximetry Cardiac Rhythm SR;SB SR SR;SB SR;SB SR Ectopy PVCs PVCs PVCs PVCs PVCs Ectopy Frequency Rare Rare Rare Rare Rare Six Minute Walk Test (6MWT) 03/16/2022 08/31/2022 Total Distance Walked (Meters) 228.6 609.6 Estimated METs 2.19 3.91 % OF PREDICTED DISTANCE 42.83 % 0 % Comments stood and stopped; did not sit; needed to due to claudication discomfort that went away with stopping no need to stop during d/c 6 MWT DASI Calculations 03/16/2022 08/31/2022 Estimated V02 Peak 23.12 23.12 Estimated MET Level 6.61 6.61 IPAQ 03/16/2022 08/31/2022 MET-mins/week 278 [id number] Exercise Session 03/16/2022 06/01/2022 06/29/2022 08/03/2022 08/31/2022 Session # 1 5 16 26 36 Peak METs 2.1 2.5 2.5 2.23 4.09 Assessment 03/16/2022 06/01/2022 06/29/2022 08/03/2022 08/31/2022 Exercise Stage of Change Preparation Action Action Action Action Assistive Device None None None None None Do you exercise routinely? No No No No No Do you perform strength training? No No No No No Exercise Limitations Yes Yes Yes Yes Yes Limitation Description claudication like sx limit walking progression - - - - Action Taken will take rest breaks as needed PAD procedure completed; able to walk on TM with no rest breaks - - - Fall Risk Assessment 03/16/2022 08/31/2022 Have you fallen within the last year or do you fear you might fall? No No Do you use an assisted device to walk? (Walker, cane, wheelchair, crutch) No No Today, do you feel any of the following? Weak, dizzy, shaky, or unsteady? No No Have you taken any medication within the last 6 hours which may make you feel drowsy? Such as sleep,pain, or anxiety medication No No Exercise Plan Exercise Prescription 03/16/2022 06/01/2022 06/29/2022 08/03/2022 08/31/2022 Frequency 3-5 sessions per week 3-5 sessions per week 3-5 sessions per week 3-5 sessions per week 3-5 sessions per week Intensity Work at a level that is comfortable but also challenging Work at a level that is comfortable but also challenging Work at a level that is comfortable but also challenging Work at a level thatis comfortable but also challenging Work at a level that is comfortable but also challenging Target heart rate (pulse): 100-110 100-110 100-110 100-110 100-110 Rating of Perceived Exertion range (RPE): 11-14 11-14 11-14 -14 -14 Rating of Perceived Dyspnea (Kenny Dyspnea): -01/14-01/14-01/14-01/14-01/14 METS: 2.1-3.1 2.5-3.5 2.5-3.5 2.5-3.5 3.0-4.0 Maintain SpO2 at this percentage: 97 97 97 97 97 Treadmill Speed: 1.5 1.6 1.6 1.6 1.6 Treadmill Grade: 0 0 0 0 0 Duration Warm-up minutes;Aerobic exercise minutes;Increase 1-5 minutes each session, as tolerated Warm-up minutes;Aerobic exercise minutes;Increase 1-5 minutes each session, as tolerated Warm-up minutes;Aerobic exercise minutes;Increase 1-5 minutes each session, as tolerated Warm-up minutes;Aerobic exercise minutes;Increase 1-5 minutes each session, as tolerated Warm-up minutes;Aerobic exercise minutes;Increase 1-5 minutes each session, as tolerated Warm Up Minutes: 2-3 2-3 2-3 2-3 2-3 Aerobic exercise minutes: 30 45 45 45 45 Cool Down minutes: 2-3 2-3 2-3 2-3 2-3 Gradually progress to this many minutes per week: 150 150 150 150 150 Goal minutes: 55 55 55 55 55 Type Arm Ergometer;Recumbent [...] Moderateintensity interval training Moderate intensity interval training Moderate intensity interval [...] this many minutes: 55 55 55 55 55 Increase by this many METS: 3.5 3.5 3.5 3.5 3.5 Flexibility and Balance Stretch major muscle groups daily Stretch major muscle groups daily Stretch major muscle groups daily Stretch major muscle groups daily Stretch major muscle groups daily Strength Training Calisthenics Calisthenics Calisthenics Calisthenics Calisthenics Reps: 10 10 10 10 10 Sets: 1 1 1 1 1 Other Exercise Avoid [...] day above baseline;Shopping;Take the stairs;Walk for transportation Avoid prolonged sitting;Gardening/Yardwork/Housework;Farm Chores;Pedometer: 2,500 steps per day above baseline;Shopping;Take the stairs;Walkfor transportation Plan 03/16/2022 06/01/2022 06/29/2022 08/03/2022 08/31/2022 Charting Type Initial Assessment Reassessment Reassessment Reassessment Final Assessment Goals Compliance to on-site program;Compliance to [...] Toward Goals 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; 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 but is able to get things done 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; 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sx but is able to get things done 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; 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 but is able to get things done 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; 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 but is able to get things done 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; 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 but is able to get things done Activity Education ACTIVITY LOG [id number];EXERCISE AND PHYSICAL ACTIVITY GUIDELINES FOR PEOPLE WITH HEART DISEASE XB9100-11;EXERCISE PROGRAM GUIDELINES WQ5364 ACTIVITY LOG [id number];EXERCISE AND PHYSICAL ACTIVITY GUIDELINES FOR PEOPLE WITH HEART DISEASE SL9951-36;EXERCISE PROGRAM GUIDELINES ZM0725 ACTIVITY LOG [id number];EXERCISE AND PHYSICAL ACTIVITY GUIDELINES FOR PEOPLE WITH HEART DISEASE FW0412-73;EXERCISEPROGRAM GUIDELINES NR4056 ACTIVITY LOG [id number];EXERCISE AND PHYSICAL ACTIVITY GUIDELINES FOR PEOPLE WITH HEART DISEASE UL4444-09;EXERCISE PROGRAM GUIDELINES NG3095 ACTIVITY LOG [id number];EXERCISE AND PHYSICAL ACTIVITY GUIDELINES FOR PEOPLE WITH HEART DISEASE WR8326-52;EXERCISE PROGRAM GUIDELINES SH2049 Comments - PAD procedure in early May; able to walk on TM without the need for 3 rest breaks as it was prior to procedure no change PAD is not as limiting as it was before procedure; able to walk further distances without issue no change; no need to stop for 6 MWT Nutrition Assessment Vital Signs 03/16/2022 06/01/2022 06/29/2022 08/03/2022 08/31/2022 Height 172.7 cm 172.7 cm 172.7 cm 172.7 cm 172.7 cm Weight 86.183 kg - - - - BMI (Calculated) 28.9 - - - - Assessment 03/16/2022 06/01/2022 06/29/2022 08/03/2022 08/31/2022 Nutrition Stage of Change Maintenance Maintenance Maintenance Maintenance Maintenance Dietary Recommendations Low Salt;Low Fat/ Low Cholesterol Low Salt;Low Fat/ Low Cholesterol Low Salt;Low Fat/ Low Cholesterol Low Salt;Low Fat/ Low Cholesterol Low Salt;Low Fat/ Low Cholesterol Low Salt Amount 2000 mg 2000 mg 2000 mg 2000 mg 2000 mg Appetite Good Good Good Good Good Social History Substance and Sexual Activity Alcohol Use Not on file Nutrition Plan Plan 03/16/2022 06/01/2022 06/29/2022 08/03/2022 08/31/2022 Charting Type Initial Assessment Reassessment Reassessment Reassessment Final Assessment Goals Increase fruit intake;Increase vegetable intake;Decrease [...] fruit intake;Increase vegetable intake;Decrease overall portions;Compliance with dietaryguidelines;Normalize appetite;Reduce saturated fat intake;Limit sodium intake Goal Weight no goal weight set on initial session no goal weight set on initial session no goal weight set on initial session no goal weight set on initial session no goal weight set on initial session Modify weight by Decrease;Percent (%) Decrease;Percent (%) Decrease;Percent (%) Decrease;Percent (%)Decrease;Percent (%) Percent (%) 5 % 5 % 5 % 5 % 5 [...] Nutrition Education LOWERING HIGH CHOLESTEROL THROUGH DIET [id number];BIODIESEL DIVISION MANAGER CONSULT/CLASS LOWERING HIGH CHOLESTEROL THROUGH DIET RU3882-52;BIODIESEL DIVISION MANAGER CONSULT/CLASS LOWERING HIGH CHOLESTEROL THROUGH DIET RF2032-10;BIODIESEL DIVISION MANAGER CONSULT/CLASS LOWERING HIGH CHOLESTEROL THROUGH DIET ZC8534-33;BIODIESEL DIVISION MANAGER CONSU LT/CLASS LOWERING HIGH CHOLESTEROL THROUGH DIET EN1446-92;BIODIESEL DIVISION MANAGER CONSULT/CLASS Comments - no change no change no change no change Psychosocial Assessment PHQ-9 03/16/2022 Charting Type Initial Assessment PHQ-9 Score 6 Interpretation Mild depression [facility] 03/16/2022 Total Score 20 Assessment 03/16/2022 06/01/2022 06/29/2022 08/03/2022 08/31/2022 Psychosocial Stage of Change Maintenance Maintenance Maintenance Maintenance Maintenance Current Medication Therapy No No No No No Support Systems Spouse;Significant other;Children;Family members - - - - Patient Stress Factors Health changes Health changes Health changes Health changes Health changes Needs Expressed Denies Denies Denies Denies Denies Psychosocial Plan Plan 03/16/2022 06/01/2022 06/29/2022 08/03/2022 08/31/2022 Charting Type Initial Assessment Reassessment Reassessment Reassessment Final Assessment Goals Verbalize appropriate coping skills;Identify a [...] on TM; able to do 20 min no change Other Core Components Hypertension Assessment Vital Signs 03/16/2022 06/01/2022 06/29/2022 08/03/2022 08/31/2022 BP 130/68 116/74 146/78 120/66 122/70 BP Location Left arm;Upper Left arm;Upper Left arm;Upper Left arm;Upper Left arm;Upper Assessment 03/16/2022 06/01/2022 06/29/2022 08/03/2022 08/31/2022 Hypertension Stage of Change Action Action Action Action Action History of Hypertension Yes Yes Yes Yes Yes Current Medication Therapy Yes Yes Yes Yes Yes Hypertension Plan Plan 03/16/2022 06/01/2022 06/29/2022 08/03/2022 08/31/2022 Charting Type Initial Assessment Reassessment Reassessment Reassessment Final Assessment Goals Stable BP response;BP at physician [...] Hypertension Education BLOOD PRESSURE RECORD WALLET CARD VA2411-55;HIGH BLOOD PRESSURE (HYPERTENSION) FW4979;MANAGING CHOLESTEROL SODIUM AND TRIGLYCERIDES IA2597-02 BLOOD PRESSURE RECORD WALLET CARD BF3201-80;HIGH BLOOD PRESSURE (HYPERTENSION) IT0610;MANAGING CHOLESTEROL SODIUM AND TRIGLYCERIDES RB5816-50 BLOOD PRESSURE RECORD WALLET CARD [id number];HIGH BLOOD PRESSURE (HYPERTENSION) VI4655;MANAGING CHOLESTEROL SODIUM AND TRIGLYCERIDES RB5569-63 BLOOD PRESSURE RECORD WALLET CARD HI5989-45;HIGH BLOOD PRESSURE (HYPERTENSION) LW0149;MANAGING CHOLESTEROL SODIUM AND TRIGLYCERIDES OU7797-57 BLOOD PRESSURERECORD WALLET CARD FH5607-67;MANAGING CHOLESTEROL SODIUM AND TRIGLYCERIDES OM6122-07 Comments - no change no change no change; BP WNL in CR no change; BP on higher end of normal Hyperlipidemia Assessment Assessment 03/16/2022 06/01/2022 06/29/2022 08/03/2022 08/31/2022 History of Hyperlipidemia Yes Yes Yes Yes Yes Current Medication Therapy Yes Yes Yes Yes Yes Hyperlipidemia Stage of Change Maintenance Maintenance Maintenance Maintenance Maintenance Lipids No lab values to display. Hyperlipidemia Plan Plan 03/16/2022 06/01/2022 06/29/2022 08/03/2022 08/31/2022 Charting Type Initial Assessment Reassessment Reassessment Reassessment Final Assessment Goals Improve Lipids;Lipids in optimal range;Understand current Lipid profile Improve Lipids;Lipids in optimal range;Understand current Lipid profile Improve Lipids;Lipids in optimal range;Understand current Lipid profile Improve Lipids;Lipids in optimal range;Understand current Lipid profile Improve L ipids;Lipids in optimal range;Understand current Lipid profile Interventions Therapist Discussion;Project Finance Analyst consult/class;Review lipid profile;Discussion on statins Therapist Discussion;Project Finance Analyst consult/class;Review lipid profile;Discussion on statins Therapist Di scussion;Project Finance Analyst consult/class;Review lipid profile;Discussion on statins Therapist Discussion;Project Finance Analyst consult/class;Review lipid profile;Discussion on statins Therapist Discussion;Project Finance Analyst consult/class;Review lipid profile;Discussion on statins Progress Toward Goals tolerating statin well tolerating statin well tolerating statin well tolerating statin well tolerating statin well Hyperlipidemia Education LOWERING HIGH CHOLESTEROL THROUGH DIET EP1306-39 LOWERING HIGH CHOLESTEROL THROUGH DIET HL2582-32 LOWERING HIGH CHOLESTEROL THROUGH DIET PQ9218-60 LOWERING HIGH CHOLESTEROL THROUGH DIET JC5629-94 LOWERING HIGH CHOLESTEROL THROUGH DIET DS3743-70 Comments - no change no change no change no change Diabetes Assessment Lab Results None Diabetes Plan Plan 03/16/2022 06/01/2022 06/29/2022 08/03/2022 08/31/2022 Charting Type Initial Assessment Reassessment Reassessment Reassessment Final Assessment Tobacco Assessment Smoking History/Assessment 03/16/2022 Smoking Status Former (greater than 6 months) Quit Date 11/15/2005 Smoking Types cigarettes Packs Per Day 1 Years 32 Assessment 03/16/2022 06/01/2022 06/29/2022 08/03/2022 08/31/2022 Charting Type Initial Assessment Reassessment Reassessment Reassessment Final Assessment Tobacco Stage of Change Maintenance - - - - Exposure to second hand smoke None Identified None Identified None Identified None Identified None Identified Social History Substance and Sexual Activity Drug Use Not on file Drug Abuse Screening Test (DAST) 03/16/2022 06/01/2022 06/29/2022 08/03/2022 08/31/2022 How many times in the past year have you used a recreational drug or used a prescription medication for nonmedical reasons? Never Never Never Never Never Tobacco Plan Plan 03/16/2022 06/01/2022 06/29/2022 08/03/2022 08/31/2022 Charting Type Initial Assessment Reassessment Reassessment Reassessment Final Assessment Progress Toward Goals has been smoke free since 2005 and it is going well - - - - Heart Failure Assessment Assessment 03/16/2022 06/01/2022 06/29/2022 08/03/2022 08/31/2022 Generalized Edema None None None None None Right Lower Extremity Edema None None None None None Left Lower Extremity Edema None None None None None Circulation Edema No No No No No Edema Severity None None None None None Heart Failure Plan Plan 03/16/2022 06/01/2022 06/29/2022 08/03/2022 08/31/2022 Charting Type Initial Assessment Reassessment Reassessment Reassessment Final Assessment Medication Compliance Assessment Assessment 03/16/2022 06/01/2022 06/29/2022 08/03/2022 08/31/2022 Med Compliance Stage of Change Maintenance Maintenance Maintenance Maintenance Maintenance Medication Compliance Plan Plan 03/16/2022 06/01/2022 06/29/2022 08/03/2022 08/31/2022 Charting Type Initial Assessment Reassessment Reassessment Reassessment Final Assessment Goals Medication compliance;Knowledge of medication (Comment) Medication compliance;Knowledge of medication (Comment) Medication compliance;Knowledge of medication (Comment) Medication compliance;Knowledge of medication (Comment) Medication compliance;Knowledge of medication (Comment) Interventions Therapist Discussion;Medication review Therapist Discussion;Medication review Therapist Discussion;Medication review Therapist Discussion;Medication review Therapist Discussion;Medicationreview Comments reviewed on initial session - - - - Fletcher Education/Other Education: Medications were reviewed every visit. documented in this encounter Plan of Treatment Scheduled Orders Name Type Priority Associated Diagnoses Order S chedule Cardiac Rehab Card Rehab Routine Coronary Artery Once for 1 Occurrences Program Disease With Stable starting 08/25/2022 Angina (With Other until Forms Angina Pectoris) [...]
--- OUTSIDE RECORDS SUMMARY | 2022-09-16 07:59 | XMS_ITS | Encounter Summary ---
:[address] [facility] Address [address] [place] [address] Care Team Providers Name Role Phone Unavailable Primary Care Provider Unavailable Reason for Referral Outpatient (Routine) - Closed Specialty Diagnoses / Procedures Referred By Contact Refer red To Contact Diagnoses Coronary Artery Disease With Stable Angina (With Other Forms Angina Pectoris) ([facility]) Benja Fry M.D. [facility] Procedures Cardiac Rehab Program [address], [address] [place], [place] [address] Referral ID Status Reason Start Date Expiration Date Visits Requ ested Visits Authorized [id number] Closed 03/12/2022 03/12/2023 36 36 Reason for Visit Outpatient (Routine) - Closed Specialty Diagnoses / Procedures Referred By Contact Refer red To Contact Diagnoses Coronary Artery Disease With Stable Angina (With Other Forms Angina Pectoris) ([facility]) [facility]. [facility] Procedures Cardiac Rehab Program [address], [address] [place], [place] [address] Referral ID Status Reason Start Date Expiration Date Visits Requ ested Visits Authorized [id number] Closed 03/12/2022 03/12/2023 36 36 Encounter Details Date Type Department Care Team Description 07/09/2022 Hospital Encounter Department of Cardiac Benja Fry Coronary Artery Rehabilitation ashlee Palomo M.D. Disease With Stable [place], [facility] potato pancake [employer]er [address], [place]ina (With Other [address] [place] [address] [address] Forms Angina [place], [place], Pectoris) ( [facility]) [address] [place] [address] [phone] Social History Tobacco Use Types Packs/Day Years [...] Priority Associated Diagnoses Order S [facility] Cardiac Rehab Card Rehab Routine Coronary Artery Once for 1 Occurrences Program Disease With Stable starting 07/09/2022 Angina (With Other until 12/2021 Forms Angina Pectoris) ([facility]) documented as of this encounter Visit Diagnoses Diagnosis Coronary Artery Disease With Stable Vivienne na (With Other Forms Angina Pectoris) ([facility]) documented in this encounter Additional Health Concerns Assessment Noted Time PHQ-9 Depression Total Score: 6 03/16/2022 9:52 AM CDT documented as of this encounter
--- OUTSIDE RECORDS SUMMARY | 2022-09-16 07:59 | XMS_ITS | Encounter Summary ---
:1955 Author Organization [facility] Address [address] [place] [address] Care Team Providers Name Role Phone Unavailable Primary Care Provider Unavailable Reason for Referral Outpatient (Routine) - Closed Specialty Diagnoses / Procedures Referred By Contact Refer red To Contact Diagnoses Coronary Artery Disease With Stable Angina (With Other Forms Angina Pectoris) ([facility]) Benja Fry M.D. [facility] Procedures Cardiac Rehab Program [address], [address] [place], [place] [address] Referral ID Status Reason Start Date Expiration Date Visits Requ ested Visits Authorized [id number] Closed 03/12/2022 03/12/2023 36 36 Reason for Visit Outpatient (Routine) - Closed Specialty Diagnoses / Procedures Referred By Contact Refer red To Contact Diagnoses Coronary Artery Disease With Stable Angina (With Other Forms Angina Pectoris) ([facility]) [facility] Procedures Cardiac Rehab Program [address], [address] [place], [place] [address] Referral ID Status Reason Start Date Expiration Date Visits Requ ested Visits Authorized [id number] Closed 03/12/2022 03/12/2023 36 36 Encounter Details Date Type Department Care Team Description 08/02/2022 Hospital Encounter Department of Cardiac Benja Fry Coronary Artery Rehabilitation ashlee Palomo M.D. Disease With Stable [place], [facility] deejay [address], Angina (With Other [address] [place] [address] [address] Forms Angina [place], [place], Pectoris) ( [facility]) [address] [place] [address] [phone] Social History Tobacco Use Types Packs/Day Years [...] Name Type Priority Associated Diagnoses Order S [facility] Cardiac Rehab Card Rehab Routine Coronary Artery Once for 1 Occurrences Program Disease With Stable starting 08/02/2022 Angina (With Other until Forms Angina Pectoris) ([facility]) documented as of this encounter Visit Diagnoses Diagnosis Coronary Artery Disease With Stable Vivienne na (With Other Forms Angina Pectoris) ([facility]) documented in this encounter Additional Health Concerns Assessment Noted Time PHQ-9 Depression Total Score: 6 03/16/2022 9:52 AM CDT documented as of this encounter
--- OUTSIDE RECORDS SUMMARY | 2022-09-16 07:59 | XMS_ITS | Encounter Summary ---
:1955 Author Organization [facility] Address [address] [place] [address] Care Team Providers Name Role Phone Unavailable Primary Care Provider Unavailable Reason for Referral Outpatient (Routine) - Closed Specialty Diagnoses / Procedures Referred By Contact Refer red To Contact Diagnoses Coronary Artery Disease With Stable Angina (With Other Forms Angina Pectoris) ([facility]) Benja Fry M.D. [facility] Procedures Cardiac Rehab Program [address], [address] [place], [place] [address] Referral ID Status Reason Start Date Expiration Date Visits Requ ested Visits Authorized [id number] Closed 03/12/2022 03/12/2023 36 36 Reason for Visit Outpatient (Routine) - Closed Specialty Diagnoses / Procedures Referred By Contact Refer red To Contact Diagnoses Coronary Artery Disease With Stable Angina (With Other Forms Angina Pectoris) ([facility]) [facility]. [facility] Procedures Cardiac Rehab Program [address], [address] [place], [place] [address] Referral ID Status Reason Start Date Expiration Date Visits Requ ested Visits Authorized [id number] Closed 03/12/2022 03/12/2023 36 36 Encounter Details Date Type Department Care Team Description 07/28/2022 Hospital Encounter Department of Cardiac Benja Fry Coronary Artery Rehabilitation ashlee Palomo M.D. Disease With Stable [place], [facility] deejay [address], Angina (With Other [address] [place] [address] [address] Forms Angina [facility], [place], Pectoris) ( [facility]) [address] [place] [address] [phone] Social History Tobacco Use Types Packs/Day Years [...] Name Type Priority Associated Diagnoses Order S [facility] Cardiac Rehab Card Rehab Routine Coronary Artery Once for 1 Occurrences Program Disease With Stable starting 07/28/2022 Angina (With Other until Forms Angina Pectoris) ([facility]) documented as of this encounter Visit Diagnoses Diagnosis Coronary Artery Disease With Stable Vivienne na (With Other Forms Angina Pectoris) ([facility]) documented in this encounter Additional Health Concerns Assessment Noted Time PHQ-9 Depression Total Score: 6 03/16/2022 9:52 AM CDT documented as of this encounter
--- OUTSIDE RECORDS SUMMARY | 2022-09-16 07:59 | XMS_ITS | Encounter Summary ---
:1955 Author Organization [facility] Address [address] [place] [address] Care Team Providers Name Role Phone Unavailable Primary Care Provider Unavailable Reason for Referral Outpatient (Routine) - Closed Specialty Diagnoses / Procedures Referred By Contact Refer red To Contact Diagnoses Coronary Artery Disease With Stable Angina (With Other Forms Angina Pectoris) ([facility]) Benja Fry M.D. [facility] Procedures Cardiac Rehab Program [address], [address] [place], [place] [address] Referral ID Status Reason Start Date Expiration Date Visits Requ ested Visits Authorized [id number] Closed 03/12/2022 03/12/2023 36 36 Reason for Visit Outpatient (Routine) - Closed Specialty Diagnoses / Procedures Referred By Contact Refer red To Contact Diagnoses Coronary Artery Disease With Stable Angina (With Other Forms Angina Pectoris) ([facility]) [facility]. [facility] Procedures Cardiac Rehab Program [address], [address] [place], [place] [address] Referral ID Status Reason Start Date Expiration Date Visits Requ ested Visits Authorized [id number] Closed 03/12/2022 03/12/2023 36 36 Encounter Details Date Type Department Care Team Description 08/06/2022 Hospital Encounter Department of Cardiac Benja Fry Coronary Artery Rehabilitation ashlee Palomo M.D. 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
--- OUTSIDE RECORDS SUMMARY | 2022-09-16 07:59 | XMS_ITS | Encounter Summary ---
:1955 Author Organization [facility] Address [address] [place] [address] Care Team Providers Name Role Phone Unavailable Primary Care Provider Unavailable Reason for Referral Outpatient (Routine) - Closed Specialty Diagnoses / Procedures Referred By Contact Refer red To Contact Diagnoses Coronary Artery Disease With Stable Angina (With Other Forms Angina Pectoris) ([facility]) Benja Fry M.D. [facility] Procedures Cardiac Rehab Program [address], [address] [place], [place] [address] Referral ID Status Reason Start Date Expiration Date Visits Requ ested Visits Authorized [id number] Closed 03/12/2022 03/12/2023 36 36 Reason for Visit Outpatient (Routine) - Closed Specialty Diagnoses / Procedures Referred By Contact Refer red To Contact Diagnoses Coronary Artery Disease With Stable Angina (With Other Forms Angina Pectoris) ([facility]) Benja Fry M.D. [facility] Procedures Cardiac Rehab Program [address], [address] [place], [place] [address] Referral ID Status Reason Start Date Expiration Date Visits Requ ested Visits Authorized [id number] Closed 03/12/2022 03/12/2023 36 36 Encounter Details Date Type Department Care Team Description 08/09/2022 Hospital Encounter Department of Cardiac Benja Fry Coronary Artery Rehabilitation ashlee Palomo M.D. Disease With Stable [place], 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) [address] [place] [address] [phone] Social History Tobacco Use Types Packs/Day Years [...] Name Type Priority Associated Diagnoses Order S [facility] Cardiac Rehab Card Rehab Routine Coronary Artery Once for 1 Occurrences Program Disease With Stable starting 08/09/2022 Angina (With Other until 01/2022 Forms Angina Pectoris) ([facility]) documented as of this encounter Visit Diagnoses Diagnosis Coronary Artery Disease With Stable Vivienne na (With Other Forms Angina Pectoris) ([facility]) documented in this encounter Additional Health Concerns Assessment Noted Time PHQ-9 Depression Total Score: 6 03/16/2022 9:52 AM CDT documented as of this encounter
--- OUTSIDE RECORDS SUMMARY | 2022-09-16 07:59 | XMS_ITS | Clinical Summary ---
:1955 Author Organization [facility] Address [address] [place] [address] Care Team Providers Name Role Phone Unavailable Primary Care Provider Unavailable Source Comments Patient records contain information from all sites at [facility]. For routine questions regarding patient records, call [phone] during business hours, M-F 8:00 AM - 5:00 PM Central Time. Record requests for emergency care only can be directed to [phone] at any time.[facility] Medications Medication Sig Dispensed Refills Start [...] Encounters Date Type Specialty Care Team Description 08/25/2022 Hospital Encounter Cardiovascular Benja Fry Gonzalez ry Artery Disease Hai Palomo Disease With Stable Angina (With Other For ms Angina Pectoris ) ([facility]) 08/23/2022 Hospital Encounter Cardiovascular Suze Fryil Gonzalez ry Artery Disease Hai Palomo Disease With Stable Angina (With Other For ms Angina Pectoris ) ([facility]) 08/13/2022 Hospital Encounter Cardiovascular Benja Fry Gonzalez ry Artery Disease Hai Palomo Disease With Stable Angina (With Other For ms Angina Pectoris ) ([facility]) 08/11/2022 Hospital Encounter Cardiovascular Poulose, Benja Gonzalez ry Artery Disease K, M.D. Disease With Stable Angina (With Other For ms Angina Pectoris ) ([facility]) 08/09/2022 Hospital Encounter Cardiovascular Poulose, Benja Gonzalez ry Artery Disease K, M.D. Disease With Stable Angina (With Other For ms Angina Pectoris ) ([facility]) 08/06/2022 Hospital Encounter Cardiovascular Poulose, Benja Gonzalez ry Artery Disease K, M.D. Disease With Stable Angina (With Other For ms Angina Pectoris ) ([facility]) 08/04/2022 Hospital Encounter Cardiovascular Poulose, Benja Gonzalez ry Artery Disease K, M.D. Disease With Stable Angina (With Other For ms Angina Pectoris ) ([facility]) 08/02/2022 Hospital Encounter Cardiovascular Poulose, Benja Gonzalez ry Artery Disease K, M.D. Disease With Stable Angina (With Other For ms Angina Pectoris ) ([facility]) 07/30/2022 Hospital Encounter Cardiovascular Poulose, Benja Gonzalez ry Artery Disease K, M.D. Disease With Stable Angina (With Other For ms Angina Pectoris ) ([facility]) 07/28/2022 Hospital Encounter Cardiovascular [place], Benja Gonzalez ry Artery Disease K, M.D. Disease With Stable Angina (With Other For ms Angina Pectoris ) ([facility]) 07/26/2022 Hospital Encounter Cardiovascular [place], Benja Gonzalez ry Artery Disease K, M.D. Disease With Stable Angina (With Other For ms Angina Pectoris ) ([facility]) 07/21/2022 Hospital Encounter Cardiovascular [place], Benja Gonzalez ry Artery Disease K, M.D. Disease With Stable Angina (With Other For ms Angina Pectoris ) ([facility]) 07/19/2022 Hospital Encounter Cardiovascular P[place], Benaj Gonzalez ry Artery Disease K, M.D. Disease With Stable Angina (With Other For ms Angina Pectoris ) ([facility]) 07/16/2022 Hospital Encounter Cardiovascular P[place], Benja Gonzalez ry Artery Disease K, M.D. Disease With Stable Angina (With Other For ms Angina Pectoris ) ([facility]) 07/14/2022 Hospital Encounter Cardiovascular P[place], Benja Gonzalez ry Artery Disease K, M.D. Disease With Stable Angina (With Other For ms Angina Pectoris ) ([facility]) 07/09/2022 Hospital Encounter Cardiovascular Poulose, Benja Gonzalez ry Artery Disease KRoopa. Disease With Stable Angina (With Other For ms Angina Pectoris ) ([facility]) 07/07/2022 Hospital Encounter Cardiovascular Poulose, Benja Gonzalez ry Artery Disease K MRubinaD. Disease With Stable Angina (With Other For ms Angina Pectoris ) ([facility]) 07/05/2022 Hospital Encounter Cardiovascular Poulose, Benja Gonzalez ry Artery Disease K MRubinaD. Disease With Stable Angina (With Other For ms Angina Pectoris ) ([facility]) 07/01/2022 Hospital Encounter Cardiovascular Poulose, Benja Gonzalez ry Artery Disease K MRubinaD. Disease With Stable Angina (With Other For ms Angina Pectoris ) ([facility]) 06/30/2022 Hospital Encounter Cardiovascular Poulose, Benja Gonzalez ry Artery Disease K M.D. Disease With Stable Angina (With Other For ms Angina Pectoris ) ([facility]) 06/25/2022 Hospital Encounter Cardiovascular Poulose, Benja Gonzalez ry Artery Disease K MRubinaD. Disease With Stable Angina (With Other For ms Angina Pectoris ) ([facility]) 06/25/2022 Clinical Cardiovascular Will, Scheduling Communication Disease Dipti R 06/18/2022 Hospital Encounter Cardiovascular Poulose, Benja Gonzalez ry Artery Disease KHai Disease With Stable Angina (With Other For ms Angina Pectoris ) ([facility]) from Last 3 Months Social History Tobacco Use Types Packs/Day Years Used Date Smoking Tobacco: Never Assessed Sex Assigned at Date Recorded Not on file Last Filed Vital Signs Vital Sign Reading Time Taken Comments Blood Pressure 122/70 08/31/2022 11:29 AM CDT Pulse - - Temperature - - Respiratory Rate - - Oxygen Saturation - - Inhaled Oxygen Concentration - - Weight 86.2 kg (190 lb) 03/16/2022 9:00 AM CDT Height 172.7 cm (5' 7.99) 08/31/2022 11:00 AM CDT Body Mass Index 28.89 03/16/2022 9:00 AM CDT Plan of Treatment Health Maintenance [...] Effective Dates Phone Addre ss Type Group [facility] [id number] 2018-Present [phone] [address] [place] [address]
--- OUTSIDE RECORDS SUMMARY | 2022-09-16 07:59 | XMS_ITS | Encounter Summary ---
:1955 Author Organization [facility] Address [address] [place] [address] Care Team Providers Name Role Phone Unavailable Primary Care Provider Unavailable Reason for Referral Outpatient (Routine) - Closed Specialty Diagnoses / Procedures Referred By Contact Refer red To Contact Diagnoses Coronary Artery Disease With Stable Angina (With Other Forms Angina Pectoris) ([facility]) Benja Fry M.D. [facility] Procedures Cardiac Rehab Program [address], [address] [place], [place] [address] Referral ID Status Reason Start Date Expiration Date Visits Requ ested Visits Authorized [id number] Closed 03/12/2022 03/12/2023 36 36 Reason for Visit Outpatient (Routine) - Closed Specialty Diagnoses / Procedures Referred By Contact Refer red To Contact Diagnoses Coronary Artery Disease With Stable Angina (With Other Forms Angina Pectoris) ([facility]) [facility]ja [facility]. [facility] Procedures Cardiac Rehab Program [address], [address] [place], [place] [address] Referral ID Status Reason Start Date Expiration Date Visits Requ ested Visits Authorized [id number] Closed 03/12/2022 03/12/2023 36 36 Encounter Details Date Type Department Care Team Description 07/05/2022 Hospital Encounter Department of Cardiac Benja Fry Coronary Artery Rehabilitation ashlee Palomo M.D. 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 [address], Angina (With Other [address] [place] [address] [address] Forms Angina [place], [place] [employer], Pectoris) ( [facility]) [address] [place] [address] [phone] Social History Tobacco Use Types Packs/Day Years [...] Name Type Priority Associated Diagnoses Order S [facility] Cardiac Rehab Card Rehab Routine Coronary Artery Once for 1 Occurrences Program Disease With Stable starting 07/05/2022 Angina (With Other until Forms Angina Pectoris) ([facility]) documented as of this encounter Visit Diagnoses Diagnosis Coronary Artery Disease With Stable Vivienne na (With Other Forms Angina Pectoris) ([facility]) documented in this encounter Additional Health Concerns Assessment Noted Time PHQ-9 Depression Total Score: 6 03/16/2022 9:52 AM CDT documented as of this encounter
--- OUTSIDE RECORDS SUMMARY | 2022-09-16 07:59 | XMS_ITS | Encounter Summary ---
:1955 Author Organization [facility] Address [address] [place] [address] Care Team Providers Name Role Phone Unavailable Primary Care Provider Unavailable Reason for Referral Outpatient (Routine) - Closed Specialty Diagnoses / Procedures Referred By Contact Refer red To Contact Diagnoses Coronary Artery Disease With Stable Angina (With Other Forms Angina Pectoris) ([facility]) Benja Fry M.D. [facility] Procedures Cardiac Rehab Program [address], [address] [place], [place] [address] Referral ID Status Reason Start Date Expiration Date Visits Requ ested Visits Authorized [id number] Closed 03/12/2022 03/12/2023 36 36 Reason for Visit Outpatient (Routine) - Closed Specialty Diagnoses / Procedures Referred By Contact Refer red To Contact Diagnoses Coronary Artery Disease With Stable Angina (With Other Forms Angina Pectoris) ([facility]) [facility]ja [facility]. [facility] Procedures Cardiac Rehab Program [address], [address] [place], [place] [address] Referral ID Status Reason Start Date Expiration Date Visits Requ ested Visits Authorized [id number] Closed 03/12/2022 03/12/2023 36 36 Encounter Details Date Type Department Care Team Description 07/07/2022 Hospital Encounter Department of Cardiac Benja Fry Coronary Artery Rehabilitation ashlee Palomo M.D. 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) [address] [place] [address] [phone] Social History Tobacco Use Types Packs/Day Years [...] Name Type Priority Associated Diagnoses Order S [facility] Cardiac Rehab Card Rehab Routine Coronary Artery Once for 1 Occurrences Program Disease With Stable starting 07/07/2022 Angina (With Other until Forms Angina Pectoris) ([facility]) documented as of this encounter Visit Diagnoses Diagnosis Coronary Artery Disease With Stable Vivienne na (With Other Forms Angina Pectoris) ([facility]) documented in this encounter Additional Health Concerns Assessment Noted Time PHQ-9 Depression Total Score: 6 03/16/2022 9:52 AM CDT documented as of this encounter
--- OUTSIDE RECORDS SUMMARY | 2022-09-16 07:59 | XMS_ITS | Encounter Summary ---
:1955 Author Organization [facility] Address [address] [place] [address] Care Team Providers Name Role Phone Unavailable Primary Care Provider Unavailable Reason for Referral Outpatient (Routine) - Closed Specialty Diagnoses / Procedures Referred By Contact Refer red To Contact Diagnoses Coronary Artery Disease With Stable Angina (With Other Forms Angina Pectoris) ([facility]) Benja Fry M.D. [facility] Procedures Cardiac Rehab Program [address], [address] [place], [place] [address] Referral ID Status Reason Start Date Expiration Date Visits Requ ested Visits Authorized [id number] Closed 03/12/2022 03/12/2023 36 36 Reason for Visit Outpatient (Routine) - Closed Specialty Diagnoses / Procedures Referred By Contact Refer red To Contact Diagnoses Coronary Artery Disease With Stable Angina (With Other Forms Angina Pectoris) ([facility]) [facility]. [facility] Procedures Cardiac Rehab Program [address], [address] [place], [place] [address] Referral ID Status Reason Start Date Expiration Date Visits Requ ested Visits Authorized [id number] Closed 03/12/2022 03/12/2023 36 36 Encounter Details Date Type Department Care Team Description 07/26/2022 Hospital Encounter Department of Cardiac Benja Fry Coronary Artery Rehabilitation ashlee Palomo M.D. Disease With Stable [place], [facility] deejay [address], Angina (With Other [address] [place] [address] [address] Forms Angina [place], [place], Pectoris) ( [facility]) [address] [place] [id number] Social History Tobacco Use Types Packs/Day Years [...] y.o., : 1955) was referred to the [facility] Cardiac Rehab Program and has completed 26 sessions. Medical Record Number (MRN): [id number] Encounter Date: 07/26/2022 PCP: No primary care provider on file. Referring Provider and [employer] Workers 03/16/[address] 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 but is able to get things done Activity Education ACTIVITY LOG [id number];EXERCISE AND PHYSICAL ACTIVITY GUIDELINES FOR PEOPLE WITH HEART DISEASE QH0772-36;EXERCISE PROGRAM GUIDELINES WK5481 ACTIVITY LOG [id number];EXERCISE AND PHYSICAL ACTIVITY GUIDELINES FOR PEOPLE WITH HEART DISEASE XS5613-34;EXERCISE PROGRAM GUIDELINES UH2033 ACTIVITY LOG DE5141;EXERCISE AND PHYSICAL ACTIVITY GUIDELINES FOR PEOPLE WITH HEART DISEASE XR3024-58;EXERCISEPROGRAM GUIDELINES EW4125 ACTIVITY LOG SK4052;EXERCISE AND PHYSICAL ACTIVITY GUIDELINES FOR PEOPLE WITH HEART DISEASE LX9225-22;EXERCISE PROGRAM GUIDELINES [id number] Comments - PAD procedure in early May; [...] Nutrition Education LOWERING HIGH CHOLESTEROL THROUGH DIET SN0796-28;YOUTH ASSOCIATE CONSULT/CLASS LOWERING HIGH CHOLESTEROL THROUGH DIET RF1646-38;YOUTH ASSOCIATE CONSULT/CLASS LOWERING HIGH CHOLESTEROL THROUGH DIET HS1267-72;YOUTH ASSOCIATE CONSULT/CLASS LOWERING HIGH CHOLESTEROL THROUGH DIET YP5173-47;YOUTH ASSOCIATE CONSU LT/CLASS Comments - no change no change no change Psychosocial Assessment PHQ-9 03/16/2022 Charting Type Initial Assessment PHQ-9 Score [address] [facility] 03/16/2022 Total Score 20 Assessment 03/16/2022 06/01/2022 [...] Hypertension Education BLOOD PRESSURE RECORD WALLET CARD VL8034-99;HIGH BLOOD PRESSURE (HYPERTENSION) TE1954;MANAGING CHOLESTEROL SODIUM AND TRIGLYCERIDES EF9088-23 BLOOD PRESSURE RECORD WALLET CARD XV4437-15;HIGH BLOOD PRESSURE (HYPERTENSION) KH6110;MANAGING CHOLESTEROL SODIUM AND TRIGLYCERIDES TF1239-75 BLOOD PRESSURE RECORD WALLET CARD RS2459-74;HIGH BLOOD PRESSURE (HYPERTENSION) LE1866;MANAGING CHOLESTEROL SODIUM AND TRIGLYCERIDES DU0166-41 BLOOD PRESSURE RECORD WALLET CARD TK6460-37;HIGH BLOOD PRESSURE (HYPERTENSION) GU4420;MANAGING CHOLESTEROL SODIUM AND TRIGLYCERIDES WI1781-47 Comments - no change no change no [...] optimal range;Understand current Lipid profile Interventions Therapist Discussion;Behavioral Health Aide consult/class;Review lipid profile;Discussion on statins Therapist Discussion;Behavioral Health Aide consult/class;Review lipid profile;Discussion on statins Therapist Ashely borjas;Behavioral Health Aide consult/class;Review lipid profile;Discussion on statins Therapist Discussion;Behavioral Health Aide consult/class;Review lipid profile;Discussion on statins Progress Toward Goals tolerating statin well tolerating statin well tolerating statin well tolerating statin well Hyperlipidemia Education LOWERING HIGH CHOLESTEROL THROUGH DIET YS0558-82 LOWERING HIGH CHOLESTEROL THROUGH DIET WF6881-56 LOWERING HIGH CHOLESTEROL THROUGH DIET EY6653-00 LOWERING HIGH CHOLESTEROL THROUGH DIET UA3188-53 Comments - no change no change no [...] Angina (With Other until Forms Angina Pectoris) ([facility]) documented as of this encounter Visit Diagnoses Diagnosis Coronary Artery Disease With Stable Vivienne na (With Other Forms Angina Pectoris) ([facility]) documented in this encounter Additional Health Concerns Assessment Noted Time PHQ-9 Depression Total Score: 6 03/16/2022 9:52 AM CDT documented as of this encounter
--- OUTSIDE RECORDS SUMMARY | 2022-09-16 07:59 | XMS_ITS | Encounter Summary ---
:1955 Author Organization [facility] Address [address] [place] [address] Care Team Providers Name Role Phone Unavailable Primary Care Provider Unavailable Reason for Referral Outpatient (Routine) - Closed Specialty Diagnoses / Procedures Referred By Contact Refer red To Contact Diagnoses Coronary Artery Disease With Stable Angina (With Other Forms Angina Pectoris) ([facility]) Benja Fry M.D. [facility] Procedures Cardiac Rehab Program [address], [address] [place], [place] [address] Referral ID Status Reason Start Date Expiration Date Visits Requ ested Visits Authorized [id number] Closed 03/12/2022 03/12/2023 36 36 Reason for Visit Outpatient (Routine) - Closed Specialty Diagnoses / Procedures Referred By Contact Refer red To Contact Diagnoses Coronary Artery Disease With Stable Angina (With Other Forms Angina Pectoris) ([facility]) [facility]. [facility] Procedures Cardiac Rehab Program [address], [address] [place], [place] [address] Referral ID Status Reason Start Date Expiration Date Visits Requ ested Visits Authorized [id number] Closed 03/12/2022 03/12/2023 36 36 Encounter Details Date Type Department Care Team Description 07/01/2022 Hospital Encounter Department of Cardiac Benja Fry Coronary Artery Rehabilitation ashlee Palomo M.D. 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
--- OUTSIDE RECORDS SUMMARY | 2022-09-16 07:59 | XMS_ITS | Encounter Summary ---
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 [facility] Procedures Cardiac Rehab Program [address], [address] [place], [place] [address] Referral ID Status Reason Start Date Expiration Date Visits Requ ested Visits Authorized [id number] Closed 03/12/2022 03/12/2023 36 36 Reason for Visit Outpatient (Routine) - Closed Specialty Diagnoses / Procedures Referred By Contact Refer red To Contact Diagnoses Coronary Artery Disease With Stable Angina (With Other Forms Angina Pectoris) ([facility]) [facility]. [facility] Procedures Cardiac Rehab Program [address], [address] [place], [place] [address] Referral ID Status Reason Start Date Expiration Date Visits Requ ested Visits Authorized [id number] Closed 03/12/2022 03/12/2023 36 36 Encounter Details Date Type Department Care Team Description 07/14/2022 Hospital Encounter Department of Cardiac Benja Fry Coronary Artery Rehabilitation ashlee Palomo M.D. 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 [address], Angina (With Other [address] [place] [address] [address] Forms Angina [place], [place], Pectoris) ( [facility]) [address] [place] [address] [phone] Social History Tobacco Use Types Packs/Day Years [...] Name Type Priority Associated Diagnoses Order S [facility] Cardiac Rehab Card Rehab Routine Coronary Artery Once for 1 Occurrences Program Disease With Stable starting 07/14/2022 Angina (With Other until 05/2022 Forms Angina Pectoris) ([facility]) documented as of this encounter Visit Diagnoses Diagnosis Coronary Artery Disease With Stable Vivienne na (With Other Forms Angina Pectoris) ([facility]) documented in this encounter Additional Health Concerns Assessment Noted Time PHQ-9 Depression Total Score: 6 03/16/2022 9:52 AM CDT documented as of this encounter
--- OUTSIDE RECORDS SUMMARY | 2022-09-16 07:59 | XMS_ITS | Encounter Summary ---
:1955 Author Organization [facility] Address [address] [place] [address] Care Team Providers Name Role Phone Unavailable Primary Care Provider Unavailable Reason for Referral Outpatient (Routine) - Closed Specialty Diagnoses / Procedures Referred By Contact Refer red To Contact Diagnoses Coronary Artery Disease With Stable Angina (With Other Forms Angina Pectoris) ([facility]) Benja Fry M.D. [facility] Procedures Cardiac Rehab Program [address], [address] [place], [place] [address] Referral ID Status Reason Start Date Expiration Date Visits Requ ested Visits Authorized [id number] Closed 03/12/2022 03/12/2023 36 36 Reason for Visit Outpatient (Routine) - Closed Specialty Diagnoses / Procedures Referred By Contact Refer red To Contact Diagnoses Coronary Artery Disease With Stable Angina (With Other Forms Angina Pectoris) ([facility]) Benja Fry M.D. [facility] Procedures Cardiac Rehab Program [address], [address] [place], [place] [address] Referral ID Status Reason Start Date Expiration Date Visits Requ ested Visits Authorized [id number] Closed 03/12/2022 03/12/2023 36 36 Encounter Details Date Type Department Care Team Description 08/23/2022 Hospital Encounter Department of Cardiac Benja Fry Coronary Artery Rehabilitation ashlee Palomo M.D. 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 [address], Angina (With Other [address] [place] [address] [address] Forms Angina [place], [place], Pectoris) ( [facility]) [address] [place] [address] [phone] Social History Tobacco Use Types Packs/Day Years [...] Name Type Priority Associated Diagnoses Order S [facility] Cardiac Rehab Card Rehab Routine Coronary Artery Once for 1 Occurrences Program Disease With Stable starting 08/23/2022 Angina (With Other until Forms Angina Pectoris) ([facility]) documented as of this encounter Visit Diagnoses Diagnosis Coronary Artery Disease With Stable Vivienne na (With Other Forms Angina Pectoris) ([facility]) documented in this encounter Additional Health Concerns Assessment Noted Time PHQ-9 Depression Total Score: 6 03/16/2022 9:52 AM CDT documented as of this encounter
--- OUTSIDE RECORDS SUMMARY | 2022-09-16 07:59 | XMS_ITS | Encounter Summary ---
:1955 Author Organization [facility] Address [address] [place] [address] Care Team Providers Name Role Phone Unavailable Primary Care Provider Unavailable Reason for Visit Reason Comments Scheduling Encounter Details Date Type Department Care Team Description 06/25/2022 Clinical Communication Department of Cardiac [place], Scheduling Rehabilitation in [address] [phone] Social History Tobacco Use Types Packs/Day Years Used Date Smoking Tobacco: Never Assessed Sex Assigned at Date Recorded Not on file documented as of this encounter Plan of Treatment Not on filedocumented as of this encounter Visit Diagnoses Not on filedocumented in this encounter Additional Health Concerns Assessment Noted Time PHQ-9 Depression Total Score: 6 03/16/2022 9:52 AM CDT documented as of this encounter
--- OUTSIDE RECORDS SUMMARY | 2022-09-16 07:59 | XMS_ITS | Encounter Summary ---
:1955 Author Organization [facility] Address [address] [place] [address] Care Team Providers Name Role Phone Unavailable Primary Care Provider Unavailable Reason for Referral Outpatient (Routine) - Closed Specialty Diagnoses / Procedures Referred By Contact Refer red To Contact Diagnoses Coronary Artery Disease With Stable Angina (With Other Forms Angina Pectoris) ([facility]) Benja Fry M.D. [facility] Procedures Cardiac Rehab Program [address], [address] [place], [place] [address] Referral ID Status Reason Start Date Expiration Date Visits Requ ested Visits Authorized [id number] Closed 03/12/2022 03/12/2023 36 36 Reason for Visit Outpatient (Routine) - Closed Specialty Diagnoses / Procedures Referred By Contact Refer red To Contact Diagnoses Coronary Artery Disease With Stable Angina (With Other Forms Angina Pectoris) ([facility]) Benja Fry M.D. [facility] Procedures Cardiac Rehab Program [address], [address] [place], [place] [address] Referral ID Status Reason Start Date Expiration Date Visits Requ ested Visits Authorized [id number] Closed 03/12/2022 03/12/2023 36 36 Encounter Details Date Type Department Care Team Description 07/30/2022 Hospital Encounter Department of Cardiac Benja Fry Coronary Artery Rehabilitation ashlee Palomo M.D. Disease With Stable [place], [facility] deejay [address], Angina (With Other [address] [place] [address] [address] Forms Angina [place], [place], Pectoris) ( [facility]) [address] [place] [address] [phone] Social History Tobacco Use Types Packs/Day Years [...] Name Type Priority Associated Diagnoses Order S [facility] Cardiac Rehab Card Rehab Routine Coronary Artery Once for 1 Occurrences Program Disease With Stable starting 07/30/2022 Angina (With Other until Forms Angina Pectoris) ([facility]) documented as of this encounter Visit Diagnoses Diagnosis Coronary Artery Disease With Stable Vivienne na (With Other Forms Angina Pectoris) ([facility]) documented in this encounter Additional Health Concerns Assessment Noted Time PHQ-9 Depression Total Score: 6 03/16/2022 9:52 AM CDT documented as of this encounter
--- OUTSIDE RECORDS SUMMARY | 2022-09-16 07:59 | XMS_ITS | Clinical Summary ---
:1955 Author Organization [facility] [place] [address] Care Team Providers Name Role Phone Flako Pierre MD Primary Care Provider Allergies No known active allergies Medications Medication Sig Dispensed Refills Start Date End Date Status multivitamins-minera Take 1 tablet by 0 07/16/2011 Active ls-lutein (CENTRUM mouth once daily. SILVER) tab tablet calcium 600 mg Take 2 capsules by 0 07/16/2011 Active capsule mouth once daily. levothyroxine Take 125 mcg by 0 11/23/2021 Active (SYNTHROID) 125 mcg mouth once daily. tablet nitroglycerin PLACE 1 TABLET 0 01/01/2022 Active (NITROSTAT) 0.4 mg UNDER THE TONGUE sublingual tablet NEEDED FOR CHEST PAIN. MAY REPEAT EVERY 5 MINUTES FOR UP TO 3 DOSES. CALL 911 AFTER USE aspirin 81 mg cap Take by mouth. 0 Active acetaminophen SR Take 1,300 mg by 0 Active (TYLENOL ARTHRITIS) mouth every 8 650 mg hours. Max Extended-Release acetaminophen dose: tablet 4000mg in 24 hrs. amLODIPine (NORVASC) Take 1 Tablet (5 90 Tablet 0 01/14/2022 Active 5 mg mg) by mouth once tabletIndications: daily. HTN (hypertension) rosuvastatin Take 1 Tablet (20 90 Tablet 0 01/14/2022 Active (CRESTOR) 20 mg mg) by mouth at tabletIndications: bedtime. CAD S/P percutaneous coronary angioplasty clopidogreL (PLAVIX) Take 1 Tablet (75 90 Tablet 3 03/03/2022 Active 75 mg mg) by mouth every tabletIndications: morning. CAD S/P percutaneous coronary angioplasty isosorbide Take one-half 45 Tablet 0 03/05/2022 Acti ve mononitrate (IMDUR) tablet (15 mg) by 30 mg extended mouth once daily. release tablet 24 HourIndications: CAD S/P percutaneous coronary angioplasty chlorthalidone Take 0.5 Tablets 45 Tablet 2 06/18/2022 Active (HYGROTON) 25 mg (12.5 mg) by mouth tabletIndications: every morning. HTN (hypertension) metoprolol tartrate Take 1 Tablet (25 180 Tablet 1 07/07/2022 Active (LOPRESSOR) 25 mg mg) by mouth two tabletIndications: times daily. Hypertension, unspecified type, PAD (peripheral artery disease) [...] i liac stenting) 07/07/2022 Hospital Encounter Vivek Chan, [facility] vascular Allied Health disease with c laudication (HC) 07/07/2022 Travel 06/18/2022 Refill Abilio Qureshi Refill Request MD Luca (Chlorthalidone ) from Last 3 Months Social History Tobacco Use Types Packs/Day Years Used Date Former Smoker Cigarettes Quit: 11/15/19 06 Smokeless Tobacco: Never Used Tobacco Cessation: Counseling Given: Yes Comments: TIP 01/14/22 Alcohol Use Standard Drinks/Week Comments Yes 1.7 (1 standard drink = 0.6 oz pure alco hol) Sex Assigned at Date Recorded Not on file Obstetrics History Last Filed Vital Signs Vital [...] 05/18/2022 7:02 AM CDT Plan of Treatment Upcoming Encounters Date Type Specialty Care Team Description 10/21/2022 Office Visit Abilio Qureshi MD [address] [facility] [address] [place] [address] (Wo rk) Health Maintenance Due Date Last Done Comments Tdap 1968 Depression screening for age 12+ 1969 BMI (ht and wt on same day) for 1975 age 18+ Hepatitis C screening for age 0212/20/1975 18-79 Tetanus booster 1977 Colonoscopy through age 75 2002 Zoster (shingles) series for age 0212/20/2007 50+ (1 of 2) COVID-19 vaccine series (5 - 05/04/2022 03/09/2022, 021, Booster for Pfizer series) 03/03/2021, Additiona l history exists Influenza for age 50-64 07/08/2022 Lipids for age 45-75 03/02/2027 03/02/2022 Procedures Procedure Name Priority Date/Time Associated Diagnosis Comme nts US ANKLE BRACHIAL Routine 07/07/2022 3:33 PM Peripheral vascul ar Results for this INDEX BILATERAL CDT disease with procedure ar e in claudication (HC) the result s section. from Last 3 Months Results US ANKLE BRACHIAL INDEX BILATERAL (07/07/2022 3:33 PM CDT) Anatomical Region Laterality Modality ANKLES, ANKLE L, ANKLE R Ultrasound Specimen (Source) Anatomical Collection Method Collection Time Re ceived Time Location / / Volume Laterality 07/07/2022 3:17 PM CDT Narrative 07/07/2022 5:32 PM CDT VASCULAR ULTRASOUND REPORT MANJEET PENN Accession#: ?? [id number] : ?1955 ??Study Date: ?? 06/09 3:17:43 PM Age: ?66 years ?? Tech: ? BHM Gender: M ?Referring MD: SA EVA BANKS Site: [facility] Study performed: ?Resting ASAD, (b ilateral). Indication for study: Follow-up ELASTIC ATTACHER COVERSTITCH/sten t/bypass Study Quality: ?Good TECHNIQUE: Lower/upper extremity [...] ? Index +-----+ +--------+ +-----+ 1.22 ?157 ?ELASTIC ATTACHER COVERSTITCH ?155 ? 1.20 +-----+ +--------+ +-----+ 1.22 ?158 ?DPA ?150 ? 1.16 +-----+ +--------+ +-----+ Yamil Funk MD. Electronically signed on 07/07/2022 5:32: 04 PM This study was performed and interpreted by a service accredited by the Intersocietal Accreditation Commission (IAC/Vascular), www.intersocietal.org/vascular Report generated by [employer]. ??Final ?? Procedure Note Yamil Funk MD - 07/07/2022 VASCULAR ULTRASOUND REPORT MANJEET PENN : 1955 Study Date: 07/07/2022 3:1 7:43 PM Age: 66 years Tech: [facility] Gender: M Referring MD: ANNMARIE BANKS Site: [facility] Vascular Center Study performed: Resting ASAD, (bilateral ). Indication for study: Follow-up ELASTIC ATTACHER COVERSTITCH/sten t/bypass Study Quality: Good TECHNIQUE: Lower/upper extremity [...] 128 Index +-----+ +--------+ +-----+ 1.22 157 ELASTIC ATTACHER COVERSTITCH 155 1.20 +-----+ +--------+ +-----+ 1.22 158 DPA 150 1.16 +-----+ +--------+ +-----+ Yamil Funk MD. Electronically signed on 07/07/2022 5:32: 04 PM This study was performed and interpreted by a service accredited by the Intersocietal Accreditation Commission (IAC/Vascular), www.intersocietal.org/vascular Report generated by [employer]. 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
--- OUTSIDE RECORDS SUMMARY | 2022-09-16 08:00 | XMS_ITS | Encounter Summary ---
:1955 Author Organization [facility] Address [address] [place] [address] Care Team Providers Name Role Phone Unavailable Primary Care Provider Unavailable Reason for Referral Outpatient (Routine) - Closed Specialty Diagnoses / Procedures Referred By Contact Refer red To Contact Diagnoses Coronary Artery Disease With Stable Angina (With Other Forms Angina Pectoris) ([facility]) Benja Fry M.D. [facility] Procedures Cardiac Rehab Program [address], [address] [place], [place] [address] Referral ID Status Reason Start Date Expiration Date Visits Requ ested Visits Authorized [id number] Closed 03/12/2022 03/12/2023 36 36 Reason for Visit Outpatient (Routine) - Closed Specialty Diagnoses / Procedures Referred By Contact Refer red To Contact Diagnoses Coronary Artery Disease With Stable Angina (With Other Forms Angina Pectoris) ([facility]) Benja [facility]. [facility] Procedures Cardiac Rehab Program [address], [address] [place], [place] [address] Referral ID Status Reason Start Date Expiration Date Visits Requ ested Visits Authorized [id number] Closed 03/12/2022 03/12/2023 36 36 Encounter Details Date Type Department Care Team Description 06/04/2022 Hospital Encounter Department of Cardiac Benja Fry Coronary Artery Rehabilitation ashlee Palomo M.D. 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 [address], Angina (With Other [address] [place] [address] [address] Forms Angina [place], [place], Pectoris) ( [facility]) [address] [place] [address] [phone] Social History Tobacco Use Types Packs/Day Years [...] Priority Associated Diagnoses Order S [facility] Cardiac Rehab Card Rehab Routine Coronary Artery Once for 1 Occurrences Program Disease With Stable starting 06/04/2022 Angina (With Other until Forms Angina Pectoris) ([facility]) documented as of this encounter Visit Diagnoses Diagnosis Coronary Artery Disease With Stable Vivienne na (With Other Forms Angina Pectoris) ([facility]) documented in this encounter Additional Health Concerns Assessment Noted Time PHQ-9 Depression Total Score: 6 03/16/2022 9:52 AM CDT documented as of this encounter
--- OUTSIDE RECORDS SUMMARY | 2022-09-16 08:00 | XMS_ITS | Encounter Summary ---
:1955 Author Organization [facility] Address [address] [place] [address] Care Team Providers Name Role Phone Unavailable Primary Care Provider Unavailable Reason for Referral Outpatient (Routine) - Closed Specialty Diagnoses / Procedures Referred By Contact Refer red To Contact Diagnoses Coronary Artery Disease With Stable Angina (With Other Forms Angina Pectoris) ([facility]) Benja Fry M.D. [facility] Procedures Cardiac Rehab Program [address], [address] [place], [place] [address] Referral ID Status Reason Start Date Expiration Date Visits Requ ested Visits Authorized [id number] Closed 03/12/2022 03/12/2023 36 36 Reason for Visit Outpatient (Routine) - Closed Specialty Diagnoses / Procedures Referred By Contact Refer red To Contact Diagnoses Coronary Artery Disease With Stable Angina (With Other Forms Angina Pectoris) ([facility]) [facility]. [facility] Procedures Cardiac Rehab Program [address], [address] [place], [place] [address] Referral ID Status Reason Start Date Expiration Date Visits Requ ested Visits Authorized [id number] Closed 03/12/2022 03/12/2023 36 36 Encounter Details Date Type Department Care Team Description 03/19/2022 Hospital Encounter Department of Cardiac Benja Fry Coronary Artery Rehabilitation ashlee Palomo M.D. 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 [address], Angina (With Other [address] [place] [address] [address] Forms Angina [place], [place], Pectoris) ( [facility]) [address] [place] [address] [phone] Social History Tobacco Use Types Packs/Day Years [...] Priority Associated Diagnoses Order S [facility] Cardiac Rehab Card Rehab Routine Coronary Artery Once for 1 Occurrences Program Disease With Stable starting 03/19/2022 Angina (With Other until Forms Angina Pectoris) ([facility]) documented as of this encounter Visit Diagnoses Diagnosis Coronary Artery Disease With Stable Vivienne na (With Other Forms Angina Pectoris) ([facility]) documented in this encounter Additional Health Concerns Assessment Noted Time PHQ-9 Depression Total Score: 6 03/16/2022 9:52 AM CDT documented as of this encounter
--- OUTSIDE RECORDS SUMMARY | 2022-09-16 08:00 | XMS_ITS | Encounter Summary ---
:1955 Author Organization [facility] Address [address] [place] [address] Care Team Providers Name Role Phone Unavailable Primary Care Provider Unavailable Reason for Referral Outpatient (Routine) - Closed Specialty Diagnoses / Procedures Referred By Contact Refer red To Contact Diagnoses Coronary Artery Disease With Stable Angina (With Other Forms Angina Pectoris) ([facility]) Benja Fry M.D. [facility] Procedures Cardiac Rehab Program [address], [address] [place], [place] [address] Referral ID Status Reason Start Date Expiration Date Visits Requ ested Visits Authorized [id number] Closed 03/12/2022 03/12/2023 36 36 Reason for Visit Outpatient (Routine) - Closed Specialty Diagnoses / Procedures Referred By Contact Refer red To Contact Diagnoses Coronary Artery Disease With Stable Angina (With Other Forms Angina Pectoris) ([facility]) Benja Fry M.D. [facility] Procedures Cardiac Rehab Program [address], [address] [place], [place] [address] Referral ID Status Reason Start Date Expiration Date Visits Requ ested Visits Authorized [id number] Closed 03/12/2022 03/12/2023 36 36 Encounter Details Date Type Department Care Team Description 03/24/2022 Hospital Encounter Department of Cardiac Benaj Fry Coronary Artery Rehabilitation ashlee Palomo M.D. 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
--- OUTSIDE RECORDS SUMMARY | 2022-09-16 08:00 | XMS_ITS | Encounter Summary ---
:1955 Author Organization [facility] Address [address] [place] [address] Care Team Providers Name Role Phone Unavailable Primary Care Provider Unavailable Reason for Referral Outpatient (Routine) - Closed Specialty Diagnoses / Procedures Referred By Contact Refer red To Contact Diagnoses Coronary Artery Disease With Stable Angina (With Other Forms Angina Pectoris) ([facility]) Benja Fry M.D. [facility] Procedures Cardiac Rehab Program [address], [address] [place], [place] [address] Referral ID Status Reason Start Date Expiration Date Visits Requ ested Visits Authorized [id number] Closed 03/12/2022 03/12/2023 36 36 Reason for Visit Outpatient (Routine) - Closed Specialty Diagnoses / Procedures Referred By Contact Refer red To Contact Diagnoses Coronary Artery Disease With Stable Angina (With Other Forms Angina Pectoris) ([facility]) Benja rFy M.D. [facility] Procedures Cardiac Rehab Program [address], [address] [place], [place] [address] Referral ID Status Reason Start Date Expiration Date Visits Requ ested Visits Authorized [id number] Closed 03/12/2022 03/12/2023 36 36 Encounter Details Date Type Department Care Team Description 06/18/2022 Hospital Encounter Department of Cardiac Benja Fry Coronary Artery Rehabilitation ashlee Palomo M.D. 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 [address], Angina (With Other [address] [place] [address] [address] Forms Angina [place], [place], Pectoris) ( [facility]) [address] [place] [address] [phone] Social History Tobacco Use Types Packs/Day Years [...] Name Type Priority Associated Diagnoses Order S [facility] Cardiac Rehab Card Rehab Routine Coronary Artery Once for 1 Occurrences Program Disease With Stable starting 06/18/2022 Angina (With Other until 10/2022 Forms Angina Pectoris) ([facility]) documented as of this encounter Visit Diagnoses Diagnosis Coronary Artery Disease With Stable Vivienne na (With Other Forms Angina Pectoris) ([facility]) documented in this encounter Additional Health Concerns Assessment Noted Time PHQ-9 Depression Total Score: 6 03/16/2022 9:52 AM CDT documented as of this encounter
--- OUTSIDE RECORDS SUMMARY | 2022-09-16 08:00 | XMS_ITS | Encounter Summary ---
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 [facility] Procedures Cardiac Rehab Program [address], [address] [place], [place] [address] Referral ID Status Reason Start Date Expiration Date Visits Requ ested Visits Authorized [id number] Closed 03/12/2022 03/12/2023 36 36 Reason for Visit Outpatient (Routine) - Closed Specialty Diagnoses / Procedures Referred By Contact Refer red To Contact Diagnoses Coronary Artery Disease With Stable Angina (With Other Forms Angina Pectoris) ([facility]) [facility]. [facility] Procedures Cardiac Rehab Program [address], [address] [place], [place] [address] Referral ID Status Reason Start Date Expiration Date Visits Requ ested Visits Authorized [id number] Closed 03/12/2022 03/12/2023 36 36 Encounter Details Date Type Department Care Team Description 05/24/2022 Hospital Encounter Department of Cardiac Benja Fry Coronary Artery Rehabilitation ashlee Palomo M.D. 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 Medical Record Number (MRN): [id number] Encounter Date: 05/24/2022 PCP: No primary care provider on file. Referring Provider and Book Jacket Cover Machine Operator 03/16/[address] 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sx but is able to get things done Activity Education ACTIVITY LOG [id number];EXERCISE AND PHYSICAL ACTIVITY GUIDELINES FOR PEOPLE WITH HEART DISEASE ET1667-86;EXERCISE PROGRAM GUIDELINES BF6447 ACTIVITY LOG [id number];EXERCISE AND PHYSICAL ACTIVITY GUIDELINES FOR PEOPLE WITH HEART DISEASE KB3868-28;EXERCISE PROGRAM GUIDELINES [id number] Comments - PAD procedure in early May; [...] Nutrition Education LOWERING HIGH CHOLESTEROL THROUGH DIET VB7749-43;PROCUREMENT PROFESSIONAL CONSULT/CLASS LOWERING HIGH CHOLESTEROL THROUGH DIET CP5857-54;PROCUREMENT PROFESSIONAL CONSULT/CLASS Comments - no change Psychosocial Assessment PHQ-9 03/16/2022 Charting Type Initial Assessment PHQ-9 Score 6 Interpretation Mild [facility] 03/16/2022 Total Score 20 Assessment 03/16/2022 06/01/2022 [...] Hypertension Education BLOOD PRESSURE RECORD WALLET CARD [id number];HIGH BLOOD PRESSURE (HYPERTENSION) [id number];MANAGING CHOLESTEROL SODIUM AND TRIGLYCERIDES [id number] BLOOD PRESSURE RECORD WALLET CARD IH0148-03;HIGH BLOOD PRESSURE (HYPERTENSION) JO1897;MANAGING CHOLESTEROL SODIUM AND TRIGLYCERIDES [id number] Comments - no change Hyperlipidemia Assessment Assessment 03/16/2022 06/01/2022 History of Hyperlipidemia Yes Yes Current Medication Therapy Yes Yes Hyperlipidemia Stage of Change Maintenance Maintenance Lipids No lab values to display. Hyperlipidemia Plan Plan 03/16/2022 06/01/2022 Charting Type Initial Assessment Reassessment Goals Improve Lipids;Lipids in optimal range;Understand current Lipid profile Improve Lipids;Lipids in optimal range;Understand current Lipid profile Interventions Therapist Discussion;Fire Observer consult/class;Review lipid profile;Discussion on statins Therapist Discussion;Fire Observer consult/class;Review lipid profile;Discussion on statins Progress Toward Goals tolerating statin well tolerating statin well Hyperlipidemia Education LOWERING HIGH CHOLESTEROL THROUGH DIET CF0462-03 LOWERING HIGH CHOLESTEROL THROUGH DIET VE7881-56 Comments - no change Diabetes Assessment Lab [...] Name Type Priority Associated Diagnoses Order S [facility] Cardiac Rehab Card Rehab Routine Coronary Artery Once for 1 Occurrences Program Disease With Stable starting 05/24/2022 Angina (With Other until Forms Angina Pectoris) ([facility] [...]
--- OUTSIDE RECORDS SUMMARY | 2022-09-16 08:00 | XMS_ITS | Encounter Summary ---
:1955 Author Organization [facility] Address [address] [place] [address] Care Team Providers Name Role Phone Unavailable Primary Care Provider Unavailable Reason for Referral Outpatient (Routine) - Closed Specialty Diagnoses / Procedures Referred By Contact Refer red To Contact Diagnoses Coronary Artery Disease With Stable Angina (With Other Forms Angina Pectoris) ([facility]) Benja Fry M.D. [facility] Procedures Cardiac Rehab Program [address], [address] [place], [place] [address] Referral ID Status Reason Start Date Expiration Date Visits Requ ested Visits Authorized [id number] Closed 03/12/2022 03/12/2023 36 36 Reason for Visit Outpatient (Routine) - Closed Specialty Diagnoses / Procedures Referred By Contact Refer red To Contact Diagnoses Coronary Artery Disease With Stable Angina (With Other Forms Angina Pectoris) ([facility]) Benja [facility]. [facility] Procedures Cardiac Rehab Program [address], [address] [place], [place] [address] Referral ID Status Reason Start Date Expiration Date Visits Requ ested Visits Authorized [id number] Closed 03/12/2022 03/12/2023 36 36 Encounter Details Date Type Department Care Team Description 03/22/2022 Hospital Encounter Department of Cardiac Benja Fry Coronary Artery Rehabilitation ashlee Palomo M.D. 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 [address], Angina (With Other [address] [place] [address] [address] Forms Angina [place], [place], Pectoris) ( [facility]) [address] [place] [address] [phone] Social History Tobacco Use Types Packs/Day Years [...] Name Type Priority Associated Diagnoses Order S [facility] Cardiac Rehab Card Rehab Routine Coronary Artery Once for 1 Occurrences Program Disease With Stable starting 03/22/2022 Angina (With Other until Forms Angina Pectoris) ([facility]) documented as of this encounter Visit Diagnoses Diagnosis Coronary Artery Disease With Stable Vivienne na (With Other Forms Angina Pectoris) ([facility]) documented in this encounter Additional Health Concerns Assessment Noted Time PHQ-9 Depression Total Score: 6 03/16/2022 9:52 AM CDT documented as of this encounter
--- OUTSIDE RECORDS SUMMARY | 2022-09-16 08:00 | XMS_ITS | Encounter Summary ---
:1955 Author Organization [facility] Address [address] [place] [address] Care Team Providers Name Role Phone Unavailable Primary Care Provider Unavailable Reason for Referral Outpatient (Routine) - Closed Specialty Diagnoses / Procedures Referred By Contact Refer red To Contact Diagnoses Coronary Artery Disease With Stable Angina (With Other Forms Angina Pectoris) ([facility]) Benja Fry M.D. [facility] Procedures Cardiac Rehab Program [address], [address] [place], [place] [address] Referral ID Status Reason Start Date Expiration Date Visits Requ ested Visits Authorized [id number] Closed 03/12/2022 03/12/2023 36 36 Reason for Visit Outpatient (Routine) - Closed Specialty Diagnoses / Procedures Referred By Contact Refer red To Contact Diagnoses Coronary Artery Disease With Stable Angina (With Other Forms Angina Pectoris) ([facility]) Benja Fry M.D. [facility] Procedures Cardiac Rehab Program [address], [address] [place], [place] [address] Referral ID Status Reason Start Date Expiration Date Visits Requ ested Visits Authorized [id number] Closed 03/12/2022 03/12/2023 36 36 Encounter Details Date Type Department Care Team Description 06/07/2022 Hospital Encounter Department of Cardiac Benja Fry Coronary Artery Rehabilitation ashlee Palomo M.D. Disease With Stable [place], [facility] deejay [address], Angina (With Other [address] [place] [address] [address] Forms Angina [place], [place], Pectoris) ( [facility]) [address] [place] [address] [phone] Social History Tobacco Use Types Packs/Day Years [...] Type Priority Associated Diagnoses Order S [facility] Cardiac Rehab Card Rehab Routine Coronary Artery Once for 1 Occurrences Program Disease With Stable starting 06/07/2022 Angina (With Other until 11/2021 Forms Angina Pectoris) ([facility]) documented as of this encounter Visit Diagnoses Diagnosis Coronary Artery Disease With Stable Vivienne na (With Other Forms Angina Pectoris) ([facility]) documented in this encounter Additional Health Concerns Assessment Noted Time PHQ-9 Depression Total Score: 6 03/16/2022 9:52 AM CDT documented as of this encounter
--- OUTSIDE RECORDS SUMMARY | 2022-09-16 08:00 | XMS_ITS | Encounter Summary ---
:1955 Author Organization [facility] Address [address] [place] [address] Care Team Providers Name Role Phone Unavailable Primary Care Provider Unavailable Reason for Referral Outpatient (Routine) - Closed Specialty Diagnoses / Procedures Referred By Contact Refer red To Contact Diagnoses Coronary Artery Disease With Stable Angina (With Other Forms Angina Pectoris) ([facility]) Benja Fry M.D. [facility] Procedures Cardiac Rehab Program [address], [address] [place], [place] [address] Referral ID Status Reason Start Date Expiration Date Visits Requ ested Visits Authorized [id number] Closed 03/12/2022 03/12/2023 36 36 Reason for Visit Outpatient (Routine) - Closed Specialty Diagnoses / Procedures Referred By Contact Refer red To Contact Diagnoses Coronary Artery Disease With Stable Angina (With Other Forms Angina Pectoris) ([facility]) Benja Fry M.D. [facility] Procedures Cardiac Rehab Program [address], [address] [place], [place] [address] Referral ID Status Reason Start Date Expiration Date Visits Requ ested Visits Authorized [id number] Closed 03/12/2022 03/12/2023 36 36 Encounter Details Date Type Department Care Team Description 05/31/2022 Hospital Encounter Department of Cardiac Benja Fry Coronary Artery Rehabilitation ashlee Palomo M.D. Disease With Stable [place], [facility] cota [address], Angina (With Other [address] [place] [address] [address] Forms Angina [place], [place], Pectoris) ( [facility]) [address] [place] [address] [phone] Social History Tobacco Use Types Packs/Day Years [...] Name Type Priority Associated Diagnoses Order S [facility] Cardiac Rehab Card Rehab Routine Coronary [...]
--- OUTSIDE RECORDS SUMMARY | 2022-09-16 08:00 | XMS_ITS | Encounter Summary ---
:1955 Author Organization [facility] Address [address] [place] [address] Care Team Providers Name Role Phone Unavailable Primary Care Provider Unavailable Reason for Referral Outpatient (Routine) - Closed Specialty Diagnoses / Procedures Referred By Contact Refer red To Contact Diagnoses Coronary Artery Disease With Stable Angina (With Other Forms Angina Pectoris) ([facility]) Benja Fry M.D. [facility] Procedures Cardiac Rehab Program [address], [address] [place], [place] [address] Referral ID Status Reason Start Date Expiration Date Visits Requ ested Visits Authorized [id number] Closed 03/12/2022 03/12/2023 36 36 Reason for Visit Outpatient (Routine) - Closed Specialty Diagnoses / Procedures Referred By Contact Refer red To Contact Diagnoses Coronary Artery Disease With Stable Angina (With Other Forms Angina Pectoris) ([facility]) Benja Fry M.[facility]. [facility] Procedures Cardiac Rehab Program [address], [address] [place], [place] [address] Referral ID Status Reason Start Date Expiration Date Visits Requ ested Visits Authorized [id number] Closed 03/12/2022 03/12/2023 36 36 Encounter Details Date Type Department Care Team Description 06/09/2022 Hospital Encounter Department of Cardiac Benja Fry Coronary Artery Rehabilitation ashlee Palomo M.D. Disease With Stable [place], [facility] deejay [address], Angina (With Other [address] [place] [address] [address] Forms Angina [place], [place], Pectoris) ( [facility]) [address] [place] [address] [phone] Social History Tobacco Use Types Packs/Day Years [...] Name Type Priority Associated Diagnoses Order S [facility] Cardiac Rehab Card Rehab Routine Coronary Artery Once for 1 Occurrences Program Disease With Stable starting 06/09/2022 Angina (With Other until 01/2022 Forms Angina Pectoris) ([facility]) documented as of this encounter Visit Diagnoses Diagnosis Coronary Artery Disease With Stable Viveinne na (With Other Forms Angina Pectoris) ([facility]) documented in this encounter Additional Health Concerns Assessment Noted Time PHQ-9 Depression Total Score: 6 03/16/2022 9:52 AM CDT documented as of this encounter
--- OUTSIDE RECORDS SUMMARY | 2022-09-16 08:00 | XMS_ITS | Encounter Summary ---
:1955 Author Organization [facility] Address [address] [place] [address] Care Team Providers Name Role Phone Unavailable Primary Care Provider Unavailable Reason for Referral MRI/CAT/PET Scan (Routine) - Closed Specialty Diagnoses / Procedures Referred By Contact Refer red To Contact Radiology Diagnoses Coronary Artery Disease With Stable Angina (With Other Forms Angina Pectoris) ([facility]) Abilio Qureshi M.D[facility] Procedures CT Abd Pelvis Angio and Lower Ext Runoff Bilat with IV Contrast [address] [place] [address] Referral ID Status Reason Start Date Expiration Date Visits Requ ested Visits Authorized [id number] Closed 03/23/2022 03/23/2023 1 1 Reason for Visit MRI/CAT/PET Scan (Routine) - Closed Specialty Diagnoses / Procedures Referred By Contact Refer red To Contact Radiology Diagnoses Coronary Artery Disease With Stable Angina (With Other Forms Angina Pectoris) ([facility]) Abilio Qureshi M.D. [facility] Procedures CT Abd Pelvis Angio and Lower Ext Runoff Bilat with IV Contrast [address] [place] [address] Referral ID Status Reason Start Date Expiration Date Visits Requ ested Visits Authorized [id number] Closed 03/23/2022 03/23/2023 1 1 Encounter Details Date Type Department Care Team Description 03/23/2022 Hospital Encounter Department of Abilio Qureshi Coronar y Artery Radiology in Tunde Meza M.D. Disease With Stable [place], [place] [address] Angina (With Other [address] [place], [place] [address] Pectoris) ([facility]) [address] Social History Tobacco Use Types Packs/Day [...] Not on filedocumented as of this encounter Procedures Procedure Name Priority Date/Time Associated Comments Diagnosis CT ABD PELVIS RAD - Routine 03/23/2022 12:35 Coronary Artery Result s for this ANGIO AND LOWER (most inpatients PM CDT Disease With procedur e are in EXT RUNOFF BILAT and all Stable Angina the result s WITH IV CONTRAST outpatients) (With Other Forms sectio n. Angina Pectoris) ([facility]) documented in this encounter Results CT Abd [...]
--- OUTSIDE RECORDS SUMMARY | 2022-09-16 08:00 | XMS_ITS | Encounter Summary ---
:1955 Author Organization [facility] Address [address] [place] [address] Care Team Providers Name Role Phone Unavailable Primary Care Provider Unavailable Reason for Referral Outpatient (Routine) - Closed Specialty Diagnoses / Procedures Referred By Contact Refer red To Contact Diagnoses Coronary Artery Disease With Stable Angina (With Other Forms Angina Pectoris) ([facility]) Benja Fry M.D. [facility] Procedures Cardiac Rehab Program [address], [address] [place], [place] [address] Referral ID Status Reason Start Date Expiration Date Visits Requ ested Visits Authorized [id number] Closed 03/12/2022 03/12/2023 36 36 Reason for Visit Outpatient (Routine) - Closed Specialty Diagnoses / Procedures Referred By Contact Refer red To Contact Diagnoses Coronary Artery Disease With Stable Angina (With Other Forms Angina Pectoris) ([facility]) [facility]. [facility] Procedures Cardiac Rehab Program [address], [address] [place], [place] [address] Referral ID Status Reason Start Date Expiration Date Visits Requ ested Visits Authorized [id number] Closed 03/12/2022 03/12/2023 36 36 Encounter Details Date Type Department Care Team Description 06/11/2022 Hospital Encounter Department of Cardiac Benja Fry Coronary Artery Rehabilitation ashlee Palomo M.D. Disease With Stable [place], [facility] deejay [address], Angina (With Other [address] [place] [address] [address] Forms Angina [place], [place], Pectoris) ( [facility]) [address] [place] [address] [phone] Social History Tobacco Use Types Packs/Day Years [...] Name Type Priority Associated Diagnoses Order S [facility] Cardiac Rehab Card Rehab Routine Coronary Artery Once for 1 Occurrences Program Disease With Stable starting 06/11/2022 Angina (With Other until 03/2022 Forms Angina Pectoris) ([facility]) documented as of this encounter Visit Diagnoses Diagnosis Coronary Artery Disease With Stable Vivienne na (With Other Forms Angina Pectoris) ([facility]) documented in this encounter Additional Health Concerns Assessment Noted Time PHQ-9 Depression Total Score: 6 03/16/2022 9:52 AM CDT documented as of this encounter
--- OUTSIDE RECORDS SUMMARY | 2022-09-16 08:00 | XMS_ITS | Encounter Summary ---
:1955 Author Organization [facility] Address [address] [place] [address] Care Team Providers Name Role Phone Unavailable Primary Care Provider Unavailable Reason for Referral Outpatient (Routine) - Closed Specialty Diagnoses / Procedures Referred By Contact Refer red To Contact Diagnoses Coronary Artery Disease With Stable Angina (With Other Forms Angina Pectoris) ([facility]) Benja Fry M.D. [facility] Procedures Cardiac Rehab Program [address], [address] [place], [place] [address] Referral ID Status Reason Start Date Expiration Date Visits Requ ested Visits Authorized [id number] Closed 03/12/2022 03/12/2023 36 36 Reason for Visit Outpatient (Routine) - Closed Specialty Diagnoses / Procedures Referred By Contact Refer red To Contact Diagnoses Coronary Artery Disease With Stable Angina (With Other Forms Angina Pectoris) ([facility]) Benja [facility]. [facility] Procedures Cardiac Rehab Program [address], [address] [place], [place] [address] Referral ID Status Reason Start Date Expiration Date Visits Requ ested Visits Authorized [id number] Closed 03/12/2022 03/12/2023 36 36 Encounter Details Date Type Department Care Team Description 05/26/2022 Hospital Encounter Department of Cardiac Benja Fry Coronary Artery Rehabilitation ashlee Palomo M.D. 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 [address], Angina (With Other [address] [place] [address] [address] Forms Angina [place], [place], Pectoris) ( [facility]) [address] [place] [address] [phone] Social History Tobacco Use Types Packs/Day Years [...] Priority Associated Diagnoses Order S [facility] Cardiac Rehab Card Rehab Routine Coronary Artery Once for 1 Occurrences Program Disease With Stable starting 05/26/2022 Angina (With Other until Forms Angina Pectoris) ([facility]) documented as of this encounter Visit Diagnoses Diagnosis Coronary Artery Disease With Stable Vivienne na (With Other Forms Angina Pectoris) ([facility]) documented in this encounter Additional Health Concerns Assessment Noted Time PHQ-9 Depression Total Score: 6 03/16/2022 9:52 AM CDT documented as of this encounter
--- OUTSIDE RECORDS SUMMARY | 2022-09-16 08:00 | XMS_ITS | Encounter Summary ---
:1955 Author Organization [facility] Address [address] [place] [address] Care Team Providers Name Role Phone Unavailable Primary Care Provider Unavailable Reason for Referral Outpatient (Routine) - Closed Specialty Diagnoses / Procedures Referred By Contact Refer red To Contact Diagnoses Coronary Artery Disease With Stable Angina (With Other Forms Angina Pectoris) ([facility]) Benja Fry M.D. [facility] Procedures Cardiac Rehab Program [address], [address] [place], [place] [address] Referral ID Status Reason Start Date Expiration Date Visits Requ ested Visits Authorized [id number] Closed 03/12/2022 03/12/2023 36 36 Reason for Visit Outpatient (Routine) - Closed Specialty Diagnoses / Procedures Referred By Contact Refer red To Contact Diagnoses Coronary Artery Disease With Stable Angina (With Other Forms Angina Pectoris) ([facility]) [facility]. [facility] Procedures Cardiac Rehab Program [address], [address] [place], [place] [address] Referral ID Status Reason Start Date Expiration Date Visits Requ ested Visits Authorized [id number] Closed 03/12/2022 03/12/2023 36 36 Encounter Details Date Type Department Care Team Description 03/16/2022 Hospital Encounter Department of Cardiac Benja Fry Coronary Artery Rehabilitation ashlee Palomo M.D. 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 Medical Record Number (MRN): [id number] Encounter Date: 03/16/2022 PCP: No primary care provider on file. Referring Provider and Hand Picker 03/16/[address] 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 but is able to get things done Activity Education ACTIVITY LOG [id number];EXERCISE AND PHYSICAL ACTIVITY GUIDELINES FOR PEOPLE WITH HEART DISEASE UR5488-97;EXERCISE PROGRAM GUIDELINES HH5243 Nutrition Assessment Vital Signs 03/16/2022 Height 172.7 [...] Nutrition Education LOWERING HIGH CHOLESTEROL THROUGH DIET QF8744-14;DATA KEYER CONSULT/CLASS Psychosocial Assessment PHQ-9 03/16/2022 Charting Type Initial Assessment PHQ-9 Score 6 Interpretation Mild [facility] 03/16/2022 Total Score 20 Assessment 03/16/2022 Psychosocial [...] Hypertension Education BLOOD PRESSURE RECORD WALLET CARD ZA3557-35;HIGH BLOOD PRESSURE (HYPERTENSION) QS8594;MANAGING CHOLESTEROL SODIUM AND TRIGLYCERIDES LW3591-64 Hyperlipidemia Assessment Assessment 03/16/2022 History of Hyperlipidemia Yes Current Medication Therapy Yes Hyperlipidemia Stage of Change Maintenance Lipids No lab values to display. Hyperlipidemia Plan Plan 03/16/2022 Charting Type Initial Assessment Goals Improve Lipids;Lipids in optimal range;Understand current Lipid profile Interventions Therapist Discussion;Fence Installer consult/class;Review lipid profile;Discussion on statins Progress Toward Goals tolerating statin well Hyperlipidemia Education LOWERING HIGH CHOLESTEROL THROUGH DIET XI4430-98 Diabetes Assessment Lab Results None Diabetes Plan [...] Name Type Priority Associated Diagnoses Order S [facility] Cardiac Rehab Card Rehab Routine Coronary Artery Once for 1 Occurrences Program Disease With Stable starting 03/16/2022 Angina (With Other until 08/2022 Forms Angina Pectoris) ([facility]) documented as of this encounter Visit Diagnoses Diagnosis Coronary Artery Disease With Stable Vivienne na (With Other Forms Angina Pectoris) ([facility]) documented in this encounter Additional Health Concerns Assessment Noted Time PHQ-9 Depression Total Score: 6 03/16/2022 9:52 AM CDT documented as of this encounter
--- OUTSIDE RECORDS SUMMARY | 2022-09-16 08:00 | XMS_ITS | Encounter Summary ---
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 [facility] Procedures Cardiac Rehab Program [address], [address] [place], [place] [address] Referral ID Status Reason Start Date Expiration Date Visits Requ ested Visits Authorized [id number] Closed 03/12/2022 03/12/2023 36 36 Reason for Visit Outpatient (Routine) - Closed Specialty Diagnoses / Procedures Referred By Contact Refer red To Contact Diagnoses Coronary Artery Disease With Stable Angina (With Other Forms Angina Pectoris) ([facility]) [facility]. [facility] Procedures Cardiac Rehab Program [address], [address] [place], [place] [address] Referral ID Status Reason Start Date Expiration Date Visits Requ ested Visits Authorized [id number] Closed 03/12/2022 03/12/2023 36 36 Encounter Details Date Type Department Care Team Description 06/25/2022 Hospital Encounter Department of Cardiac Benja Fry Coronary Artery Rehabilitation ashlee Palomo M.D. 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 Medical Record Number (MRN): [id number] Encounter Date: 06/25/2022 PCP: No primary care provider on file. Referring Provider and Manager Developmental 03/16/[address] 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 but is able to get things done Activity Education ACTIVITY LOG [id number];EXERCISE AND PHYSICAL ACTIVITY GUIDELINES FOR PEOPLE WITH HEART DISEASE RF9862-76;EXERCISE PROGRAM GUIDELINES MQ4451 ACTIVITY LOG FD5800;EXERCISE AND PHYSICAL ACTIVITY GUIDELINES FOR PEOPLE WITH HEART DISEASE IA5915-36;EXERCISE PROGRAM GUIDELINES CF8306 ACTIVITY LOG VJ3387;EXERCISE AND PHYSICAL ACTIVITY GUIDELINES FOR PEOPLE WITH HEART DISEASE RA9267-38;EXERCISEPROGRAM GUIDELINES VU7473 Comments - PAD procedure in early May; [...] Nutrition Education LOWERING HIGH CHOLESTEROL THROUGH DIET JU8378-99;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/CLASS LOWERING HIGH CHOLESTEROL THROUGH DIET DR8178-36;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/CLASS LOWERING HIGH CHOLESTEROL THROUGH DIET RF5997-01;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/CLASS Comments - no change no change Psychosocial Assessment PHQ-9 03/16/2022 Charting Type Initial Assessment PHQ-9 Score 6 Interpretation Mild depression [facility] 03/16/2022 Total Score 20 Assessment 03/16/2022 [...] Hypertension Education BLOOD PRESSURE RECORD WALLET CARD RM2234-89;HIGH BLOOD PRESSURE (HYPERTENSION) SX0042;MANAGING CHOLESTEROL SODIUM AND TRIGLYCERIDES YD2954-86 BLOOD PRESSURE RECORD WALLET CARD MA6288-06;HIGH BLOOD PRESSURE (HYPERTENSION) OT6895;MANAGING CHOLESTEROL SODIUM AND TRIGLYCERIDES KR4369-72 BLOOD PRESSURE RECORD WALLET CARD JJ7747-11;HIGH BLOOD PRESSURE (HYPERTENSION) AR7319;MANAGING CHOLESTEROL SODIUM AND TRIGLYCERIDES UR9882-30 Comments - no change no change Hyperlipidemia [...] optimal range;Understand current Lipid profile Interventions Therapist Discussion;Supervisor Intermediates consult/class;Review lipid profile;Discussion on statins Therapist Discussion;Supervisor Intermediates consult/class;Review lipid profile;Discussion on statins Therapist Ashely borjas;Supervisor Intermediates consult/class;Review lipid profile;Discussion on statins Progress Toward Goals tolerating statin well tolerating statin well tolerating statin well Hyperlipidemia Education LOWERING HIGH CHOLESTEROL THROUGH DIET DJ1303-46 LOWERING HIGH CHOLESTEROL THROUGH DIET HI2574-20 LOWERING HIGH CHOLESTEROL THROUGH DIET SP4534-94 Comments - no change no change Diabetes [...] Name Type Priority Associated Diagnoses Order S [facility] Cardiac Rehab Card Rehab Routine Coronary Artery Once for 1 Occurrences Program Disease With Stable starting 06/25/2022 Angina (With Other until Forms Angina Pectoris) ([facility]) documented as of this encounter Visit Diagnoses Diagnosis Coronary Artery Disease With Stable Vivienne na (With Other Forms Angina Pectoris) ([facility]) documented in this encounter Additional Health Concerns Assessment Noted Time PHQ-9 Depression Total Score: 6 03/16/2022 9:52 AM CDT documented as of this encounter
--- OUTSIDE RECORDS SUMMARY | 2022-09-16 08:00 | XMS_ITS | Encounter Summary ---
:1955 Author Organization [facility] Address [address] [place] [address] Care Team Providers Name Role Phone Unavailable Primary Care Provider Unavailable Reason for Referral Outpatient (Routine) - Closed Specialty Diagnoses / Procedures Referred By Contact Refer red To Contact Diagnoses Coronary Artery Disease With Stable Angina (With Other Forms Angina Pectoris) ([facility]) Benja Fry M.D. [facility] Procedures Cardiac Rehab Program [address], [address] [place], [place] [address] Referral ID Status Reason Start Date Expiration Date Visits Requ ested Visits Authorized [id number] Closed 03/12/2022 03/12/2023 36 36 Reason for Visit Outpatient (Routine) - Closed Specialty Diagnoses / Procedures Referred By Contact Refer red To Contact Diagnoses Coronary Artery Disease With Stable Angina (With Other Forms Angina Pectoris) ([facility]) Benja Fry M.D. [facility] Procedures Cardiac Rehab Program [address], [address] [place], [place] [address] Referral ID Status Reason Start Date Expiration Date Visits Requ ested Visits Authorized [id number] Closed 03/12/2022 03/12/2023 36 36 Encounter Details Date Type Department Care Team Description 05/28/2022 Hospital Encounter Department of Cardiac Benja Fry Coronary Artery Rehabilitation ashlee Palomo M.D. 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 Cardiac Rehab Card Rehab Routine Coronary Artery Once for 1 Occurrences Program Disease With Stable starting 05/28/2022 Angina (With Other until Forms Angina Pectoris) ([facility]) documented as of this encounter Visit Diagnoses Diagnosis Coronary Artery Disease With Stable Vivienne na (With Other Forms Angina Pectoris) ([facility]) documented in this encounter Additional Health Concerns Assessment Noted Time PHQ-9 Depression Total Score: 6 03/16/2022 9:52 AM CDT documented as of this encounter
--- OUTSIDE RECORDS SUMMARY | 2022-09-16 08:00 | XMS_ITS | Encounter Summary ---
:1955 Author Organization [facility] Address [address] [place] [address] Care Team Providers Name Role Phone Unavailable Primary Care Provider Unavailable Reason for Referral Outpatient (Routine) - Closed Specialty Diagnoses / Procedures Referred By Contact Refer red To Contact Diagnoses Coronary Artery Disease With Stable Angina (With Other Forms Angina Pectoris) ([facility]) Benja Fry M.D. [facility] Procedures Cardiac Rehab Program [address], [address] [place], [place] [address] Referral ID Status Reason Start Date Expiration Date Visits Requ ested Visits Authorized [id number] Closed 03/12/2022 03/12/2023 36 36 Reason for Visit Outpatient (Routine) - Closed Specialty Diagnoses / Procedures Referred By Contact Refer red To Contact Diagnoses Coronary Artery Disease With Stable Angina (With Other Forms Angina Pectoris) ([facility]) [facility]ja [facility]. [facility] Procedures Cardiac Rehab Program [address], [address] [place], [place] [address] Referral ID Status Reason Start Date Expiration Date Visits Requ ested Visits Authorized [id number] Closed 03/12/2022 03/12/2023 36 36 Encounter Details Date Type Department Care Team Description 06/14/2022 Hospital Encounter Department of Cardiac Benja Fry Coronary Artery Rehabilitation ashlee Palomo M.D. Disease With Stable [place], [facility] deejay [address], Angina (With Other [address] [place] [address] [address] Forms Angina [place], [place], Pectoris) ( [facility]) [address] [place] [address] [phone] Social History Tobacco Use Types Packs/Day Years [...] Priority Associated Diagnoses Order S [facility] Cardiac Rehab Card Rehab Routine Coronary Artery Once for 1 Occurrences Program Disease With Stable starting 06/14/2022 Angina (With Other until 06/2022 Forms Angina Pectoris) ([facility]) documented as of this encounter Visit Diagnoses Diagnosis Coronary Artery Disease With Stable Vivienne na (With Other Forms Angina Pectoris) ([facility]) documented in this encounter Additional Health Concerns Assessment Noted Time PHQ-9 Depression Total Score: 6 03/16/2022 9:52 AM CDT documented as of this encounter
--- OUTSIDE RECORDS SUMMARY | 2022-09-16 08:00 | XMS_ITS | Encounter Summary ---
:1955 Author Organization [facility] Address [address] [place] [address] Care Team Providers Name Role Phone Unavailable Primary Care Provider Unavailable Reason for Referral Outpatient (Routine) - Closed Specialty Diagnoses / Procedures Referred By Contact Refer red To Contact Diagnoses Coronary Artery Disease With Stable Angina (With Other Forms Angina Pectoris) ([facility]) Benja Fry M.D. [facility] Procedures Cardiac Rehab Program [address], [address] [place], [place] [address] Referral ID Status Reason Start Date Expiration Date Visits Requ ested Visits Authorized [id number] Closed 03/12/2022 03/12/2023 36 36 Reason for Visit Outpatient (Routine) - Closed Specialty Diagnoses / Procedures Referred By Contact Refer red To Contact Diagnoses Coronary Artery Disease With Stable Angina (With Other Forms Angina Pectoris) ([facility]) Benja Fry M.D. [facility] Procedures Cardiac Rehab Program [address], [address] [place], [place] [address] Referral ID Status Reason Start Date Expiration Date Visits Requ ested Visits Authorized [id number] Closed 03/12/2022 03/12/2023 36 36 Encounter Details Date Type Department Care Team Description 06/02/2022 Hospital Encounter Department of Cardiac Benja Fry Coronary Artery Rehabilitation ashlee Palomo M.D. 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
[2022-09-16 11:55] LABS: Albumin* 4.5 g/dL (3.3-5.0); Chloride* 90 mmol/L (96-114); Sodium* 127 mmol/L (135-149)
[2022-09-16 11:56] LABS: Potassium* 4.1 mmol/L (3.6-5.1)
[2022-09-16 11:58] LABS: Alanine Aminotransferase* 21 U/L (4-50); Alkaline Phosphatase* 69 U/L (40-150); Aspartate Amino Transferase* 27 U/L (12-35); Bilirubin Total* 0.8 mg/dL (0.1-1.5); Blood Urea Nitrogen* 15 mg/dL (7-30); Carbon Dioxide* 27 mmol/L (20-32); Creatinine* 0.8 mg/dL (0.5-1.5); Estimated Glomerular Filt Rate 99 ml/min; Glucose* 97 mg/dL (60-115); Total Protein* 6.7 g/dL (6.0-8.3)
[2022-09-16 11:59] LABS: Calcium* 9.4 mg/dL (8.4-10.6)
== END 2022-09-16 08:41 | disposition home or self-care (01) ==
PROVIDERS: PCP Internal Medicine; Visit Provider Internal Medicine
DX: R68.89 Other general symptoms and signs (principal)
CPT/HCPCS: 80053

== ENCOUNTER 2024-08-25 15:21 | Emergency (ER) | payer MEDICARE, SELFPAY ==
[2024-08-25 15:22] VITALS: BP 171/85; PULSE 56; RESP 18; TEMP 37.1; O2SAT 98; BMI 32.4
--- NOTE | 2024-08-25 16:00 | ED.GENADULT ---
HPI - General Adult General Chief complaint: Laceration/Wound Stated complaint: Right index finger injury Time Seen by Provider: 08/25/24 15:42 Source: patient Mode of arrival: ambulatory Limitations: no limitations History of Present Illness HPI narrative: 68-year-old male presenting today with a laceration to the right 2nd digit after getting it caught between a log and a long splinter. Denies other injury. Tetanus shot updated in 2017. Related Data Home Medications ?Medication ?Instructions ?Recorded ?Confirmed acetaminophen 650 mg 650 mg PO DIRECTED 05/06/22 07/22/23 tablet,extended release aspirin 81 mg tablet,delayed 81 mg PO DAILY 05/06/22 07/22/23 release calcium 600 mg (as 2 tab PO DAILY 05/06/22 07/22/23 carbonate)-vitamin D3 10 mcg (400 unit) tablet nitroglycerin 0.4 mg sublingual 0.4 mg sublingual ONCE PRN 05/06/22 07/22/23 tablet isosorbide mononitrate 30 mg 15 mg PO QDAY 06/02/22 07/22/23 tablet,extended release 24 hr coenzyme Q10 10 mg capsule (Co 10 mg PO ONCE 08/04/22 07/22/23 Q-10) famotidine 20 mg tablet 20 mg PO DAILY 07/22/23 07/22/23 nebivolol 10 mg tablet 10 mg PO DAILY 07/22/23 07/22/23 tamsulosin 0.4 mg capsule 0.4 mg PO DAILY 07/22/23 07/22/23 Previous Rx's ?Medication ?Instructions ?Recorded amlodipine 5 mg tablet 5 mg PO DAILY Hypertension #90 tabs 06/02/22 clopidogrel 75 mg tablet 75 mg PO DAILY CAD #90 tabs 06/02/22 levothyroxine 125 mcg tablet 125 mcg PO DAILY #30 tabs 12/10/22 rosuvastatin 20 mg tablet 20 mg PO DAILY #90 tabs 06/28/23 cephalexin 500 mg capsule 500 mg PO TID 7 days #21 caps 08/25/24 Allergies Allergy/AdvReac Type Severity Reaction Status Date / Time No Known Allergies Allergy Unverified 07/22/23 17:45 Review of Systems Status of ROS: Reports: 6 or more systems reviewed and unremarkable except as noted in History and below [facility] Medical History Hyponatremia ?E87.1 - Hypo-osmolality and hyponatremia (ICD-10) Hypertension ?I10 - Essential (primary) hypertension (ICD-10) Coronary artery disease ?I25.10 - Atherosclerotic heart disease of [place] coronary artery without angina pectoris (ICD-10) History of placement of stent in anterior descending branch of left coronary artery ?Z95.5 - Presence of coronary angioplasty implant and graft (ICD-10) History of radioactive iodine thyroid ablation ?Z92.3 - Personal history of irradiation (ICD-10) History of adenomatous polyp of colon (07/08/15) ?Z86.010 - Personal history of colonic polyps (ICD-10) Surgical History History of femoropopliteal bypass ?Z98.890 - Other specified postprocedural states (ICD-10) Status post wrist surgery ?Z98.890 - Other specified postprocedural states (ICD-10) History of colonoscopy ?Z98.890 - Other specified postprocedural states (ICD-10) Family History Mother Breast cancer Sister Breast cancer Family/Other Stroke Father Heart disease, Onset Age: 75 Paternal Grandfather Heart disease, Onset Age: 62 Social History Narrative: consumes alcohol occasionally does not illicit drugs former smoker Smoking Status: Former smoker How often do you have a drink containing alcohol: never How often do you have six or more drinks on one occasion: Never AUDIT-C Alcohol total score: 0 Non-prescribed substance use: denies use service: No Exam Narrative: Exam Narrative: Well-nourished well-developed patient in no acute distress. Alert and oriented. Answers questions appropriately. Mood and affect are appropriate. Thoughts are goal oriented and rational. No tangential or magical thinking noted. Patient speaks in full sentences without needing to catch his breath. HEENT: Normocephalic atraumatic. Extraocular muscles are intact. Conjunctivae are moist without any icterus noted. Moist mucous membranes. Extremities: Patient has a laceration that starts in the mid medial distal phalanx and extends down finger to the mid proximal phalanx of the 2nd digit of the right hand. Laceration as penetrated through the dermis and through the subcutaneous tissue. Tendon is visible and appears to be intact. Patient can extend and flex the fingers into a fist without difficulty. Const: Vital Signs, click to edit/add: Vital Signs - 24 hr 08/25/24 15:22 Temperature 98.8 F Pulse Rate [Right Pulse Oximeter] 56 L Respiratory Rate 18 Blood Pressure [Ri ght Upper Arm] 171/85 H Pulse Oximetry 98 Oxygen Delivery Me thod Room Air Course Course ED Course: The base of the finger was cleaned in a digital block was done with 2% lidocaine. The entire wound was irrigated, explored and cleaned. Nine sutures were placed with 3.0 Ethilon. Patient tolerated the procedure well. X-ray was done of the finger, read by me, does not show any acute fractures. Vital Signs Vital signs: Initial Vital Signs Temperature 98.8 F 08/25/24 15:22 Temperature Source Temporal Artery Scan 08/25/24 15:22 Pulse Rate 56 L 08/25/24 15:22 Pulse Rhythm Regular 08/25/24 15:22 Pulse Strength 3+ Normal 08/25/24 15:22 Respiratory Rate 18 08/25/24 15:22 Blood Pressure 171/85 H 08/25/24 15:22 Blood Pressure Mean 113 H 08/25/24 15:22 Blood Pressure Position Sitting 08/25/24 15:22 Pulse Oximetry 98 08/25/24 15:22 Oxygen Delivery Method Room Air 08/25/24 15:22 Vital Signs Temperature 98.8 F 08/25/24 15:22 Pulse Rate 56 L 08/25/24 15:22 Respiratory Rate 18 08/25/24 15:22 Blood Pressure 171/85 H 08/25/24 15:22 Pulse Oximetry 98 08/25/24 15:22 Oxygen Delivery Method Room Air 08/25/24 15:22 Temperature 98.8 F 08/25/24 15:22 Pulse Rate 56 L 08/25/24 15:22 Respiratory Rate 18 08/25/24 15:22 Blood Pressure 171/85 H 08/25/24 15:22 Pulse Oximetry 98 08/25/24 15:22 Oxygen Delivery Method Room Air 08/25/24 15:22 Medical Decision Making MDM Narrative Medical decision making narrative: Large, deep laceration of the 2nd digit of the right hand. Sutured per above. Tetanus shot up-to-date. Patient will be placed on Keflex 3 times a day for a week. We discussed wound hygiene, signs and symptoms of infection reasons to return to the ER. Discharge Plan Discharge Clinical Impression: Laceration Patient Disposition: Home, Self-Care Condition: Improved Additional Instructions: Your x-ray did not show any evidence of fractures. Because your laceration was so deep, you do need to be on antibiotics. Pick these up today or tomorrow morning and start as prescribed. Keep wound clean and dry. Do not soak such as taking baths, swimming or doing dishes. Follow-up in approximately 1 week for suture removal with your primary care provider. Watch for signs and symptoms of infection including increasing redness of the area, purulent drainage, or fever. If this occurs follow-up right away with your doctor or return to the ER. Prescriptions: New cephalexin 500 mg capsule 500 mg PO TID 7 Days Qty: 21 0RF No Action amlodipine 5 mg tablet 5 mg PO DAILY Qty: 90 2RF clopidogrel 75 mg tablet 75 mg PO DAILY Qty: 90 3RF isosorbide mononitrate 30 mg tablet extended release 24 hr 15 mg PO QDAY famotidine 20 mg tablet 20 mg PO DAILY tamsulosin 0.4 mg capsule 0.4 mg PO DAILY nebivolol 10 mg tablet 10 mg PO DAILY calcium carbonate-vitamin D3 600 mg-10 mcg (400 unit) tablet 2 tab PO DAILY acetaminophen 650 mg tablet extended release 650 mg PO DIRECTED Rx Instructions: 1300 mg am 1300 mg pm 1300 hs aspirin 81 mg tablet,delayed release (DR/EC) 81 mg PO DAILY nitroglycerin 0.4 mg tablet, sublingual 0.4 mg sublingual ONCE PRN coenzyme Q10 [Co Q-10] 10 mg capsule 10 mg PO ONCE levothyroxine 125 mcg tablet 125 mcg PO DAILY Qty: 30 0RF rosuvastatin 20 mg tablet 20 mg PO DAILY Qty: 90 0RF Follow Up/Referrals: Flako Pierre MD [Staff Physician] - Stand Alone Forms: [employer] Info Instructions
--- OUTSIDE RECORDS SUMMARY | 2024-08-25 16:00 | XMS_ITS | Continuity of Care Document ---
Author Organization [facility] Address [address] [place] [address] Phone Care Team Providers Care Baggagemaster Name Role Phone Karla Finley MD Unavailable Unavailable Allergies, Adverse Reactions, Alerts Substance Reaction Status Criticality No Known Allergies Active No Inform ation Medications Medication Instructions Dosage Effective Dates (start - stop) Status Comments hydrocodone 5 mg-acetaminophen 325 mg tablet take 1-2 tablet by oral route every 4-6 hours as needed for acute post surgical pain - Active FAMOTIDINE (unknown strength) Not Available - Active TAMSULOSIN HCL (unknown strength) Not Available - Active NEBIVOLOL HCL (unknown strength) Not Available - Active ISOSORBIDE (unknown strength) Not Available - Active NEBIVOLOL HCL (unknown strength) Not Available - Active METOCLOPRAMIDE HCL (unknown strength) Not Available - Active AMLODIPINE BESYLATE (unknown strength) Not Available - Active ROSUVASTATIN CALCIUM (unknown strength) Not Available - Active ACETAMINOPHEN (unknown strength) Not Available - Active ASPIRIN (unknown strength) Not Available - Active LEVOTHYROXINE SODIUM (unknown strength) Not Available - Active Procedures Procedure Date Postop Followup Visit Lami, Facetectomy/Foraminotomy, Lumbar ( Stenosis) Lami, Facetectomy/Foraminotomy - Additio nal Level(s) - PA Lami, Facetectomy/Foraminotomy, Lumbar ( Stenosis) Lami, Facetectomy/Foraminotomy - Additio nal Level(s) Office/Outpatient Visit,Est, Mod 2022 Office/Outpatient Visit,New, [place] 2022 [facility]09 VW Advance Directives Directive Yes / No Effective Date File Name No Information Encounters Encounter Description Practice Location Reason(s) For Visit Diagnoses Date Provider Providers Copied on Encounter [facility], [address], [place], [place], [id number], [place] tel:[phone] [facility] No Information 4 Pawanamanda Acosta. [facility], [address], [place], [address], [place]. [phone] [facility], [address], [place], [place], [id number], [place] tel:[phone] [facility] Encounter for other specified surgical aftercare 4 Pawanamanda Karla. [facility], [address], [place], [address], [place]. [phone] Referring Provider: Maninder Begum, [facility] [address], [place], [address]. tel:[phone] [facility], [address], [place], [place], [id number], [place] tel:[phone] [facility] No Information 4 Lindsay Fair. [facility], [address], [address], [place], [address], [place]. tel:[phone] Referring Provider: Maninder Beugm, [facility] [address], [place], [address]. tel:[phone] [facility], [address], [place], [place], [id number], [place] tel:[phone] [facility] No Information 4 Tushar Acosta. [facility], [address], [place], [address], [place]. [phone] [facility], [address], [place], [place], [id number], [place] tel:[phone] [facility] No Information 4 Tushar Acosta. [facility], [address], [place], [address], [place]. [phone] Referring Provider: Maninder Begum, [facility] [address], [place], [address]. tel:[phone] Office/Outpat ient Visit,Est, Mod [facility], [address], [place], [id number], [place] tel:[phone] [facility] Spinal stenosis, lumbar region with neurogenic claudication 3 Tushar Acosta. [facility], [address], [place], [address], [place]. [phone] Referring Provider: Maninder Begum [facility] [address], [place], [address]. tel:[phone] Office/Outpat ient Visit,New, Mod [facility], [address], [place], [id number], [place] tel:[phone] [facility] Spinal stenosis, lumbar region with neurogenic claudication 3 Tushar Acosta. [facility], [address], [place], [address], [place]. [phone] Referring Provider: Maninder Begum [facility] [address], [place], [address]. tel:[phone] Family History Family Member Type Diagnosis Age At Onset No Information Payers Payer name Insurance type Covered libertarian ID Harshil burden(s) AAR Medicare Complete [facility] CI [id number] Social History Type Description Quantity Date Captured Comments Sex Male Smoking Status No Information Chief Complaint And Reason For Visit No Information Reason For Referral Reason For Referral No Information Plan Of Treatment Date Type Action Status Future Order: Radiology Order F/ E Lumbar (F/ELumb), Ordered on: Ordered Future Order: Radiology Order PA /Lateral Full Spine (PALatFS), Ordered on: Ordered History Of Present Illness Encounter Date Complaint History Of Prese nt Illness No Information Functional Status Date Functional Assessmen t No Information Instructions Date Instruction Additional Infor mation No Information Assessments Type Assessment Date No Information Patient Care Teams Name Effective Dates (start - stop) Status Members No Information
--- OUTSIDE RECORDS SUMMARY | 2024-08-25 16:01 | XMS_ITS | Clinical Summary ---
Author Organization [facility] Address [address] [place] [address] Care Team Providers Care Double Ending Machine Operator Name Role Phone Elsewhere, Pcp Primary Care Provider Unavailabl e Source Comments Patient records contain information from all sites at [facility]. For routine questions regarding patient records, call [phone] during business hours, M-F 8:00 AM - 5:00 PM Central Time. Record requests for emergency care only can be directed to [phone] at any time.[facility] Allergies No known active allergies Medications amLODIPine (NORVASC) 5 mg tablet Take 5 mg by mouth daily. Active aspirin [address] tablet Take 81 mg by mouth daily. Active clopidogreL (PLAVIX) 75 mg tablet Take 75 mg by mouth daily. Active levothyroxine (SYNTHROID, LEVOTHROID) 125 mcg tablet Take 125 mcg by mouth every morning before breakfast. Active metoprolol tartrate (LOPRESSOR) 25 mg tablet Take 25 mg by mouth 2 (two) times a day. Active nitroglycerin (NITROSTAT) 0.[address] 0.4 mg under the tongue every 5 (five) minutes as needed for chest pain. Active rosuvastatin (CRESTOR) 20 mg tablet Take 20 mg by mouth daily. Active oxyCODONE (ROXICODONE) 5 mg immediate release tabletIndicatio ns:Acute Pain Take 1 tablet (5 mg total) by mouth every 4 (four) hours as needed for pain Indication: Acute Pain. 12 tablet 04/28/2023 Active Immunizations Name Administration Dates Next Due Tdap 04/28/2023 Social History Tobacco Use Types Packs/Day Years Used Date Smoking Tobacco: Former Cigarettes Smokeless Tobacco: Never Tobacco Cessation:Counseling Given: Not Answered PHQ-2 Answer Date Recorded PHQ-2 Score 2 03/16/2022 Depression Answer Date Recor ded PHQ-9 Total Score (max 27) 6 03/16 Nutrition Answer Date Recorded Nutrition: EVOO Fat Source Unknown 01/18 Nutrition: Servings of Fruits/Vegetables per Day Not on file 01/18/2022 Dental Answer Date Recorded Dental: Regular Dentist Unknown 01/19/20 Sex and Gender Information Value Date Recorded Sex Assigned at Not on file Legal Sex Male 2:36 PM CDT Gender Identity Not on file Sexual Orientation Not on file Last Filed Vital Signs Vital Sign Reading Time Taken Comments Blood Pressure 158/91 04/28/2023 8:34 PM CDT Pulse 70 04/28/2023 8:34 PM CDT Temperature - - Respiratory Rate 16 04/28/2023 8:34 PM CDT Oxygen Saturation 98% 04/28/2023 8:34 PM CDT Inhaled Oxygen Concentration - - Weight 88.8 kg (195 lb 12.3 oz) 04/28/2023 8:32 PM CDT Height 172.7 cm (5' 7.99) 08/31/2022 1 1:00 AM CDT Body Mass Index 29.77 08/31/2022 11:00 AM CDT Plan of Treatment Health Maintenance Due Date Last Done Comments Abdominal Aortic Aneurysm (A AA) Screen 1957 CT Colonography 1955 Cologuard 1957 FIT 1955 Hepatitis C Screening 1955 Zoster Vaccines (2 of 2) 09/12/2023 07/18/2023 Depression Screening (Annual PHQ-2) 11/07/2023 Fall Risk Screen (Annual) 11/07/2023 COVID-19 Vaccine (2023-2 5 season) 2024 10/17/2023, 09/02/2022, 03/09/2022, Additional history exists Thyroid Stimulating Hormone (TSH) test for thyroid function 07/18/2024 07/18/2023, 12/27/2022 Influenza Vaccine (#1) 2024 , 09/02/2022, 09/28/2021, Additional history exists Fasting Glucose for Diabetes Screening 11/11/2026 11/11/2023, 07/18/2023, 12/16/2022, Additional history exists Colonoscopy 05/20/2030 05/20/2020 Colorectal Cancer Screening 05/20/2030 DTaP,Tdap,and Td Vaccines (3 - Td or Tdap) 04/28/2033 04/28/2023, 06/10/2017 Pneumococcal vaccine (65+ years) Completed 07/18/20 23 Procedures Procedure Name Priority Date/Time Associated Diagnosis Comments BASIC METABOLIC PANEL, S/P Routine 11/30/2022 8:58 AM SCRAP BALLER Other Chest Pain from Last 3 Months or Most Recently Relevant to Health Maintenance Results * (ABNORMAL) Basic Metabolic Panel (11/30/2022 8:58 AM SCRAP BALLER) Potassium, P 4.4 3.6 - 5.2 mmol/L 11/30/2022 9:27 AM SCRAP BALLER NPRG Sodium, P 128(L) 135 - 145 mmol/L 11/30/2022 9:27 AM SCRAP BALLER NPRG Chloride, P 93(L) 98 - 107 mmol/L 11/30/2022 9:27 AM SCRAP BALLER NPRG Bicarbonate, P 25 22 - 29 mmol/L 11/30/2022 9:27 AM SCRAP BALLER NPRG Anion Gap, P 10 7 - 15 11/30/2022 9:27 AM SCRAP BALLER NPRG BUN (Blood Urea Nitrogen), P 18 8 - 24 mg/dL 11/30/2022 9:27 AM SCRAP BALLER NPRG Creatinine 0.90 0.74 - 1.35 mg/dL 11/30/2022 9:27 AM SCRAP BALLER NPRG Estimated GFR (eGFR) >90 >=60 mL/min/BSA 11/30/2022 9:27 AM SCRAP BALLER NPRG Comment: Estimated GFR calculated using the 2020 CKD_EPI creatinine equation. Calcium, Total, P 9.5 8.8 - 10.2 mg/dL 11/30/2022 9:27 AM SCRAP BALLER NPRG Glucose, P 94 70 - 140 mg/dL 11/30/2022 9:27 AM SCRAP BALLER NPRG Blood (Blood, Venous) 11/30/2022 8:58 AM SCRAP BALLER 11/30/2022 9:09 AM SCRAP BALLER us Abilio Qureshi M.D. LAB BLOOD ADD-ON Final Resul t [facility] [address] [place] [address], [place] NPRG [facility] [address] [place] [address] from Last 3 Months or Most Recently Relevant to Health Maintenance Insurance [employer] Care Teams Double Ending Machine Operator Relationship Specialty Start Date End Date Elsewhere, Pcp PCP - General Internal Medicine 04/28/23
--- OUTSIDE RECORDS SUMMARY | 2024-08-25 16:01 | XMS_ITS | Clinical Summary ---
Author Organization [facility] Address [place], [place] [address] Care Team Providers Care Sociology Faculty Member Name Role Phone Pranav Acosta MD Primary Care Provider Allergies No known active allergies Medications Medication Sig Dispensed Refills Start Date End Date Status multivitamins-min erals-lutein (CENTRUM SILVER) tab tablet Take 1 Tablet by mouth once daily. 0 07/16/2011 Active calcium 600 mg capsule Take 2 capsules by mouth once daily. 0 07/16/2011 Active nitroglycerin (NITROSTAT) 0.[address] 0.4 mg under the tongue every 5 minutes if needed for Chest Pain. 01/01/2022 Active acetaminophen SR (TYLENOL ARTHRITIS) 650 mg Extended-Release tablet Take 1,300 mg by mouth every 8 hours. Max acetaminophen dose: 4000mg in 24 hrs. Active coenzyme q10 (Co Q-10) 100 mg cap Take by mouth once daily in the evening. Active calcium carbonate (Tums) 200 mg calcium (500 mg) chewable tablet Chew 500-1,000 mg by mouth three times daily with meals. Active sennosides-docusa te (SENOKOT S) (8.6-50 mg) tabletIndications :Constipation due to opioid therapy Take 1 Tablet by mouth once daily. 20 Tablet 11/15/2023 Active aspirin (ECOTRIN) 81 mg enteric coated tablet Take 81 mg by mouth once daily with a meal. Active nebivoloL (BYSTOLIC) 20 mg tabIndications:Es sential hypertension Take 1 Tablet (20 mg) by mouth once daily. 90 Tablet 2 04/03/2024 Active amLODIPine (NORVASC) 5 mg tabletIndications :HTN (hypertension) Take 1 Tablet (5 mg) by mouth two times daily. 180 Tablet 3 05/21/2024 Active isosorbide mononitrate (IMDUR) 60 mg extended release tablet 24 hourIndications:C AD S/P percutaneous coronary angioplasty Take 1 Tablet (60 mg) by mouth once daily. 90 Tablet 06/05/2024 Active famotidine (PEPCID) 20 mg tabletIndications :Chronic GERD TAKE 1 TABLET BY MOUTH AT BEDTIME 90 Tablet 06/26/2024 Active levothyroxine (SYNTHROID) 125 mcg tabletIndications :Hypothyroidism (acquired) Take 1 Tablet (125 mcg) by mouth once daily. 90 Tablet 3 07/30/2024 Active rosuvastatin (CRESTOR) 20 mg tabletIndications :CAD S/P percutaneous coronary angioplasty Take 1 Tablet (20 mg) by mouth at bedtime. 90 Tablet 3 07/30/2024 Active tamsulosin (FLOMAX) 0.4 mg capsuleIndication s:BPH without urinary obstruction Take 1 Capsule (0.4 mg) by mouth once daily after a meal. 90 Capsule 3 07/30/2024 Active celecoxib (CeleBREX) 100 mg capsuleIndication s:Bilateral chronic knee pain Take 1 Capsule (100 mg) by mouth two times daily with meals. 120 Capsule 3 08/10/2024 Active levothyroxine (SYNTHROID) 125 mcg tabletIndications :Hypothyroidism (acquired) Take 1 Tablet (125 mcg) by mouth once daily. 90 Tablet 3 07/18/2023 07/27/20 24 Discontinu ed(Reorder (E-cancel not sent)) rosuvastatin (CRESTOR) 20 mg tabletIndications :CAD S/P percutaneous coronary angioplasty Take 1 Tablet (20 mg) by mouth at bedtime. 90 Tablet 3 07/18/2023 07/27/20 24 Discontinu ed(Reorder (E-cancel not sent)) tamsulosin (FLOMAX) 0.4 mg capsuleIndication s:BPH without urinary obstruction TAKE 1 CAPSULE BY MOUTH ONCE DAILY AFTER A MEAL 90 Capsule 06/26/2024 07/27/20 24 Discontinu ed(Reorder (E-cancel not sent)) Hospital, Clinic, or Other Facility Administered Medication Ordered Dose Route Frequency Start Date End Date Status triamcinolone acetonide (KENALOG) injection 40 mgIndications:Rotator cuff tendonitis, left 40 mg IArtic ONE TIME 08/21/2024 08/21/2024 Ended triamcinolone acetonide (KENALOG) injection 40 mgIndications:Rotator cuff tendonitis, right 40 mg IArtic ONE TIME 08/21/2024 08/21/2024 Ended Active Problems Problem Noted Date Diagnosed Date Spinal stenosis of lumbosacral region with radic ulopathy 11/11/2023 Coronary artery disease of n ative artery of [place] heart with stable angina pectoris 11/11/2023 Irritable bowel syndrome wit h both constipation and diarrhea 07/18/2023 Peripheral vascular disease with claudication S/P angiogram of extremity 05/18/2022 S/P insertion of iliac artery stent 05/18/2022 Overview (05/18/2022): Bilateral iliac artery stents CAD S/P percutaneous coronary angioplasty 2021 Overview (03/04/2022): - 01/13/22: s/p rotational atherectomy and NOAH X 2 mLAD *consider staged intervention to RCA - 03/02/22: complex PCI of severely diseased RCA; rotational atherectomy utilized; s/p NOAH pRCA, s/p NOAH mRCA, s/p NOAH dRCA Paroxysmal atrial fibrillation 07/16/2011 Erectile dysfunction 07/16/2011 Cardiovascular symptoms Resolved Problems Problem Noted Date Diagnosed Date Resolved Date Iliac artery occlusion, 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 12/28/2022 Encounters Date Type Department Care Team Description 08/21/2024 8:45 AM CDT Ancillary Procedure [facility] [address] [address] 08/21/2024 8:30 AM CDT Office Visit [facility] [address] [facility] [address] [place] [address] Dilip Clifton MD Shoulder Pain/problem (Bilateral shoulder pain) 08/21/2024 Travel 08/19/2024 Travel 08/10/2024 9:05 AM CDT Ancillary Procedure [address] [place] [address] 08/10/2024 9:00 AM CDT Office Visit [facility] [address] [place] [address] Adrienne Mckinney MD Knee Pain/problem (Chronic bilateral knee pain) 08/10/2024 Travel 07/30/2024 4:00 PM CDT Office Visit [facility] [address] [facility] [place] [phone] Pranav Acosta MD Medicare ANNUAL (subsequent) Visit; Immunization/Inject ion 07/30/2024 Travel 06/23/2024 Refill [facility] [address] [facility] [place] [phone] Pranav Acosta MD Refill Request (Tamsulosin, Famotidine) 06/05/[address] [place] [address] Abilio Qureshi MD Refill Request (Isosorbide Mononitrate) from Last 3 Months Immunizations Name Administration Dates Next Due COVID-19 VACCINE SPIKEVAX (M ODERNA 50MCG/0.5ML) 12YO+ PFS 07/30/2024 Influenza RIV4 (Age 18+ Years) PRESERV FREE 02/2020 Influenza, IIV4 09/02/2022,09/28/2021,08/12/2021 Influenza, Inactivated AIIV4 (Age 65+ Years) Preserv Free 07/18/2023 Influenza, Inactivated IIV3 (Age 65+ Years) Preserv Free 07/30/2024 Pneumococcal Conj 20-valent (Prevnar 20) 023 Tdap 04/28/2023,06/10/2017 Zoster (Shingrix-RZV, recombinant) 02/05/2024, Social History Tobacco Use Types Packs/Day Years Used Date Smoking Tobacco: Former Cigarettes 2 33 0 11/07/1973 - 11/15/2005 Smokeless Tobacco: Never Tobacco Cessation:Counseling Given: Not Answered Comments:TIP 01/14/22 Alcohol Use Standard Drinks/Week Comments Yes 2 (1 standard drink = 0.6 oz pur e alcohol) PHQ-2 Answer Date Recorded PHQ-2 TOTAL SCORE 2 07/30/2024 Social Connections Answer Date Recorded Frequency of Communication with Friends and Fami ly 0 12/27/2022 Financial Resource Strain Answer Date R ecorded Difficulty of Paying Living Expenses 3 12/27/2022 Difficulty of Paying Living Expenses Not on file 12/27/2022 Food Insecurity Answer Date Recorded Worried About Running Out of Food in the Last Ye ar 1 12/27/2022 Transportation Needs Answer Date Record ed Lack of Transportation (Medical) 1 12/27/2022 Housing Stability Answer Date Recorded Unable to Pay for Housing in the Last Year 1 12/27/2022 Sex and Gender Information Value Date Recorded Sex Assigned at Not on file Gender Identity Not on file Sexual Orientation Not on file Obstetrics History Last Filed Vital Signs Vital Sign Reading Time Taken Comments Blood Pressure 130/72 07/30/2024 3:55 PM CDT Pulse 64 07/30/2024 3:55 PM CDT Temperature 36.9 ??C (98.5 ??F) 02/10/2024 10:08 AM C DT Respiratory Rate 16 01/11/2024 10:57 AM 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 PASTEURIZER Oxygen Saturation 100% 04/03/2024 8:15 AM CDT Inhaled Oxygen Concentration - - Weight 87.1 kg (192 lb) 07/30/2024 3:55 PM CDT Height 166 cm (5' 5.35) 07/30/2024 3:55 PM CDT Body Mass Index 31.61 07/30/2024 3:55 PM CDT Plan of Treatment Upcoming Encounters Date Type Department Care Team (Late st Contact Info) Description 09/11/2024 8:00 AM WINE PASTEURIZER Office Visit [facility] [address] [place] [address] Abilio Qureshi MD [address] [place] [address] 09/21/2024 8:00 AM WINE PASTEURIZER Office Visit [facility] [address] [facility] [address] [place] [address] [place] [address] [facility] [address] [place] [address] Health Maintenance Due Date Last Done Comments AAA screening age 65-74 2022 03/03/2022 Colonoscopy through age 75 05/20/2025 05/20/2020, BMI (ht and wt on same day) for age 18+ 07/30/2025 07/30/2024, 02/10/2024, 11/11/2023, Additional history exists Medicare Wellness for age 65+ 07/31/2025 07/30/2024, 07/18/2023 Depression screening for age 12+ 08/10/2025 08/10/2024, 07/30/2024, 07/18/2023 Lipids for age 45-75 07/30/2029 07/30/2024, 07/18/2023, 03/02/2022 Tetanus booster 04/28/2033 04/28/2023, 06/10/2017 Tdap Completed 04/28/2023, 06/10/2017 Hepatitis C screening for ag e 18-79 Completed 07/18/2023 Pneumococcal series for age 65+ Completed Zoster (shingles) series for age 50+ Completed 02/05/2024, 07/18/2023 COVID-19 vaccine series Completed 07/30/20 24, 10/17/2023, 09/02/2022, Additional history exists Influenza for age 65+ Completed 07/30/2024 , 07/18/2023, 09/02/2022, Additional history exists Procedures Procedure Name Priority Date/Time Associated Diagnosis Comments XR SHOULDER 4 VIEWS BILATERAL Routine 08/21/2024 8:57 AM CDT Chronic pain of both shoulders XR KNEE WB 1 VIEW AP BILATERAL AND 2 VIEWS BILATERAL Routine 08/10/2024 9:10 AM CDT Bilateral chronic knee pain CBC WITH AUTO DIFFERENTIAL Routine 07/30/2024 4:44 PM CDT HEMOGLOBIN A1C Routine 07/30/2024 4:44 PM CDT Impaired fasting glucose PSA (TOTAL) (QUEST) Routine 07/30/2024 4 :44 PM CDT Screening PSA (prostate specific antigen) LIPID PANEL W REFLEX MEASURED LDL Routine 07/30/2024 4:44 PM CDT CAD S/P percutaneous coronary angioplasty TSH Routine 07/30/2024 4:44 PM CDT Hypothyroidism (acquired) BASIC METABOLIC PANEL Routine 07/30/2024 4:44 PM CDT Medicare annual wellness visit, subsequent ANTI HCV Routine 07/18/2023 2:47 PM CDT Encounter for hepatitis C screening test for low risk patient CT ABDOMEN PELVIS WWO Routine 03/03/2022 1:32 PM CDT SCAN-COLONOSCOPY 05/20/2020 12:0 0 AM CDT from Last 3 Months or Most Recently Relevant to Health Maintenance Results * XR SHOULDER 4 VIEWS BILATERAL (08/21/2024 8:57 AM CDT) Anatomical Region Laterality Modality Digital Radiogra phy 08/22/2024 11:1 4 AM CDT Narrative 08/22/2024 11:14 AM CDT For Patients: ??As a result of the Century Cures Act, medical imaging exams and procedure reports are released immediately into your electronic medical record. ??You may view this report before your referring provider. ??If you have questions, please contact your health care provider. INDICATION: Chronic bilateral shoulder pain. TECHNIQUE: Four views of each shoulder. FINDINGS: Minimal bilateral glenohumeral joint degenerative change. Moderate left and mild right AC joint arthrosis. Bilateral subacromial spurring. Subacromial spaces are preserved. Dictated by Marky Camacho MD @ 08/22/2024 11:14:37 AM (Electronically Signed) Procedure Note Marky Camacho MD - 08/22/2024 For Patients: As a result of the Cures Act, medical imagingexams and procedure reports are released immediately into your electronicmedical record. You may view this report before your referring provider.If you have questions, please contact your health care provider. INDICATION: Chronic bilateral shoulder pain. TECHNIQUE: Four views of each shoulder. FINDINGS: Minimal bilateral glenohumeral joint degenerative change. Moderate leftand mild right AC joint arthrosis. Bilateral subacromial spurring.Subacromial spaces are preserved. Dictated by Marky Camacho MD @ 08/22/2024 11:14:37 AM (Electronically Signed) Dilip Clifton MD GENERAL IMAGING * XR KNEE WB 1 VIEW AP BILATERAL AND 2 VIEWS BILATERAL (08/10/2024 9:10 AM CDT) Anatomical Region Laterality Modality KNEES Computed Radiogr aphy 08/10/2024 9:10 AM CDT Impressions 08/10/2024 10:00 AM CDT RIGHT KNEE: Moderate osteoarthritis medial femoral tibial compartment with joint space narrowing and marginal spurring. Milder osteoarthritis in the patellofemoral compartment. No fracture or effusion. LEFT KNEE: Moderate osteoarthritis medial femoral tibial compartment with joint space narrowing. Milder osteoarthritis in the patellofemoral compartment. No fracture or effusion. Narrative 08/10/2024 10:00 AM CDT For Patients: As a result of the Cures Act, medical imaging exams and procedure reports are released immediately into your electronic medical record. You may view this report before your referring provider. If you have questions, please contact your health care provider. EXAM: XR KNEE WB 1 VIEW AP BILATERAL AND 2 VIEWS BILATERAL LOCATION: [facility] DATE: 08/10/2024 INDICATION: Chronic bilateral knee pain. COMPARISON: None. Procedure Note Pranav Ingram MD - 08/10/2024 For Patients: As a result of the Cures Act, medical imagingexams and procedure reports are released immediately into your electronicmedical record. You may view this report before your referring provider.If you have questions, please contact your health care provider. EXAM: XR KNEE WB 1 VIEW AP BILATERAL AND 2 VIEWS BILATERAL LOCATION: [facility] DATE: 08/10/2024 INDICATION: Chronic bilateral knee pain. COMPARISON: None. IMPRESSION: RIGHT KNEE: Moderate osteoarthritis medial femoral tibial compartment withjoint space narrowing and marginal spurring. Milder osteoarthritis in thepatellofemoral compartment. No fracture or effusion. LEFT KNEE: Moderate osteoarthritis medial femoral tibial compartment withjoint space narrowing. Milder osteoarthritis in the patellofemoralcompartment. No fracture or effusion. Adrienne Rolon MD GENER AL IMAGING * PSA (TOTAL) ([facility]) (07/30/2024 4:44 PM CDT) Pathologist [facility] PSA, TOTAL 0.52 < OR = 4.00 ng/mL [facility] Comment: The total PSA value from this assay system is standardized against the WHO standard. The test result will be approximately 20% lower when compared to the equimolar-standardized total PSA (Bill Richford). Comparison of serial PSA results should be interpreted with this fact in mind. This test was performed using the Siemens chemiluminescent method. Values obtained from different assay methods cannot be used interchangeably. PSA levels, regardless of value, should not be interpreted as absolute evidence of the presence or absence of disease. Blood BLOOD SPECIMEN / Unknown 07/30/2024 4:44 PM CDT 07/30/2024 4:45 PM CDT Pranav Acosta MD SEND OUTS [employer] [address] [place] [address], [employer] [facility] [address] [place] [address] * (ABNORMAL) CBC WITH AUTO DIFFERENTIAL (07/30/2024 4:44 PM CDT) Pathologist [facility] WHITE BLOOD CELL COUNT 8.3 3.8 - 10.8 Thousand/u L [facility] RED BLOOD CELL COUNT 3.99(L) 4.20 - 5.80 Million/uL [facility] HEMOGLOBIN 13.0(L) 13.2 - 17.1 g/dL [facility] HEMATOCRIT 38.0(L) 38.5 - 50.0 % [facility] MCV 95.2 80.0 - 100.0 fL [facility] MCH 32.6 27.0 - 33.0 pg [facility] MCHC 34.2 32.0 - 36.0 g/dL [facility] RDW 12.0 11.0 - 15.0 % [facility] PLATELET COUNT 251 140 - 400 Thousand/u L [facility] MPV 9.2 7.5 - 12.5 fL [facility] ABSOLUTE NEUTROPHILS 6,607 1,500 - 7,800 cells/uL [facility] ABSOLUTE LYMPHOCYTES 1,062 850 - 3,900 cells/uL [facility] ABSOLUTE MONOCYTES 540 200 - 950 cells/uL [facility] ABSOLUTE EOSINOPHILS 58 15 - 500 cells/uL [facility] ABSOLUTE BASOPHILS 33 0 - 200 cells/uL [facility] NEUTROPHILS 79.6 % [facility] LYMPHOCYTES 12.8 % [facility] MONOCYTES 6.5 % [facility] EOSINOPHILS 0.7 % [facility] BASOPHILS 0.4 % [facility] 07/30/2024 4:44 PM CDT 07/30/2024 4:45 PM CDT Pranav Acosta MD HEMATOLOGY [facility] [address] [place] [address], [facility] [address] [place] [address] * HEMOGLOBIN A1C SCREENING (07/30/2024 4:44 PM CDT) HEMOGLOBIN A1C 5.4 <5.7 % of total Hgb [facility] Comment: For the purpose of screening for the presence of diabetes: <5.7% ? Consistent with the absence of diabetes 5.7-6.4% ?Consistent with increased risk for diabetes ?(prediabetes) > or =6.5% ??Consistent with diabetes This assay result is consistent with a decreased risk of diabetes. Currently, no consensus exists regarding use of hemoglobin A1c for diagnosis of diabetes in children. According to [place] Diabetes Association (ADA) guidelines, hemoglobin A1c <7.0% represents optimal control in non- diabetic patients. Different metrics may apply to specific patient populations. Standards of Medical Care in Diabetes(ADA). ? This test was performed on the Cheryl danny c503 platform. Effective 01/11/24, a change in test platforms from the Freire Planimeter Operator to the Cheryl danny c503 may have shifted HbA1c results compared to historical results. Based on laboratory validation testing conducted at [email or web address], the Cheryl platform relative to the Freire platform had an average increase in HbA1c value of < or = 0.3%. This difference is within accepted variability established by the National Glycohemoglobin Standardization Program. Note that not all individuals will have had a shift in their results and direct comparisons between historical and current results for testing conducted on different platforms is not recommended. Blood BLOOD SPECIMEN / Unknown 07/30/2024 4:44 PM CDT 07/30/2024 4:45 PM CDT Pranav Acosta MD CHEMISTRY [facility] [address] [place] [address], [email or web address] [address] [place] [address] * LIPID PANEL W REFLEX MEASURED LDL (07/30/2024 4:44 PM CDT) [facility] CHOLESTEROL, TOTAL 117 <200 mg/dL [facility] HDL CHOLESTEROL 60 > OR = 40 mg/dL [facility] TRIGLYCERIDES 86 <150 mg/dL [facility] LDL-CHOLESTEROL 40 mg/dL (calc) [facility] Comment: Reference range: <100 Desirable range <100 mg/dL for primary prevention; ?? <70 mg/dL for patients with CHD or diabetic patients with > or = 2 CHD risk factors. LDL-C is now calculated using the Raine calculation, which is a validated novel method providing better accuracy than the Friedewald equation in the estimation of LDL-C. Germain SS et al. KELIN. 2013;310(19): 7122-3388 (http://education.OMGPOP/faq/AAM000) CHOL/HDLC RATIO 2.0 <5.0 (calc) [facility] NON HDL CHOLESTEROL 57 <130 mg/dL (calc) [facility] Comment: For patients with diabetes plus 1 major ASCVD risk factor, treating to a non-HDL-C goal of <100 mg/dL (LDL-C of <70 mg/dL) is considered a therapeutic option. Blood BLOOD SPECIMEN / Unknown 07/30/2024 4:44 PM CDT 07/30/2024 4:45 PM CDT Pranav Acosta MD CHEMISTRY Performing Organization Address City/[facility]/ZIP Co de Phone Number [facility] [address] [place] [address], [employer] [facility] [address] [place] [phone] * TSH (07/30/2024 4:44 PM CDT) TSH 0.96 0.40 - 4.50 mIU/L [email or web address] Blood BLOOD SPECIMEN / Unknown 07/30/2024 4:44 PM CDT 07/30/2024 4:45 PM CDT Pranav Acosta MD CHEMISTRY Performing Organization Address City/[facility]/ZIP Co de Phone Number [facility] [address] [place] [address], [employer] [facility] [address] [place] [address] * BASIC METABOLIC PANEL (07/30/2024 4:44 PM CDT) Pathologist [facility] GLUCOSE 87 65 - 99 mg/dL [facility] Comment: ? Fasting reference interval UREA NITROGEN (BUN) 18 7 - 25 mg/dL [facility] CREATININE 0.99 0.70 - 1.35 mg/dL [facility] EGFR 84 > OR = 60 mL/min/1. 73m2 [facility] BUN/CREATININE RATIO SEE NOTE: 6 - 22 (calc) [facility] Comment: ?? Not Reported: BUN and Creatinine are within ?? reference range. ? SODIUM 135 135 - 146 mmol/L [facility] POTASSIUM 4.1 3.5 - 5.3 mmol/L [facility] CHLORIDE 101 98 - 110 mmol/L [facility] CARBON DIOXIDE 21 20 - 32 mmol/L [facility] ELECTROLYTE BALANCE 13 7 - 17 mmol/L (calc) [facility] CALCIUM 9.8 8.6 - 10.3 mg/dL [facility] Blood BLOOD SPECIMEN / Unknown 07/30/2024 4:44 PM CDT 07/30/2024 4:45 PM CDT Pranav Acosta MD CHEMISTRY [facility] [address] [place] [address], [employer] [facility] [address] [place] [address] * ANTI HCV (07/18/2023 2:47 PM CDT) [facility] HEPATITIS C ANTIBODY Non-Reacti ve Non-React nathan 07/19/2023 1:03 PM CDT [facility] Comment:Please note, per www .CDC.gov: If a patient is known to be at high risk of HCV infection, or is symptomatic, and the physician's suspicion of HCV infection is high, HCV RNA testing is often employed and is of diagnostic value, even after an initial negative anti-HCV test result. Blood BLOOD SPECIMEN / Unknown Venipuncture / Unknown 07/18/2023 2:47 PM CDT 07/18/2023 2:48 PM CDT Pranav Acosta MD SEND OUTS [facility] SENDOUT INTERNAL ZIP [id number] [address] [place] [address] * CT ABDOMEN PELVIS WWO (03/03/2022 1:32 PM CDT) Anatomical Region Laterality Modality Abdomen, Pelvis, AORTA, LIVER, SPLEEN Computed Tomography 03/03/2022 2:32 PM CDT Impressions 03/03/2022 2:32 PM CDT 1. Fat stranding in the right retroperitoneum most likely representing ill- defined hemorrhage with expansion of the psoas and iliopsoas muscle consistent with intramuscular hematoma. No extravasation on arterial or venous phase imaging to suggest active bleeding. Please note that all CT scans at this facility use dose modulation, iterative reconstruction, and/or weight-based dosing when appropriate to reduce radiation dose to as low as reasonably achievable. Dictated by Alfredo Medina MD @ 03/03/2022 2:32:46 PM (Electronically Signed) Narrative 03/03/2022 2:32 PM CDT For Patients: ??As a result of the 21st Century Cures Act, medical imaging exams and procedure reports are released immediately into your electronic medical record. ??You may view this report before your referring provider. ??If you have questions, please contact your health care provider. CLINICAL INFORMATION: Status post cardiac catheterization now with worsening right groin pain radiating to the back. TECHNIQUE: Noncontrast, arterial, and venous phase contrast enhanced CT of the abdomen and pelvis were obtained. No enteric contrast was administered and therefore the study has decreased sensitivity for detection of bowel pathology. ?? 3D and/or MIP angiographic reconstructions were performed on a separate independent workstation with concurrent supervision of the image post processing in order to further delineate the angiographic anatomy for accurate interpretation. Contrast: 100 mL of Omnipaque 350 intravenous contrast was injected uneventfully prior to image acquisition. Radiation Dose Estimate (Total Exam DLP): 2313.56 mGy-cm. COMPARISON: None. FINDINGS : Evaluation For Active Hemorrhage: Ill-defined fat stranding in the right retroperitoneal region with slight expansion of the right psoas and iliopsoas musculature consistent with intramuscular hematoma. No extravasation on arterial or venous phase imaging to suggest active bleeding. CT Angiography Findings: Abdominal aorta: Diffuse atherosclerotic disease.Normal in course and caliber. No aneurysm or dissection. Celiac axis: Patent. Superior mesenteric artery: Patent. Inferior mesenteric artery: Patent. LEFT Renal: Patent. RIGHT Renal: Moderate ostial stenosis. RIGHT lower extremity : Common iliac artery: Patent. ? Internal iliac artery: Patent. External iliac artery: Patent. Common femoral artery: Patent. No evidence for pseudoaneurysm or dissection. LEFT lower extremity : Common iliac artery: Patent. ? Internal iliac artery: Patent. External iliac artery: Patent. Common femoral artery: Patent. No evidence of pseudoaneurysm or dissection. Visceral Findings: Lower Chest: Lung Bases: Mild bibasilar dependent atelectatic changes. No focal airspace opacities or pleural effusions. Heart/Pericardium: Visualized heart normal in size. Coronary artery atherosclerotic calcifications. No pericardial effusion. Abdomen/Pelvis: Liver: Unremarkable. ? Gallbladder: Unremarkable. Spleen: Unremarkable. Adrenal glands: Unremarkable. Kidneys: Enhance symmetrically without hydronephrosis. Pancreas: Unremarkable. Lymph nodes: No retroperitoneal, mesenteric, inguinal, or pelvic adenopathy by CT criteria. ?? Bowel: No bowel obstruction. Colonic diverticulosis, no evidence of diverticulitis. Urinary bladder: Limited evaluation due to underdistention. No gross pathology. Reproductive structures: Unremarkable for patient`s age. ? No abdominal/pelvis ascites or free intraperitoneal air. Musculoskeletal: Postsurgical changes in the bilateral inguinal regions. Visualized osseous structures demonstrate diffuse degenerative changes. Procedure Note Alfredo Medina MD - 03/03/2022 For Patients: As a result of the 21st Century Cures Act, medical imagingexams and procedure reports are released immediately into your electronicmedical record. You may view this report before your referring provider.If you have questions, please contact your health care provider. CLINICAL INFORMATION: Status post cardiac catheterization now with worsening right groin painradiating to the back. TECHNIQUE: Noncontrast, arterial, and venous phase contrast enhanced CT of theabdomen and pelvis were obtained. No enteric contrast was administered andtherefore the study has decreased sensitivity for detection of bowelpathology. 3D and/or MIP angiographic reconstructions were performed on a separateindependent workstation with concurrent supervision of the image postprocessing in order to further delineate the angiographic anatomy foraccurate interpretation. Contrast: 100 mL of Omnipaque 350 intravenous contrast was injecteduneventfully prior to image acquisition. Radiation Dose Estimate (Total Exam DLP): 2313.56 mGy-cm. COMPARISON: None. FINDINGS : Evaluation For Active Hemorrhage: Ill-defined fat stranding in the rightretroperitoneal region with slight expansion of the right psoas andiliopsoas musculature consistent with intramuscular hematoma. Noextravasation on arterial or venous phase imaging to suggest activebleeding. CT Angiography Findings: Abdominal aorta: Diffuse atherosclerotic disease.Normal in course andcaliber. No aneurysm or dissection. Celiac axis: Patent. Superior mesenteric artery: Patent. Inferior mesenteric artery: Patent. LEFT Renal: Patent. RIGHT Renal: Moderate ostial stenosis. RIGHT lower extremity : Common iliac artery: Patent. Internal iliac artery: Patent. External iliac artery: Patent. Common femoral artery: Patent. No evidence for pseudoaneurysm ordissection. LEFT lower extremity : Common iliac artery: Patent. Internal iliac artery: Patent. External iliac artery: Patent. Common femoral artery: Patent. No evidence of pseudoaneurysm ordissection. Visceral Findings: Lower Chest: Lung Bases: Mild bibasilar dependent atelectatic changes. No focalairspace opacities or pleural effusions. Heart/Pericardium: Visualized heart normal in size. Coronary arteryatherosclerotic calcifications. No pericardial effusion. Abdomen/Pelvis: Liver: Unremarkable. Gallbladder: Unremarkable. Spleen: Unremarkable. Adrenal glands: Unremarkable. Kidneys: Enhance symmetrically without hydronephrosis. Pancreas: Unremarkable. Lymph nodes: No retroperitoneal, mesenteric, inguinal, or pelvicadenopathy by CT criteria. Bowel: No bowel obstruction. Colonic diverticulosis, no evidence ofdiverticulitis. Urinary bladder: Limited evaluation due to underdistention. No grosspathology. Reproductive structures: Unremarkable for patient`s age. No abdominal/pelvis ascites or free intraperitoneal air. Musculoskeletal: Postsurgical changes in the bilateral inguinal regions. Visualized osseousstructures demonstrate diffuse degenerative changes. IMPRESSION: 1. Fat stranding in the right retroperitoneum most likely representingill- defined hemorrhage with expansion of the psoas and iliopsoas muscleconsistent with intramuscular hematoma. No extravasation on arterial orvenous phase imaging to suggest active bleeding. Please note that all CT scans at this facility use dose modulation,iterative reconstruction, and/or weight-based dosing when appropriate toreduce radiation dose to as low as reasonably achievable. 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 Healthcare Directive 06/09/2012 012 * Full Code (Latest Code Status on File) Date Activated Date Inactivated Comments 12/16/2022 9:34 AM 12/16/2022 11:57 PM Question Answer Comments Code Status Discussion: Reviewed Preferences * Full Code Date Activated Date Inactivated Comments 05/18/2022 6:06 AM 05/20/2022 7:34 PM Question Answer Comments Code Status Discussion: Unable to Assess Preferences, Provider to review later * Full Code Date Activated Date Inactivated Comments 03/02/2022 2:07 PM 03/04/2022 3:44 PM Question Answer Comments Code Status Discussion: Reviewed Preferences * Full Code Date Activated Date Inactivated Comments 03/02/2022 2:07 PM 03/02/2022 2:07 PM Question Answer Comments Code Status Discussion: Reviewed Preferences * Full Code Date Activated Date Inactivated Comments 01/13/2022 12:06 PM 01/14/2022 4:47 PM Question Answer Comments Code Status Discussion: Unable to Assess Preferences, Provider to review later Care Teams Sociology Faculty Member Relationship Specialty Start Date End Date Pranav Acosta MD [address] [place] [address] PCP - General Internal Medicine 12/27/22
--- OUTSIDE RECORDS SUMMARY | 2024-08-25 16:01 | XMS_ITS | Referral Summary ---
Author Organization [facility] Address [address] [place] [address] Care Team Providers Care Ic Design Engineer Name Role Phone Elsewhere, Pcp Primary Care Provider Unavailabl e Source Comments Patient records contain information from all sites at [facility]. For routine questions regarding patient records, call [phone] during business hours, M-F 8:00 AM - 5:00 PM Central Time. Record requests for emergency care only can be directed to [phone] at any time.[facility] Allergies No known active allergies Medications [...] 08/31/2022 11:00 AM CDT Plan of Treatment Not on file Procedures Procedure Name Priority Date/Time Associated Diagnosis Comments BASIC METABOLIC PANEL, S/P Routine 11/30/2022 8:58 AM CLINICAL APPLICATIONS SPECIALIST Other Chest Pain from Last 3 Months or Most Recently Relevant to Health Maintenance Results * (ABNORMAL) Basic Metabolic Panel (11/30/2022 8:58 AM CLINICAL APPLICATIONS SPECIALIST) Potassium, P 4.4 3.6 - 5.2 mmol/L 11/30/2022 9:27 AM CLINICAL APPLICATIONS SPECIALIST NPRG Sodium, P 128(L) 135 - 145 mmol/L 11/30/2022 9:27 AM CLINICAL APPLICATIONS SPECIALIST NPRG Chloride, P 93(L) 98 - 107 mmol/L 11/30/2022 9:27 AM CLINICAL APPLICATIONS SPECIALIST NPRG Bicarbonate, P 25 22 - 29 mmol/L 11/30/2022 9:27 AM CLINICAL APPLICATIONS SPECIALIST NPRG Anion Gap, P 10 7 - 15 11/30/2022 9:27 AM CLINICAL APPLICATIONS SPECIALIST NPRG BUN (Blood Urea Nitrogen), P 18 8 - 24 mg/dL 11/30/2022 9:27 AM CLINICAL APPLICATIONS SPECIALIST NPRG Creatinine 0.90 0.74 - 1.35 mg/dL 11/30/2022 9:27 AM CLINICAL APPLICATIONS SPECIALIST NPRG Estimated GFR (eGFR) >90 >=60 mL/min/BSA 11/30/2022 9:27 AM CLINICAL APPLICATIONS SPECIALIST NPRG Comment: Estimated GFR calculated using the 2020 CKD_EPI creatinine equation. Calcium, Total, P 9.5 8.8 - 10.2 mg/dL 11/30/2022 9:27 AM CLINICAL APPLICATIONS SPECIALIST NPRG Glucose, P 94 70 - 140 mg/dL 11/30/2022 9:27 AM CLINICAL APPLICATIONS SPECIALIST NPRG Blood (Blood, Venous) 11/30/2022 8:58 AM CLINICAL APPLICATIONS SPECIALIST 11/30/2022 9:09 AM CLINICAL APPLICATIONS SPECIALIST Abilio Qureshi M.D. LAB BLOOD ADD-ON Final Resul t [facility] [address] [place] [address], [place] NPRG [facility] [address] [place] [address] from Last 3 Months or Most Recently Relevant to Health Maintenance Insurance [employer] Care Teams Ic Design Engineer Relationship Specialty Start Date End Date Elsewhere, Pcp PCP - General Internal Medicine 04/28/23
--- OUTSIDE RECORDS SUMMARY | 2024-08-25 16:01 | XMS_ITS | Continuity of Care Document ---
Author Organization [facility] Address [address] [address] [place] [address] Phone Care Team Providers Care Devops Developer Name Role Phone Luis Toledo MD, Du Unavailable Unavailabl e Allergies, Adverse Reactions, Alerts Substance Reaction Status Criticality No Known allergies Medications Medication Instructions Dosage Effective Dates (start - stop) Status Comments levothyroxine 125 mcg tablet take 1 tablet by oral route every day 125 MCG - Active aspirin 81 mg tablet,delayed release take 1 tablet by oral route 2- 3 times every week 81 MG - Active Calcium 600 600 mg (1,500 mg) tablet take 1 Tablet by Oral route once 1 Tablet - Active Centrum Silver 0.4 mg-300 mcg-250 mcg tablet - Active Procedures Procedure Date Level Iv-surg Path Gross/micro 15 CRS Charges Advance Directives Directive Yes / No Effective Date File Name No Information Encounters Encounter Description Practice Location Reason(s) For Visit Diagnoses Date Provider Providers Copied on Encounter [facility], [address] [address], [place], [id number], [place] tel:[phone] [facility] No Information 3 Luis Sandy. [address] [facility], [place], [id number] , [place]. tel:[phone] [facility], [address] [address], [place], [id number], [place] tel:[phone] [facility] Colonic polypDiverticulosis of colonHemorrhoidsCol on Cancer ScreeningHemorrhoid sDiverticulosis Of ColonBenign Neoplasm Colon Sep-0 [address] [facility] [address], [place], [address], [place]. tel: [phone] Family History Family Member Type Diagnosis Age At Onset Sister Problem (finding) malignant neop lasm of breast in first degree relative Mother Problem (finding) malignant neop lasm of breast in first degree relative Daughter Problem (finding) Thyroid disorder Sister Problem (finding) Thyroid disorder Father Problem (finding) Brother Problem (finding) Alive and well Daughter Problem (finding) Alive and well Sister Problem (finding) Alive and well Mother Problem (finding) Son Problem (finding) Alive and well Payers Payer name Insurance type Covered libertarian ID Authoriza tion(s) No Information Social History Type Description Quantity Date Captured Comments Sex Male Smoking Status No Information Chief Complaint And Reason For Visit No Information Reason For Referral Reason For Referral No Information History Of Present Illness Encounter Date Complaint History Of Prese nt Illness No Information Functional Status Date Functional Assessmen t No Information Instructions Date Instruction Additional Infor mation No Information Assessments Type Assessment Date No Information Patient Care Teams Name Effective Dates (start - stop) Status Members No Information
--- OUTSIDE RECORDS SUMMARY | 2024-08-25 16:01 | XMS_ITS ---
Author Organization [facility] Address [address] [place] [address] Care Team Providers Care Parachute Taper Name Role Phone Unavailable Unavailable Unavailable Surgery Details Not on file Complications Check Surgery Details section. Procedure Estimated Blood Loss Check Surgery Details section. Procedure Findings Check Surgery Details section. Procedure Specimens Taken Check Surgery Details section.
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
== END 2024-08-25 17:04 | disposition home or self-care (01) ==
PROVIDERS: Emergency Provider Family Medicine
DX: S61.210A Laceration without foreign body of right index finger without damage to nail, initial encounter (principal); W23.0XXA Caught, crushed, jammed, or pinched between moving objects, initial encounter
CPT/HCPCS: 12001; 73140; 99283; 99284